=== PATIENT | female | born 1945 | race Caucasian/White ===

== ENCOUNTER 2016-04-01 19:36 | Observation (INO) | payer MEDICARE, MEDICAID ==
[~2016-04-01] VITALS: Ht 149.9 cm; Wt 74.7 kg
[~2016-04-01 19:36] MED LIST: /WARF25TA; ACET65TA; AZEL0.05; BACL10TA2; BACL10TA2 PO; BISA10SU2; BISA5TA; BONI150T PO; BONIVA; CALC12502; CALC500C PO; CLOBETASOL; COLA100C PO; DETR4CAP; DETR4CAP10 PO; DILA100C; DILA100C PO; DOVONEX; DRIS50002 PO; DULC10SU2 PR; FLUO0.0114 AS; KEFL500C7 PO; MILKSUS; MIRALEX; NORV5TAB PO; NYST100024 TOP; PERC5TAB6 PO; PERC5TAB8; PERCOCET PO; PHEN30CA PO; PRIL20CA9 PO; SENO8.6T2 PO; SENO8.6T5; SERT-141 PO; THERGRAN; TYLE325T5 PO; VITA100C7; VITA500C3 PO; VITACHTA PO; VITAMIN D50000 UNT; ZOCO10TA; ZOCO10TA PO; [UNRECOGNIZED DRUG - CODE] AS; [UNRECOGNIZED DRUG - CODE] PO; [UNRECOGNIZED DRUG - OTHER]; boniva
[2016-04-01 20:27] LABS: ANION GAP 7 MEQ/L (8-16); BLOOD UREA NITROGEN 11 MG/DL (7-18); CALCIUM LEVEL 9.2 MG/DL (8.8-10.2); CARBON DIOXIDE LEVEL 33 MEQ/L (21-32); CHLORIDE LEVEL 97 MEQ/L (98-107); CREATININE FOR GFR 0.69 MG/DL (0.55-1.02); GLOMERULAR FILTRATION RATE > 60.0 (>39); GLUCOSE, FASTING 106 MG/DL (83-110); POTASSIUM SERUM 3.8 MEQ/L (3.5-5.1); SODIUM LEVEL 137 MEQ/L (136-145)
[2016-04-01 20:29] LABS: BASO # 0.1 K/mm3 (0.0-0.2); BASO % 0.4 % (0.0-1.0); EOS # 0.2 K/mm3 (0.0-0.50); EOS % 1.3 % (0.0-3.0); LARGE UNSTAINED CELL # 0.4 K/mm3 (0.0-0.4); LARGE UNSTAINED CELL % 2.3 % (0.0-4.0); LYMPH # 9.6 K/mm3 (1.5-4.5); LYMPH % 60.8 % (24.0-44.0); MEAN CORPUSCULAR HEMOGLOBIN 30.8 pg (27.0-33.0); MEAN CORPUSCULAR HGB CONC 33.2 g/dl (32.0-36.5); MEAN CORPUSCULAR VOLUME 92.6 fl (80.0-96.0); MONO # 0.7 K/mm3 (0.0-0.8); MONO % 4.5 % (0.0-5.0); NEUTROPHILS # 4.7 K/mm3 (1.8-7.7); NEUTROPHILS % 30.7 % (36.0-66.0); PLATELET COUNT, AUTOMATED 242 k/mm3 (150-450); RED CELL DISTRIBUTION WIDTH 12.3 % (11.5-14.5)
[2016-04-01 20:36] LABS: INR 0.95
[2016-04-01 20:48] LABS: WHITE BLOOD COUNT 15.3 K/mm3 (4.0-10.0)
[2016-04-01] MEDS ORDERED: hydrALAZINE INJ 20 MG/ML VIAL As Ordered ONE (21:04)
--- NOTE | 2016-04-01 21:10 | REPUSA ---
CT of the head Clinical history: CVA. Technique: Multiple axial CT images were obtained through the head without administration of contrast . Findings: Post-surgical changes in the right frontal region causes extreme metallic artifact, limitin g evaluation of this region. The visualized ventricles and sulci are symmetric bilaterally. Encephalo malacia the right temporal lobe is noted. There is no evidence of acute hemorrhage or infarct. There is no midline shift, mass effect, or extra-axial fluid collection. The osseous structures are unremar kable. The visualized paranasal sinuses and mastoid air cells are clear. Impression: No acute abnormality on this highly limited study. The right frontal lobe is completely o bscured. Chronic surgical changes in the right frontal region with encephalomalacia the right tempora l lobe is appreciated.
[2016-04-01] MEDS ORDERED: DETR4CAP10 PO (22:39)
[2016-04-01] MEDS ORDERED: VITMTA PO (22:39)
[2016-04-01] MEDS ORDERED: ASCO500T PO (22:39)
[2016-04-01] MEDS ORDERED: PHEN30CA PO (22:39)
[2016-04-01] MEDS ORDERED: STEL45IN SC (22:41)
[2016-04-01] MEDS ORDERED: FLUT0.003 EXT (22:41)
[2016-04-01] MEDS ORDERED: ONDANSETRON 4MG/2ML VIAL (J2405) IV PRN (23:30)
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
[2016-04-02] VITALS (8 sets, daily range): BP systolic 134–167; BP diastolic 60–78; PULSE 79
[2016-04-02] MEDS: PHENYTOIN ER 100 MG CAP PO SCH ×3 (02:28→21:07)
[2016-04-02] MEDS: SERTRALINE HCL 50 MG TAB PO SCH ×2 (02:29→21:06)
[2016-04-02] MEDS: SIMVASTATIN 10 MG TAB PO SCH ×2 (02:29→21:06)
[2016-04-02] MEDS: PHENYTOIN ER 30 MG CAP PO SCH ×2 (02:29→21:07)
[2016-04-02] MEDS: BACLOFEN 10 MG TAB PO SCH ×4 (02:29→21:06)
[2016-04-02] MEDS: NYSTATIN 100,000 UNITS/GM TOPICAL PWD 15 GM TOP SCH ×3 (02:30→21:00)
[2016-04-02] MEDS ORDERED: HEPARIN SOD (PORCINE) 5000 UNITS/ML VIAL As Ordered ONE ×2 (05:42→13:23)
[2016-04-02] MEDS: HEPARIN SOD (PORCINE) 5000 UNITS/ML VIAL SC SCH ×3 (05:46→21:07)
[2016-04-02 07:19] LABS: MEAN CORPUSCULAR HGB CONC 33.8 g/dl (32.0-36.5); MEAN CORPUSCULAR VOLUME 91.5 fl (80.0-96.0); RED CELL DISTRIBUTION WIDTH 12.5 % (11.5-14.5); WHITE BLOOD COUNT 10.2 K/mm3 (4.0-10.0)
[2016-04-02 07:52] LABS: ANION GAP 9 MEQ/L (8-16); BLOOD UREA NITROGEN 9 MG/DL (7-18); CALCIUM LEVEL 8.5 MG/DL (8.8-10.2); CARBON DIOXIDE LEVEL 25 MEQ/L (21-32); CHLORIDE LEVEL 107 MEQ/L (98-107); GLOMERULAR FILTRATION RATE > 60.0 (>39); GLUCOSE, FASTING 106 MG/DL (83-110); POTASSIUM SERUM 3.9 MEQ/L (3.5-5.1); SODIUM LEVEL 141 MEQ/L (136-145)
--- NOTE | 2016-04-02 08:23 | REP ---
Portable chest, 08:26 p.m., single AP view, the patient semi upright: Comparison is 2014. The lung estrada are clear. The cardiac size is normal The jesus, mediastinum, and bony thorax are unremarkable. Impression: Negative portable chest. Signed by Agustín Moreland MD 04/02/2016 08:14 A
[2016-04-02] MEDS: ASCORBIC ACID 500 MG TAB PO SCH (09:16)
[2016-04-02] MEDS: MULTIVITAMINS/MINERALS THERAP 1 TAB PO SCH (09:16)
[2016-04-02] MEDS: OMEPRAZOLE 20 MG CAP PO SCH (09:16)
[2016-04-02] MEDS: CALCIUM CARBONATE 500 MG CHEW U/D PO SCH ×2 (09:16→21:07)
[2016-04-02] MEDS: amLODIPine 5 MG TAB PO SCH (09:16)
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
--- NOTE | 2016-04-02 14:21 | EDDOCDS ---
Physician Documentation [facility] Name: Smitha Davis Age: 71 yrs Sex: Female : 1945 Arrival Date: 04/01/2016 Time: 19:36 Bed Admit Hold Private MD: NO PRIMARY PHYSICIAN, . Disposition: 04/01/16 22:06 Hospitalization ordered by Brian Do for Inpatient Admission. Preliminary diagnosis is Transient cerebral ischemic attack, unspecified. - Bed requested for PCU. - Status is Inpatient Admission. bcj - Condition is Stable. - Problem is an acute exacerbation. - Symptoms have improved. Historical: - Allergies: No known drug Allergies; - Home Meds: 1. Dilantin Oral 100 mg twice a day 2. Zocor 10 mg Oral tab once daily 3. Vitamin C Oral 4. Boniva 150 mg oral tab once a month 5. Detrol LA 4 mg Oral cp24 6. calcium carbonate 500 mg calcium (1,250 mg) Oral cap 7. Nystatin Topical - PMHx: Unable to obtain; - PSHx: Unable to obtain; - Social history: Smoking status: Patient states was never smoker of tobacco. No barriers to communication noted, The patient speaks fluent Russian, Speaks appropriately for age. - Family history: Not pertinent. - : The pt / caregiver states he / she is not on anticoagulants. Home medication list is obtained from the facility APR. - Exposure Risk Screening:: None identified. Vital Signs: 04/01 19:38 BP 201 / 70; Pulse 59; Resp 18 S; Temp 96.1(O); Pulse Ox 100% on R/A; Weight 63.5 kg / gr2 139.99 lbs (R); Height 4 ft. 11 in. (149.86 cm) (R); Pain 5/10; 20:59 Pulse 86 MON; Pulse Ox 100% ; ld5 21:00 BP 195 / 69 (auto/); ld5 21:10 BP 188 / 79 (auto/); ld5 21:10 Pulse 60 MON; ld5 21:15 BP 172 / 79 (auto/); ld5 21:15 Pulse 60 MON; Pulse Ox 99% ; ld5 21:30 BP 154 / 70 (auto/); ld5 21:30 Pulse 71 MON; Pulse Ox 100% ; ld5 21:45 BP 164 / 74 (auto/); ld5 21:46 Pulse 78 MON; Pulse Ox 100% ; ld5 22:00 BP 138 / 65 (auto/); ld5 22:00 Pulse 75 MON; Pulse Ox 100% ; ld5 22:15 BP 126 / 58 (auto/); ld5 22:15 Pulse 70 MON; Pulse Ox 100% ; ld5 22:45 BP 133 / 62 (auto/); ld5 22:45 Pulse 71 MON; Resp 16; Temp 98; Pulse Ox 98% ; ld5 23:00 BP 137 / 63 (auto/); ld5 23:00 Pulse 70 MON; Pulse Ox 98% ; ld5 23:15 BP 152 / 71 (auto/); ld5 23:15 Pulse 72 MON; Pulse Ox 98% ; ld5 23:30 BP 148 / 69 (auto/); ld5 23:30 Pulse 74 MON; Pulse Ox 99% ; ld5 23:45 BP 149 / 69 (auto/); ld5 23:45 Pulse 71 MON; Pulse Ox 97% ; ld5 04/02 00:00 Pulse 68 MON; Pulse Ox 95% ; ld5 00:00 BP 117 / 58 (auto/); ld5 00:15 BP 112 / 54 (auto/); ld5 00:15 Pulse 67 MON; Pulse Ox 95% ; ld5 00:30 BP 135 / 63 (auto/); ld5 00:30 Pulse 69 MON; Pulse Ox 99% ; ld5 00:45 BP 143 / 65 (auto/); ld5 00:45 Pulse 68 MON; Pulse Ox 100% ; ld5 01:00 BP 131 / 57 (auto/); ld5 01:00 Pulse 65 MON; Pulse Ox 98% ; ld5 04/01 19:38 Body Mass Index 28.28 (63.50 kg, 149.86 cm) gr2 MDM: 04/01 20:13 RN interventions must not delay CT ordered. mm11 20:13 Cooker Syrup/Pulse Ox/q 15 min VS ordered. mm11 20:13 Accucheck ordered. mm11 20:13 IV Saline Lock ordered. mm11 20:13 Neuro VS q 15 Minutes ordered. mm11 20:13 Patient must be on CC stretcher and weighed via bed scale ordered. mm11 20:13 Rhythm Strip to chart ordered. mm11 20:14 Type & Screen Ordered. EDMS 20:14 CT Head Without Contrast Ordered. EDMS 20:15 Basic Metabolic Profile Ordered. EDMS 20:15 CBC with Diff Ordered. EDMS 20:15 Partial Thromboplastin Time Ordered. EDMS 20:15 Prothrombin Time Profile\E\INR Ordered. EDMS 20:17 Chest, 1 View Ordered. EDMS 20:17 ECG WITH READING ER PHYS+CARDIAG ordered. EDMS 20:25 Fingerstick Blood Sugar Ordered. EDMS 20:47 Financial registration complete. [email or web address] 20:47 [facility] Payment Agreement was scanned into [employer] and attached to record. [email or web address] 20:56 Basic Metabolic Profile Reviewed. mm11 20:56 CBC with Diff Reviewed. mm11 20:56 Partial Thromboplastin Time Reviewed. mm11 20:56 Prothrombin Time Profile\E\INR Reviewed. mm11 20:56 Type & Screen Reviewed. mm11 20:56 Fingerstick Blood Sugar Reviewed. mm11 20:57 hydrALAZINE 10 mg IV at bolus once ordered. mm11 20:58 UA Ordered. EDMS 20:58 Urine Culture Ordered. EDMS 21:36 UA Reviewed. mm11 21:36 CT Head Without Contrast Reviewed. mm11 21:52 BED REQUEST+ADM ordered. EDMS 22:33 NS 0.9% 1000 ml IV at 75 mL/hr continuous ordered. mm11 23:26 Admission / Observation Status ordered. EDMS 23:26 2 GRAM SODIUM DIET ordered. EDMS 23:27 PHENYTOIN Ordered. EDMS 23:27 COMPLETE BLOOD COUNT Ordered. EDMS 23:27 BASIC METABOLIC PROFILE Ordered. EDMS 23:27 MAGNESIUM LEVEL Ordered. EDMS 23:27 BLOOD CULTURES Ordered. EDMS 23:29 PHYSICAL THERAPY EVAL & TREAT ordered. EDMS 04/02 09:29 T-Sheet-- Draft Copy was scanned into [employer] and attached to record. Point of Care Testing: Blood Glucose: 04/01 20:15 Blood Glucose: 108 mg/dL; ld5 Ranges: Administered Medications: 20:57 CANCELLED (Other Intervention Used): Labetalol 10 mg IVP at bolus once over 2 mins mm11 21:17 Drug: hydrALAZINE 10 mg [hydralazine 20 mg/mL injection solution] Route: IV; Rate: ld5 bolus; Site: right antecubital; 22:45 Follow up: Response: Blood pressure is improved ld5 22:45 Drug: NS 0.9% 1000 ml [sodium chloride 0.9 % intravenous solution] Route: IV; Rate: 75 ld5 mL/hr; Site: right antecubital; Signatures: Dispatcher [employer] Phu Dale, RN RN Josef Moreau RN RN cz Yajaira Pulido, Reg Reg gb Sixto Hayward, DO mm11 Rama Law RN RN ld5 Kori Mcclelland RN RN [facility]2 Radha Richards, Reg Reg [email or web address] The chart was reviewed and I authenticate all verbal orders and agree with the evaluation and treatment provided.Corrections: (The following items were deleted from the chart) 20:57 20:56 Labetalol 10 mg IVP at bolus once over 2 mins ordered. mm11 mm11 Attachments: 20:47 [facility] Payment Agreement [email or web address] 04/02 09:29 T-Sheet-- Draft Copy MTDD
--- NOTE | 2016-04-02 14:22 | EDDOCDS ---
Nurse's Notes [facility] Name: Smitha Davis Age: 71 yrs Sex: Female : 1945 Arrival Date: 04/01/2016 Time: 19:36 Bed Admit Hold Private MD: NO PRIMARY PHYSICIAN, . Diagnosis: Transient cerebral ischemic attack, unspecified Presentation: 04/01 19:46 Presenting complaint: inpatient coder says that pt was eating dinner around 1730 and head cz slumped forward and speech became abnormal. pt complains of headache .speech is thick and not normal per inpatient coder. The last date and time the patient was known to be well was was at 17:00 on April 01, 2016. Adult Sepsis Screening: Patient has new or worsening altered mentation (1 point). Patient's respiratory rate is less than 22. Systolic blood pressure is greater than 100. Patient has a qSOFA score of 1- Negative Sepsis Screen. Suicide/Homicide risk assessment- the patient denies having any suicidal and/or homicidal ideations and does not present with any other emotional, behavioral or mental health complaints. Status: Patient is not a general service officer or dependent. Transition of care: patient was not received from another setting of care. 19:46 Acuity: ZACHARIAH Level 2 cz 19:46 Method Of Arrival: Wheelchair cz 04/02 14:20 No acute neurological deficit is noted. Pre-hospital glucose is not applicable to this [facility] patient. Triage Assessment: 04/01 19:53 The onset of the patients symptoms was less than three hours ago. General: Appears cz uncomfortable. Pain: Location: face. Neurological: Level of Consciousness is awake, alert, Speech is slurred, Facial symmetry appears normal. Historical: - Allergies: No known drug Allergies; - Home Meds: 1. Dilantin Oral 100 mg twice a day 2. Zocor 10 mg Oral tab once daily 3. Vitamin C Oral 4. Boniva 150 mg oral tab once a month 5. Detrol LA 4 mg Oral cp24 6. calcium carbonate 500 mg calcium (1,250 mg) Oral cap 7. Nystatin Topical - PMHx: Unable to obtain; - PSHx: Unable to obtain; - Social history: Smoking status: Patient states was never smoker of tobacco. No barriers to communication noted, The patient speaks fluent Colombian, Speaks appropriately for age. - Family history: Not pertinent. - : The pt / caregiver states he / she is not on anticoagulants. Home medication list is obtained from the facility MAR. - Exposure Risk Screening:: None identified. Screenin:07 Screening information is obtained from the patient, residence staff, prior medical ld5 records. Fall risk: At risk due to apparent cognitive impairment. Assistance ADL's: Requires assistance with meal preparation, this assistance is provided by residence staff, bathing, assistance is provided by residence staff, dressing, assistance is provided by residence staff, toileting, assistance is provided by residence staff, ambulation, assistance is provided by Per staff, pt usually ambulatory with no assistance. medication administration, assistance is provided by residence staff. Abuse/DV Screen: The patient / caregiver reports he/she is: not in a situation that causes fear, pain or injury. home support is adequate. 04/02 14:18 Nutritional screening: No deficits noted. Advance Directives: There is no active DNR bcj order. Assessment: 04/01 20:03 General: Appears in no apparent distress, Behavior is cooperative. Pain: Location: head ld5 Quality of pain is described as "splitting". Neurological: Level of Consciousness is awake, obeys commands, Oriented to place, time, pt unable to fully state . Pt states January but is unable to finish. [facility] staff member states pt usually knows . Neurological: left foot weaker than right foot, strong telehealth nurse educator to bilateral hands. Speech delayed. Facial droop on left. Respiratory: Airway is patent Respiratory effort is even, unlabored. GI: Reports nausea, Denies vomiting. Musculoskeletal: contracted left hand. [facility] staff reports pt had accident as a child so has had problems to left arm since. 20:50 General: Appears in no apparent distress, Behavior is cooperative. Pain: Location: head ld5 Pain currently is 4 out of 10 on a pain scale. Neurological: Level of Consciousness is awake, alert, Oriented to person, place, time. Respiratory: Airway is patent Respiratory effort is even, unlabored, Breath sounds are clear bilaterally. GI: Bowel sounds present X 4 quads. Abd is soft and non tender X 4 quads. 21:18 General: Pt assisted with bedpan. Tolerated well. Pt medicated per orders. Family ld5 member and [facility] staff at bedside. No new complaints at this time. Will continue to monitor. 21:35 General: Pt laying in bed with eyes closed. Arouses to voice. Will continue to monitor. ld5 21:50 General: Appears in no apparent distress. Respiratory: Airway is patent Respiratory ld5 effort is even, unlabored. Derm: Skin is intact. 22:24 General: Appears in no apparent distress. General: Pt resting comfortably in bed. Will ld5 continue to monitor. Respiratory: Airway is patent Respiratory effort is even, unlabored. 22:45 General: Pt states feeling "better". Headache minimal. Fluids started per orders. Spoke ld5 with pt, family member and [facility] staff about bed availability and the chance of staying in ER. All are understanding at this time. Will continue to monitor. 23:36 General: Appears in no apparent distress, Pt sleeping. Respirations easy and unlabored. ld5 Will continue to monitor. 04/02 00:19 General: Pt sleeping. No apparent distress. Fluids infusing. Will continue to monitor. ld5 00:48 General: Appears in no apparent distress, to be sleeping. Respiratory: Airway is patent ld5 Respiratory effort is even, unlabored. 01:03 General: Appears in no apparent distress. Respiratory: Airway is patent Respiratory ld5 effort is even, unlabored. Vital Signs: 04/01 19:38 BP 201 / 70; Pulse 59; Resp 18 S; Temp 96.1(O); Pulse Ox 100% on R/A; Weight 63.5 kg gr2 (R); Height 4 ft. 11 in. (149.86 cm) (R); Pain 5/10; 20:59 Pulse 86 MON; Pulse Ox 100% ; ld5 21:00 BP 195 / 69 (auto/); ld5 21:10 BP 188 / 79 (auto/); ld5 21:10 Pulse 60 MON; ld5 21:15 BP 172 / 79 (auto/); ld5 21:15 Pulse 60 MON; Pulse Ox 99% ; ld5 21:30 BP 154 / 70 (auto/); ld5 21:30 Pulse 71 MON; Pulse Ox 100% ; ld5 21:45 BP 164 / 74 (auto/); ld5 21:46 Pulse 78 MON; Pulse Ox 100% ; ld5 22:00 BP 138 / 65 (auto/); ld5 22:00 Pulse 75 MON; Pulse Ox 100% ; ld5 22:15 BP 126 / 58 (auto/); ld5 22:15 Pulse 70 MON; Pulse Ox 100% ; ld5 22:45 BP 133 / 62 (auto/); ld5 22:45 Pulse 71 MON; Resp 16; Temp 98; Pulse Ox 98% ; ld5 23:00 BP 137 / 63 (auto/); ld5 23:00 Pulse 70 MON; Pulse Ox 98% ; ld5 23:15 BP 152 / 71 (auto/); ld5 23:15 Pulse 72 MON; Pulse Ox 98% ; ld5 23:30 BP 148 / 69 (auto/); ld5 23:30 Pulse 74 MON; Pulse Ox 99% ; ld5 23:45 BP 149 / 69 (auto/); ld5 23:45 Pulse 71 MON; Pulse Ox 97% ; ld5 02 00:00 Pulse 68 MON; Pulse Ox 95% ; ld5 00:00 BP 117 / 58 (auto/); ld5 00:15 BP 112 / 54 (auto/); ld5 00:15 Pulse 67 MON; Pulse Ox 95% ; ld5 00:30 BP 135 / 63 (auto/); ld5 00:30 Pulse 69 MON; Pulse Ox 99% ; ld5 00:45 BP 143 / 65 (auto/); ld5 00:45 Pulse 68 MON; Pulse Ox 100% ; ld5 01:00 BP 131 / 57 (auto/); ld5 01:00 Pulse 65 MON; Pulse Ox 98% ; ld5 04/01 19:38 Body Mass Index 28.28 (63.50 kg, 149.86 cm) gr2 Vitals: 04/01 19:38 Log In Time: April 01, 2016 at 19:38. RN notified that patient meets Red Flag gr2 criteria. 04/02 14:21 Glucose Measurement D-stick deferred by provider. [facility] ED Course: 04/01 19:38 Patient visited by Ras Chirinos. gr2 19:38 NO PRIMARY PHYSICIAN, . is Private Physician. gr2 19:38 Patient moved to Waiting gr2 19:41 Patient moved to 1 cz 19:42 Sixto Hayward DO is Attending Physician. mm11 19:42 Patient visited by Sixto Hayward DO. mm11 19:42 Patient visited by Ras Chirinos. gr2 19:49 Triage Initiated cz 20:08 Patient visited by Rama Law,ASHLYN. ld5 20:08 Inserted saline lock: 18 gauge in right antecubital area and blood collected. The ld5 patient tolerated the procedure well. Labs drawn. (by ED staff). Sent per order to lab. 20:12 Patient visited by Sixto Hayward DO. mm11 20:14 Type & Screen Sent. ld5 20:18 Basic Metabolic Profile Sent. ld5 20:18 CBC with Diff Sent. ld5 20:19 Patient visited by Rama Law RN. ld5 20:19 Partial Thromboplastin Time Sent. ld5 20:19 Prothrombin Time Profile\\E\\INR Sent. ld5 20:20 Patient visited by Eliza Butt PCA. cln 20:20 EKG done. (by ED staff). Reviewed by Sixto Hayward DO. cln 20:47 [facility] Payment Agreement was scanned into [employer] and attached to record. ks16 21:12 CT Head Without Contrast Returned. EDMS 21:16 Urine Culture Sent. ld5 21:16 UA Sent. ld5 21:19 Patient visited by Rama Law RN. ld5 21:36 Patient visited by Rama Law,ASHLYN. ld5 22:06 Brian Do is Hospitalizing Provider. mm11 22:11 Patient visited by Rama Law RN. ld5 22:25 Patient visited by Rama Law,ASHLYN. ld5 22:47 Patient visited by Rama Law,ASHLYN. ld5 23:37 Patient visited by Rama Law RN. ld5 23:43 Patient moved to Admit Hold feb 22 00:20 Patient visited by Rama Law,ASHLYN. ld5 01:04 Patient visited by Rama Law,ASHLYN. ld5 01:16 Nighat Leonardo,RN is Primary Nurse. feb 01:16 Patient moved to 17 feb 03:19 Patient moved to Admit Hold feb 07:45 Primary Nurse role handed off by Nighat Leonardo,RN kr3 08:47 Chest, 1 View Returned. EDMS 09:29 T-Sheet-- Draft Copy was scanned into [employer] and attached to record. gb 14:18 No apparent distress. Resting quietly. bcj 14:18 The patient / caregiver is instructed regarding the plan of care and ED course. [facility] 14:18 No procedures done that require assistance. j 14:21 Patient visited by Phu Blair RN. j Administered Medications: 04/01 20:57 CANCELLED (Other Intervention Used): Labetalol 10 mg IVP at bolus once over 2 mins mm11 21:17 Drug: hydrALAZINE 10 mg [hydralazine 20 mg/mL injection solution] Route: IV; Rate: ld5 bolus; Site: right antecubital; 22:45 Follow up: Response: Blood pressure is improved ld5 22:45 Drug: NS 0.9% 1000 ml [sodium chloride 0.9 % intravenous solution] Route: IV; Rate: 75 ld5 mL/hr; Site: right antecubital; Point of Care Testing: Blood Glucose: 20:15 Blood Glucose: 108 mg/dL; ld5 Ranges: Output: 04/02 01:24 Urine: 525.00ml (Voided); Total: 525.00ml. ld5 Order Results: Lab Order: Basic Metabolic Profile; SPEC'M 04/01/16 19:57 Test: GLUCOSE, FASTING; Value: 106; Range: 83-110; Units: MG/DL; Status: F Test: BLOOD UREA NITROGEN; Value: 11; Range: 7-18; Units: MG/DL; Status: F Test: CREATININE FOR GFR; Value: 0.69; Range: 0.55-1.02; Units: MG/DL; Status: F Test: GLOMERULAR FILTRATION RATE; Value: > 60.0; Range: >39; Status: F Test: SODIUM LEVEL; Value: 137; Range: 136-145; Units: MEQ/L; Status: F Test: POTASSIUM SERUM; Value: 3.8; Range: 3.5-5.1; Units: MEQ/L; Status: F Test: CHLORIDE LEVEL; Value: 97; Range: 98-107; Abnormal: Below low normal; Units: MEQ/L; Status: F Test: CARBON DIOXIDE LEVEL; Value: 33; Range: 21-32; Abnormal: Above high normal; Units: MEQ/L; Status: F Test: ANION GAP; Value: 7; Range: 8-16; Abnormal: Below low normal; Units: MEQ/L; Status: F Test: CALCIUM LEVEL; Value: 9.2; Range: 8.8-10.2; Units: MG/DL; Status: F Test Note: ; Units are mL/min/1.73 m2 Chronic Kidney Disease Staging per NKF: Stage I & II GFR >=60 Normal to Mildly Decreased Stage III GFR 30-59 Moderately Decreased Stage IV GFR 15-29 Severely Decreased Stage V GFR <15 Very Little GFR Left ESRD GFR <15 on LISW Lab Order: CBC with Diff; SPEC'M 04/01/16 19:57 Test: WHITE BLOOD COUNT; Value: 15.3; Range: 4.0-10.0; Abnormal: Above high normal; Units: K/mm3; Status: F Test: RED BLOOD COUNT; Value: 4.33; Range: 4.00-5.40; Units: M/mm3; Status: F Test: HEMOGLOBIN; Value: 13.3; Range: 12.0-16.0; Units: g/dl; Status: F Test: HEMATOCRIT; Value: 40.1; Range: 36.0-47.0; Units: %; Status: F Test: MEAN CORPUSCULAR VOLUME; Value: 92.6; Range: 80.0-96.0; Units: fl; Status: F Test: MEAN CORPUSCULAR HEMOGLOBIN; Value: 30.8; Range: 27.0-33.0; Units: pg; Status: F Test: MEAN CORPUSCULAR HGB CONC; Value: 33.2; Range: 32.0-36.5; Units: g/dl; Status: F Test: RED CELL DISTRIBUTION WIDTH; Value: 12.3; Range: 11.5-14.5; Units: %; Status: F Test: PLATELET COUNT, AUTOMATED; Value: 242; Range: 150-450; Units: k/mm3; Status: F Test: NEUTROPHILS %; Value: 30.7; Range: 36.0-66.0; Abnormal: Below low normal; Units: %; Status: F Test: LYMPH %; Value: 60.8; Range: 24.0-44.0; Abnormal: Above high normal; Units: %; Status: F Test: MONO %; Value: 4.5; Range: 0.0-5.0; Units: %; Status: F Test: EOS %; Value: 1.3; Range: 0.0-3.0; Units: %; Status: F Test: BASO %; Value: 0.4; Range: 0.0-1.0; Units: %; Status: F Test: LARGE UNSTAINED CELL %; Value: 2.3; Range: 0.0-4.0; Units: %; Status: F Test: NEUTROPHILS #; Value: 4.7; Range: 1.8-7.7; Units: K/mm3; Status: F Test: LYMPH #; Value: 9.6; Range: 1.5-4.5; Abnormal: Above high normal; Units: K/mm3; Status: F Test: MONO #; Value: 0.7; Range: 0.0-0.8; Units: K/mm3; Status: F Test: EOS #; Value: 0.2; Range: 0.0-0.50; Units: K/mm3; Status: F Test: BASO #; Value: 0.1; Range: 0.0-0.2; Units: K/mm3; Status: F Test: LARGE UNSTAINED CELL #; Value: 0.4; Range: 0.0-0.4; Units: K/mm3; Status: F Test Note: ; A Pathologist review of this differential can help in the evaluation of a differential diagnosis. Please order a Pathologist Review (PATHREVCOMP) if deemed necessary. Results are subject to change if a Pathologist Review is performed. Lab Order: Partial Thromboplastin Time; SPEC'M 04/01/16 19:57 Test: PARTIAL THROMBOPLASTIN TIME; Value: 28.4; Range: 26.6-37.1; Units: SECONDS; Status: F Lab Order: Prothrombin Time Profile\\E\\INR; SPEC'M 04/01/16 19:57 Test: PROTHROMBIN TIME; Value: 12.8; Range: 12.3-14.5; Units: SECONDS; Status: F Test: INR; Value: 0.95; Status: F Test Note: ; THERAPUTIC HUMAN INR VALUES INDICATIONS NORMAL RANGES PROPHYLAXIS/TREATMENT OF: VENOUS THROMBOSIS 2.0-3.0 PULMONARY EMBOLISM 2.0-3.0 PREVENTION OF SYSTEMIC EMBOLISM FROM: TISSUE HEART VALVES 2.0-3.0 ACUTE MYOCARDIAL INFARCTION 2.0-3.0 VALVULAR HEART DISEASE 2.0-3.0 ATRIAL FIBRILLATION 2.0-3.0 MECHANICAL VALVES(HIGH RISK) 2.5-3.5 RECURRENT MYOCARDIAL INFARCTION 2.5-3.5 Lab Order: Type & Screen; [facility] 04/01/16 19:57 Test: BLOOD TYPE; Value: A NEG; Status: F Test: AB SCREEN (INDIRECT CARMENCITA)VIS; Value: NEGATIVE; Status: F Lab Order: Fingerstick Blood Sugar; [facility] 04/01/16 20:17 Test: BEDSIDE GLUCOSE; Value: 108; Range: 83-110; Units: MG/DL; Status: F Lab Order: UA; [facility] 04/01/16 21:14 Test: APPEARANCE, URINE; Value: CLEAR; Range: CLEAR; Status: F Test: COLOR, URINE; Value: COLORLESS; Range: YELLOW; Status: F Test: PH,URINE; Value: 8.0; Range: 5.0-9.0; Units: UNITS; Status: F Test: SPECIFIC GRAVITY URINE AUTO; Value: 1.002; Range: 1.002-1.035; Status: F Test: PROTEIN, URINE AUTO; Value: NEGATIVE; Range: NEGATIVE; Units: mg/dL; Status: F Test: GLUCOSE, URINE (UA) AUTO; Value: NEGATIVE; Range: NEGATIVE; Units: mg/dL; Status: F Test: KETONE, URINE AUTO; Value: NEGATIVE; Range: NEGATIVE; Units: mg/dL; Status: F Test: UROBILINOGEN, URINE AUTO; Value: 0.2; Range: 0.0-2.0; Units: mg/dL; Status: F Test: BILIRUBIN, URINE AUTO; Value: NEGATIVE; Range: NEGATIVE; Status: F Test: NITRITE, URINE AUTO; Value: NEGATIVE; Range: NEGATIVE; Status: F Test: LEUKOCYTE ESTERASE, URINE AUTO; Value: NEGATIVE; Range: NEGATIVE; Status: F Test: BLOOD, URINE BLOOD; Value: NEGATIVE; Range: NEGATIVE; Status: F Test: WBC, URINE AUTO; Value: 1; Range: 0-3; Units: /HPF; Status: F Test: RBC, URINE AUTO; Value: 1; Range: 0-3; Units: /HPF; Status: F Test: BACTERIA, URINE AUTO; Value: NEGATIVE; Range: NEGATIVE; Status: F Test: SQUAMOUS EPITHELIAL CELL UR AU; Value: 0; Range: 0-6; Units: /HPF; Status: F Test: HYALINE CAST, URINE AUTO; Value: 0; Range: 0-1; Units: /LPF; Status: F Lab Order: PHENYTOIN; 04/02/16 07:02 Test: PHENYTOIN (DILANTIN); Value: 19.3; Range: 10.0-20.0; Units: UG/ML; Status: F Lab Order: COMPLETE BLOOD COUNT; 04/02/16 07:02 Test: WHITE BLOOD COUNT; Value: 10.2; Range: 4.0-10.0; Abnormal: Above high normal; Units: K/mm3; Status: F Test: RED BLOOD COUNT; Value: 4.26; Range: 4.00-5.40; Units: M/mm3; Status: F Test: HEMOGLOBIN; Value: 13.2; Range: 12.0-16.0; Units: g/dl; Status: F Test: HEMATOCRIT; Value: 39.0; Range: 36.0-47.0; Units: %; Status: F Test: MEAN CORPUSCULAR VOLUME; Value: 91.5; Range: 80.0-96.0; Units: fl; Status: F Test: MEAN CORPUSCULAR HEMOGLOBIN; Value: 31.0; Range: 27.0-33.0; Units: pg; Status: F Test: MEAN CORPUSCULAR HGB CONC; Value: 33.8; Range: 32.0-36.5; Units: g/dl; Status: F Test: RED CELL DISTRIBUTION WIDTH; Value: 12.5; Range: 11.5-14.5; Units: %; Status: F Test: PLATELET COUNT, AUTOMATED; Value: 198; Range: 150-450; Units: k/mm3; Status: F Lab Order: BASIC METABOLIC PROFILE; [facility]04/02/16 07:02 Test: GLUCOSE, FASTING; Value: 106; Range: 83-110; Units: MG/DL; Status: F Test: BLOOD UREA NITROGEN; Value: 9; Range: 7-18; Units: MG/DL; Status: F Test: CREATININE FOR GFR; Value: 0.50; Range: 0.55-1.02; Abnormal: Below low normal; Units: MG/DL; Status: F Test: GLOMERULAR FILTRATION RATE; Value: > 60.0; Range: >39; Status: F Test: SODIUM LEVEL; Value: 141; Range: 136-145; Units: MEQ/L; Status: F Test: POTASSIUM SERUM; Value: 3.9; Range: 3.5-5.1; Units: MEQ/L; Status: F Test: CHLORIDE LEVEL; Value: 107; Range: 98-107; Units: MEQ/L; Status: F Test: CARBON DIOXIDE LEVEL; Value: 25; Range: 21-32; Units: MEQ/L; Status: F Test: ANION GAP; Value: 9; Range: 8-16; Units: MEQ/L; Status: F Test: CALCIUM LEVEL; Value: 8.5; Range: 8.8-10.2; Abnormal: Below low normal; Units: MG/DL; Status: F Test Note: ; Units are mL/min/1.73 m2 Chronic Kidney Disease Staging per NKF: Stage I & II GFR >=60 Normal to Mildly Decreased Stage III GFR 30-59 Moderately Decreased Stage IV GFR 15-29 Severely Decreased Stage V GFR <15 Very Little GFR Left ESRD GFR <15 on LISW Lab Order: MAGNESIUM LEVEL; SPEC'M 04/02/16 07:02 Test: MAGNESIUM LEVEL; Value: 2.0; Range: 1.8-2.4; Units: MG/DL; Status: F Radiology Order: CT Head Without Contrast Test: CT Head Without Contrast REASON FOR EXAMINATION: CVA <4.5hrs; ; CT of the head; Clinical history: CVA.; Technique: Multiple axial CT images were obtained through the head without administration of contrast; .; Findings: Post-surgical changes in the right frontal region causes extreme metallic artifact, limitin; g evaluation of this region. The visualized ventricles and sulci are symmetric bilaterally. Encephalo; malacia the right temporal lobe is noted. There is no evidence of acute hemorrhage or infarct. There; is no midline shift, mass effect, or extra-axial fluid collection. The osseous structures are unremar; kable. The visualized paranasal sinuses and mastoid air cells are clear.; Impression: No acute abnormality on this highly limited study. The right frontal lobe is completely o; bscured. Chronic surgical changes in the right frontal region with encephalomalacia the right tempora; l lobe is appreciated.; ; Radiology Order: Chest, 1 View Test: Chest, 1 View REASON FOR EXAMINATION: CVA <4.5hrs; Portable chest, 08:26 p.m., single AP view, the patient semi upright:; ; Comparison is 2014.; ; The lung estrada are clear. The cardiac size is normal; ; The jesus, mediastinum, and bony thorax are unremarkable.; ; Impression:; ; Negative portable chest.; ; ; Signed by; Agustín Moreland MD 04/02/2016 08:14 A; Outcome: 04/01 22:06 Decision to Hospitalize by Provider. mm11 04/02 14:18 Discharge Assessment: patient administered narcotics - no. The following High Risk [facility] Discharge criteria are identified: None. Admitted to PCU accompanied by nurse, accompanied by tech, via stretcher, on monitor. Condition: stable. No special radiology studies were completed. Property :Personal belongings accompany Pt. 14:21 Patient left the ED. [facility] Signatures: Dispatcher [employer] EDMS Phu Blair, RN ASHLYN Marie, Alondra Vargas, RN Josef Wick, Yajaira Hunter RN, Reg Reg gb Rachael Elizabeth,RN RN Sixto Escobedo, DO mm11 Rama Law,ASHLYN RN [email or web address] Ras Chiirnos gr2 Radha Richards, Reg Reg [email or web address] Daquan, Eliza, DIE STAMPER DIE STAMPER cln MTDD
[2016-04-02] MEDS: ACETAMINOPHEN TAB 650MG DOSE (2X325MG) PO PRN ×2 (17:39→23:17)
--- NOTE | 2016-04-02 21:15 | ECGEPIP ---
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
[2016-04-03] VITALS: BP 140/68; PULSE 61
[2016-04-03 04:00] VITALS: BP 133/70; PULSE 69
[2016-04-03] MEDS ORDERED: DOCUSATE SODIUM 100 MG CAP PO PRN (05:00)
[2016-04-03] MEDS ORDERED: SENNA 8.6 MG TAB (SENOKOT) PO PRN (05:00)
[2016-04-03] MEDS: HEPARIN SOD (PORCINE) 5000 UNITS/ML VIAL SC SCH (06:06)
[2016-04-03] MEDS: NYSTATIN 100,000 UNITS/GM TOPICAL PWD 15 GM TOP SCH (09:00)
[2016-04-03] MEDS: PHENYTOIN ER 100 MG CAP PO SCH (09:28)
[2016-04-03] MEDS: amLODIPine 5 MG TAB PO SCH (09:28)
[2016-04-03] MEDS: BACLOFEN 10 MG TAB PO SCH (09:28)
[2016-04-03] MEDS: OMEPRAZOLE 20 MG CAP PO SCH (09:29)
[2016-04-03] MEDS: ASCORBIC ACID 500 MG TAB PO SCH (09:29)
[2016-04-03] MEDS: CALCIUM CARBONATE 500 MG CHEW U/D PO SCH (09:29)
[2016-04-03] MEDS: MULTIVITAMINS/MINERALS THERAP 1 TAB PO SCH (09:29)
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
--- NOTE | 2016-04-04 15:22 | EDDOCDS ---
Physician Documentation [facility] Name: Smitha Davis Age: 71 yrs Sex: Female : 1945 Arrival Date: 04/01/2016 Time: 19:36 Bed Admit Hold Private MD: NO PRIMARY PHYSICIAN, . Disposition: 04/01/16 22:06 Hospitalization ordered by Brian Do for Inpatient Admission. Preliminary diagnosis is Transient cerebral ischemic attack, unspecified. - Bed requested for PCU. - Status is Inpatient Admission. bcj - Condition is Stable. - Problem is an acute exacerbation. - Symptoms have improved. Historical: - Allergies: No known drug Allergies; - Home Meds: 1. Dilantin Oral 100 mg twice a day 2. Zocor 10 mg Oral tab once daily 3. Vitamin C Oral 4. Boniva 150 mg oral tab once a month 5. Detrol LA 4 mg Oral cp24 6. calcium carbonate 500 mg calcium (1,250 mg) Oral cap 7. Nystatin Topical - PMHx: Unable to obtain; - PSHx: Unable to obtain; - Social history: Smoking status: Patient states was never smoker of tobacco. No barriers to communication noted, The patient speaks fluent Tajik, Speaks appropriately for age. - Family history: Not pertinent. - : The pt / caregiver states he / she is not on anticoagulants. Home medication list is obtained from the facility APR. - Exposure Risk Screening:: None identified. Vital Signs: 04/01 19:38 BP 201 / 70; Pulse 59; Resp 18 S; Temp 96.1(O); Pulse Ox 100% on R/A; Weight 63.5 kg / gr2 139.99 lbs (R); Height 4 ft. 11 in. (149.86 cm) (R); Pain 5/10; 20:59 Pulse 86 MON; Pulse Ox 100% ; ld5 21:00 BP 195 / 69 (auto/); ld5 21:10 BP 188 / 79 (auto/); ld5 21:10 Pulse 60 MON; ld5 21:15 BP 172 / 79 (auto/); ld5 21:15 Pulse 60 MON; Pulse Ox 99% ; ld5 21:30 BP 154 / 70 (auto/); ld5 21:30 Pulse 71 MON; Pulse Ox 100% ; ld5 21:45 BP 164 / 74 (auto/); ld5 21:46 Pulse 78 MON; Pulse Ox 100% ; ld5 22:00 BP 138 / 65 (auto/); ld5 22:00 Pulse 75 MON; Pulse Ox 100% ; ld5 22:15 BP 126 / 58 (auto/); ld5 22:15 Pulse 70 MON; Pulse Ox 100% ; ld5 22:45 BP 133 / 62 (auto/); ld5 22:45 Pulse 71 MON; Resp 16; Temp 98; Pulse Ox 98% ; ld5 23:00 BP 137 / 63 (auto/); ld5 23:00 Pulse 70 MON; Pulse Ox 98% ; ld5 23:15 BP 152 / 71 (auto/); ld5 23:15 Pulse 72 MON; Pulse Ox 98% ; ld5 23:30 BP 148 / 69 (auto/); ld5 23:30 Pulse 74 MON; Pulse Ox 99% ; ld5 23:45 BP 149 / 69 (auto/); ld5 23:45 Pulse 71 MON; Pulse Ox 97% ; ld5 04/02 00:00 Pulse 68 MON; Pulse Ox 95% ; ld5 00:00 BP 117 / 58 (auto/); ld5 00:15 BP 112 / 54 (auto/); ld5 00:15 Pulse 67 MON; Pulse Ox 95% ; ld5 00:30 BP 135 / 63 (auto/); ld5 00:30 Pulse 69 MON; Pulse Ox 99% ; ld5 00:45 BP 143 / 65 (auto/); ld5 00:45 Pulse 68 MON; Pulse Ox 100% ; ld5 01:00 BP 131 / 57 (auto/); ld5 01:00 Pulse 65 MON; Pulse Ox 98% ; ld5 04/01 19:38 Body Mass Index 28.28 (63.50 kg, 149.86 cm) gr2 MDM: 04/01 20:13 RN interventions must not delay CT ordered. mm11 20:13 [employer]/Pulse Ox/q 15 min VS ordered. mm11 20:13 Accucheck ordered. mm11 20:13 IV Saline Lock ordered. mm11 20:13 Neuro VS q 15 Minutes ordered. mm11 20:13 Patient must be on CC stretcher and weighed via bed scale ordered. mm11 20:13 Rhythm Strip to chart ordered. mm11 20:14 Type & Screen Ordered. EDMS 20:14 CT Head Without Contrast Ordered. EDMS 20:15 Basic Metabolic Profile Ordered. EDMS 20:15 CBC with Diff Ordered. EDMS 20:15 Partial Thromboplastin Time Ordered. EDMS 20:15 Prothrombin Time Profile\E\INR Ordered. EDMS 20:17 Chest, 1 View Ordered. EDMS 20:17 ECG WITH READING ER PHYS+CARDIAG ordered. EDMS 20:25 Fingerstick Blood Sugar Ordered. EDMS 20:47 Financial registration complete. [email or web address] 20:47 [facility] Payment Agreement was scanned into [employer] and attached to record. [email or web address] 20:56 Basic Metabolic Profile Reviewed. mm11 20:56 CBC with Diff Reviewed. mm11 20:56 Partial Thromboplastin Time Reviewed. mm11 20:56 Prothrombin Time Profile\E\INR Reviewed. mm11 20:56 Type & Screen Reviewed. mm11 20:56 Fingerstick Blood Sugar Reviewed. mm11 20:57 hydrALAZINE 10 mg IV at bolus once ordered. mm11 20:58 UA Ordered. EDMS 20:58 Urine Culture Ordered. EDMS 21:36 UA Reviewed. mm11 21:36 CT Head Without Contrast Reviewed. mm11 21:52 BED REQUEST+ADM ordered. EDMS 22:33 NS 0.9% 1000 ml IV at 75 mL/hr continuous ordered. mm11 23:26 Admission / Observation Status ordered. EDMS 23:26 2 GRAM SODIUM DIET ordered. EDMS 23:27 PHENYTOIN Ordered. EDMS 23:27 COMPLETE BLOOD COUNT Ordered. EDMS 23:27 BASIC METABOLIC PROFILE Ordered. EDMS 23:27 MAGNESIUM LEVEL Ordered. EDMS 23:27 BLOOD CULTURES Ordered. EDMS 23:29 PHYSICAL THERAPY EVAL & TREAT ordered. EDMS 04/02 09:29 T-Sheet-- Draft Copy was scanned into [employer] and attached to record. gb 14:39 Other: HEALTHCARE PROXY was scanned into [employer] and attached to record. gb 15:25 ECG/EKG was scanned into [employer] and attached to record. gb Point of Care Testing: Blood Glucose: 04/01 20:15 Blood Glucose: 108 mg/dL; ld5 Ranges: Administered Medications: 20:57 CANCELLED (Other Intervention Used): Labetalol 10 mg IVP at bolus once over 2 mins mm11 21:17 Drug: hydrALAZINE 10 mg [hydralazine 20 mg/mL injection solution] Route: IV; Rate: ld5 bolus; Site: right antecubital; 22:45 Follow up: Response: Blood pressure is improved ld5 22:45 Drug: NS 0.9% 1000 ml [sodium chloride 0.9 % intravenous solution] Route: IV; Rate: 75 ld5 mL/hr; Site: right antecubital; Signatures: Dispatcher [employer] EDPhu Olivas RN RN bcj Zecher, Calvin, RN RN cz Yajaira Pulido, Reg Reg gb Sixto Hayward, DO mm11 Rama Law RN RN ld5 Kori Mcclelland RN RN [facility] Radha Richards, Reg Reg [email or web address] The chart was reviewed and I authenticate all verbal orders and agree with the evaluation and treatment provided.Corrections: (The following items were deleted from the chart) 20:57 20:56 Labetalol 10 mg IVP at bolus once over 2 mins ordered. mm11 mm11 Attachments: 20:47 [facility] Payment Agreement [email or web address] 04/02 09:29 T-Sheet-- Draft Copy gb 15:25 ECG/EKG gb Chart Complete MTDD
--- NOTE | 2016-04-04 15:22 | EDDOCDS ---
Physician Documentation [facility] Name: Smitha Davis Age: 71 yrs Sex: Female : 1945 Arrival Date: 04/01/2016 Time: 19:36 Bed Admit Hold Private MD: NO PRIMARY PHYSICIAN, . Disposition: 04/01/16 22:06 Hospitalization ordered by Brian Do for Inpatient Admission. Preliminary diagnosis is Transient cerebral ischemic attack, unspecified. - Bed requested for PCU. - Status is Inpatient Admission. bcj - Condition is Stable. - Problem is an acute exacerbation. - Symptoms have improved. Historical: - Allergies: No known drug Allergies; - Home Meds: 1. Dilantin Oral 100 mg twice a day 2. Zocor 10 mg Oral tab once daily 3. Vitamin C Oral 4. Boniva 150 mg oral tab once a month 5. Detrol LA 4 mg Oral cp24 6. calcium carbonate 500 mg calcium (1,250 mg) Oral cap 7. Nystatin Topical - PMHx: Unable to obtain; - PSHx: Unable to obtain; - Social history: Smoking status: Patient states was never smoker of tobacco. No barriers to communication noted, The patient speaks fluent Cameroonian, Speaks appropriately for age. - Family history: Not pertinent. - : The pt / caregiver states he / she is not on anticoagulants. Home medication list is obtained from the facility APR. - Exposure Risk Screening:: None identified. Vital Signs: 04/01 19:38 BP 201 / 70; Pulse 59; Resp 18 S; Temp 96.1(O); Pulse Ox 100% on R/A; Weight 63.5 kg / gr2 139.99 lbs (R); Height 4 ft. 11 in. (149.86 cm) (R); Pain 5/10; 20:59 Pulse 86 MON; Pulse Ox 100% ; ld5 21:00 BP 195 / 69 (auto/); ld5 21:10 BP 188 / 79 (auto/); ld5 21:10 Pulse 60 MON; ld5 21:15 BP 172 / 79 (auto/); ld5 21:15 Pulse 60 MON; Pulse Ox 99% ; ld5 21:30 BP 154 / 70 (auto/); ld5 21:30 Pulse 71 MON; Pulse Ox 100% ; ld5 21:45 BP 164 / 74 (auto/); ld5 21:46 Pulse 78 MON; Pulse Ox 100% ; ld5 22:00 BP 138 / 65 (auto/); ld5 22:00 Pulse 75 MON; Pulse Ox 100% ; ld5 22:15 BP 126 / 58 (auto/); ld5 22:15 Pulse 70 MON; Pulse Ox 100% ; ld5 22:45 BP 133 / 62 (auto/); ld5 22:45 Pulse 71 MON; Resp 16; Temp 98; Pulse Ox 98% ; ld5 23:00 BP 137 / 63 (auto/); ld5 23:00 Pulse 70 MON; Pulse Ox 98% ; ld5 23:15 BP 152 / 71 (auto/); ld5 23:15 Pulse 72 MON; Pulse Ox 98% ; ld5 23:30 BP 148 / 69 (auto/); ld5 23:30 Pulse 74 MON; Pulse Ox 99% ; ld5 23:45 BP 149 / 69 (auto/); ld5 23:45 Pulse 71 MON; Pulse Ox 97% ; ld5 04/02 00:00 Pulse 68 MON; Pulse Ox 95% ; ld5 00:00 BP 117 / 58 (auto/); ld5 00:15 BP 112 / 54 (auto/); ld5 00:15 Pulse 67 MON; Pulse Ox 95% ; ld5 00:30 BP 135 / 63 (auto/); ld5 00:30 Pulse 69 MON; Pulse Ox 99% ; ld5 00:45 BP 143 / 65 (auto/); ld5 00:45 Pulse 68 MON; Pulse Ox 100% ; ld5 01:00 BP 131 / 57 (auto/); ld5 01:00 Pulse 65 MON; Pulse Ox 98% ; ld5 04/01 19:38 Body Mass Index 28.28 (63.50 kg, 149.86 cm) gr2 MDM: 04/01 20:13 RN interventions must not delay CT ordered. mm11 20:13 Airplane Rigger/Pulse Ox/q 15 min VS ordered. mm11 20:13 Accucheck ordered. mm11 20:13 IV Saline Lock ordered. mm11 20:13 Neuro VS q 15 Minutes ordered. mm11 20:13 Patient must be on CC stretcher and weighed via bed scale ordered. mm11 20:13 Rhythm Strip to chart ordered. mm11 20:14 Type & Screen Ordered. EDMS 20:14 CT Head Without Contrast Ordered. EDMS 20:15 Basic Metabolic Profile Ordered. EDMS 20:15 CBC with Diff Ordered. EDMS 20:15 Partial Thromboplastin Time Ordered. EDMS 20:15 Prothrombin Time Profile\E\INR Ordered. EDMS 20:17 Chest, 1 View Ordered. EDMS 20:17 ECG WITH READING ER PHYS+CARDIAG ordered. EDMS 20:25 Fingerstick Blood Sugar Ordered. EDMS 20:47 Financial registration complete. [email or web address] 20:47 [facility] Payment Agreement was scanned into [employer] and attached to record. [email or web address] 20:56 Basic Metabolic Profile Reviewed. mm11 20:56 CBC with Diff Reviewed. mm11 20:56 Partial Thromboplastin Time Reviewed. mm11 20:56 Prothrombin Time Profile\E\INR Reviewed. mm11 20:56 Type & Screen Reviewed. mm11 20:56 Fingerstick Blood Sugar Reviewed. mm11 20:57 hydrALAZINE 10 mg IV at bolus once ordered. mm11 20:58 UA Ordered. EDMS 20:58 Urine Culture Ordered. EDMS 21:36 UA Reviewed. mm11 21:36 CT Head Without Contrast Reviewed. mm11 21:52 BED REQUEST+ADM ordered. EDMS 22:33 NS 0.9% 1000 ml IV at 75 mL/hr continuous ordered. mm11 23:26 Admission / Observation Status ordered. EDMS 23:26 2 GRAM SODIUM DIET ordered. EDMS 23:27 PHENYTOIN Ordered. EDMS 23:27 COMPLETE BLOOD COUNT Ordered. EDMS 23:27 BASIC METABOLIC PROFILE Ordered. EDMS 23:27 MAGNESIUM LEVEL Ordered. EDMS 23:27 BLOOD CULTURES Ordered. EDMS 23:29 PHYSICAL THERAPY EVAL & TREAT ordered. EDMS 04/02 09:29 T-Sheet-- Draft Copy was scanned into [employer] and attached to record. gb 14:39 Other: HEALTHCARE PROXY was scanned into [employer] and attached to record. gb 15:25 ECG/EKG was scanned into [employer] and attached to record. gb Point of Care Testing: Blood Glucose: 04/01 20:15 Blood Glucose: 108 mg/dL; ld5 Ranges: Administered Medications: 20:57 CANCELLED (Other Intervention Used): Labetalol 10 mg IVP at bolus once over 2 mins mm11 21:17 Drug: hydrALAZINE 10 mg [hydralazine 20 mg/mL injection solution] Route: IV; Rate: ld5 bolus; Site: right antecubital; 22:45 Follow up: Response: Blood pressure is improved ld5 22:45 Drug: NS 0.9% 1000 ml [sodium chloride 0.9 % intravenous solution] Route: IV; Rate: 75 ld5 mL/hr; Site: right antecubital; Signatures: Dispatcher [employer] EDPhu Olivas RN RN bcj Zecher, Calvin, RN RN cz Yajaira Pulido, Reg Reg gb Sixto Hayward, DO mm11 Rama Law RN RN ld5 Kori Mcclelland RN RN [facility] Radha Richards, Reg Reg [email or web address] The chart was reviewed and I authenticate all verbal orders and agree with the evaluation and treatment provided.Corrections: (The following items were deleted from the chart) 20:57 20:56 Labetalol 10 mg IVP at bolus once over 2 mins ordered. mm11 mm11 Attachments: 20:47 [facility] [place] Payment Agreement [email or web address] 04/02 09:29 T-Sheet-- Draft Copy gb 15:25 ECG/EKG gb Chart Complete MTDD
--- NOTE | 2016-04-04 15:22 | EDDOCDS ---
Nurse's Notes [facility] Name: Smitha Davis Age: 71 yrs Sex: Female : 1945 Arrival Date: 04/01/2016 Time: 19:36 Bed Admit Hold Private MD: NO PRIMARY PHYSICIAN, . Diagnosis: Transient cerebral ischemic attack, unspecified Presentation: 04/01 19:46 Presenting complaint: double end sewer says that pt was eating dinner around 1730 and head cz slumped forward and speech became abnormal. pt complains of headache .speech is thick and not normal per double end sewer. The last date and time the patient was known to be well was was at 17:00 on April 01, 2016. Adult Sepsis Screening: Patient has new or worsening altered mentation (1 point). Patient's respiratory rate is less than 22. Systolic blood pressure is greater than 100. Patient has a qSOFA score of 1- Negative Sepsis Screen. Suicide/Homicide risk assessment- the patient denies having any suicidal and/or homicidal ideations and does not present with any other emotional, behavioral or mental health complaints. Status: Patient is not a service department manager or dependent. Transition of care: patient was not received from another setting of care. 19:46 Acuity: ZACHARIAH Level 2 cz 19:46 Method Of Arrival: Wheelchair cz 04/02 14:20 No acute neurological deficit is noted. Pre-hospital glucose is not applicable to this [facility] patient. Triage Assessment: 04/01 19:53 The onset of the patients symptoms was less than three hours ago. General: Appears cz uncomfortable. Pain: Location: face. Neurological: Level of Consciousness is awake, alert, Speech is slurred, Facial symmetry appears normal. Historical: - Allergies: No known drug Allergies; - Home Meds: 1. Dilantin Oral 100 mg twice a day 2. Zocor 10 mg Oral tab once daily 3. Vitamin C Oral 4. Boniva 150 mg oral tab once a month 5. Detrol LA 4 mg Oral cp24 6. calcium carbonate 500 mg calcium (1,250 mg) Oral cap 7. Nystatin Topical - PMHx: Unable to obtain; - PSHx: Unable to obtain; - Social history: Smoking status: Patient states was never smoker of tobacco. No barriers to communication noted, The patient speaks fluent Ukrainian, Speaks appropriately for age. - Family history: Not pertinent. - : The pt / caregiver states he / she is not on anticoagulants. Home medication list is obtained from the facility MAR. - Exposure Risk Screening:: None identified. Screenin:07 Screening information is obtained from the patient, residence staff, prior medical ld5 records. Fall risk: At risk due to apparent cognitive impairment. Assistance ADL's: Requires assistance with meal preparation, this assistance is provided by residence staff, bathing, assistance is provided by residence staff, dressing, assistance is provided by residence staff, toileting, assistance is provided by residence staff, ambulation, assistance is provided by Per staff, pt usually ambulatory with no assistance. medication administration, assistance is provided by residence staff. Abuse/DV Screen: The patient / caregiver reports he/she is: not in a situation that causes fear, pain or injury. home support is adequate. 04/02 14:18 Nutritional screening: No deficits noted. Advance Directives: There is no active DNR bcj order. Assessment: 04/01 20:03 General: Appears in no apparent distress, Behavior is cooperative. Pain: Location: head ld5 Quality of pain is described as "splitting". Neurological: Level of Consciousness is awake, obeys commands, Oriented to place, time, pt unable to fully state . Pt states January but is unable to finish. [facility] staff member states pt usually knows . Neurological: left foot weaker than right foot, strong sweeping compound blender to bilateral hands. Speech delayed. Facial droop on left. Respiratory: Airway is patent Respiratory effort is even, unlabored. GI: Reports nausea, Denies vomiting. Musculoskeletal: contracted left hand. [facility] staff reports pt had accident as a child so has had problems to left arm since. 20:50 General: Appears in no apparent distress, Behavior is cooperative. Pain: Location: head ld5 Pain currently is 4 out of 10 on a pain scale. Neurological: Level of Consciousness is awake, alert, Oriented to person, place, time. Respiratory: Airway is patent Respiratory effort is even, unlabored, Breath sounds are clear bilaterally. GI: Bowel sounds present X 4 quads. Abd is soft and non tender X 4 quads. 21:18 General: Pt assisted with bedpan. Tolerated well. Pt medicated per orders. Family ld5 member and [facility] staff at bedside. No new complaints at this time. Will continue to monitor. 21:35 General: Pt laying in bed with eyes closed. Arouses to voice. Will continue to monitor. ld5 21:50 General: Appears in no apparent distress. Respiratory: Airway is patent Respiratory ld5 effort is even, unlabored. Derm: Skin is intact. 22:24 General: Appears in no apparent distress. General: Pt resting comfortably in bed. Will ld5 continue to monitor. Respiratory: Airway is patent Respiratory effort is even, unlabored. 22:45 General: Pt states feeling "better". Headache minimal. Fluids started per orders. Spoke ld5 with pt, family member and [facility] staff about bed availability and the chance of staying in ER. All are understanding at this time. Will continue to monitor. 23:36 General: Appears in no apparent distress, Pt sleeping. Respirations easy and unlabored. ld5 Will continue to monitor. 04/02 00:19 General: Pt sleeping. No apparent distress. Fluids infusing. Will continue to monitor. ld5 00:48 General: Appears in no apparent distress, to be sleeping. Respiratory: Airway is patent ld5 Respiratory effort is even, unlabored. 01:03 General: Appears in no apparent distress. Respiratory: Airway is patent Respiratory ld5 effort is even, unlabored. Vital Signs: 04/01 19:38 BP 201 / 70; Pulse 59; Resp 18 S; Temp 96.1(O); Pulse Ox 100% on R/A; Weight 63.5 kg gr2 (R); Height 4 ft. 11 in. (149.86 cm) (R); Pain 5/10; 20:59 Pulse 86 MON; Pulse Ox 100% ; ld5 21:00 BP 195 / 69 (auto/); ld5 21:10 BP 188 / 79 (auto/); ld5 21:10 Pulse 60 MON; ld5 21:15 BP 172 / 79 (auto/); ld5 21:15 Pulse 60 MON; Pulse Ox 99% ; ld5 21:30 BP 154 / 70 (auto/); ld5 21:30 Pulse 71 MON; Pulse Ox 100% ; ld5 21:45 BP 164 / 74 (auto/); ld5 21:46 Pulse 78 MON; Pulse Ox 100% ; ld5 22:00 BP 138 / 65 (auto/); ld5 22:00 Pulse 75 MON; Pulse Ox 100% ; ld5 22:15 BP 126 / 58 (auto/); ld5 22:15 Pulse 70 MON; Pulse Ox 100% ; ld5 22:45 BP 133 / 62 (auto/); ld5 22:45 Pulse 71 MON; Resp 16; Temp 98; Pulse Ox 98% ; ld5 23:00 BP 137 / 63 (auto/); ld5 23:00 Pulse 70 MON; Pulse Ox 98% ; ld5 23:15 BP 152 / 71 (auto/); ld5 23:15 Pulse 72 MON; Pulse Ox 98% ; ld5 23:30 BP 148 / 69 (auto/); ld5 23:30 Pulse 74 MON; Pulse Ox 99% ; ld5 23:45 BP 149 / 69 (auto/); ld5 23:45 Pulse 71 MON; Pulse Ox 97% ; ld5 02 00:00 Pulse 68 MON; Pulse Ox 95% ; ld5 00:00 BP 117 / 58 (auto/); ld5 00:15 BP 112 / 54 (auto/); ld5 00:15 Pulse 67 MON; Pulse Ox 95% ; ld5 00:30 BP 135 / 63 (auto/); ld5 00:30 Pulse 69 MON; Pulse Ox 99% ; ld5 00:45 BP 143 / 65 (auto/); ld5 00:45 Pulse 68 MON; Pulse Ox 100% ; ld5 01:00 BP 131 / 57 (auto/); ld5 01:00 Pulse 65 MON; Pulse Ox 98% ; ld5 04/01 19:38 Body Mass Index 28.28 (63.50 kg, 149.86 cm) gr2 Vitals: 04/01 19:38 Log In Time: April 01, 2016 at 19:38. RN notified that patient meets Red Flag gr2 criteria. 04/02 14:21 Glucose Measurement D-stick deferred by provider. [facility] ED Course: 04/01 19:38 Patient visited by Ras Chirinos. gr2 19:38 NO PRIMARY PHYSICIAN, . is Private Physician. gr2 19:38 Patient moved to Waiting gr2 19:41 Patient moved to 1 cz 19:42 Sixto Hayward DO is Attending Physician. mm11 19:42 Patient visited by Sixto Hayward DO. mm11 19:42 Patient visited by Ras Chirinos. gr2 19:49 Triage Initiated cz 20:08 Patient visited by Rama Law,ASHLYN. ld5 20:08 Inserted saline lock: 18 gauge in right antecubital area and blood collected. The ld5 patient tolerated the procedure well. Labs drawn. (by ED staff). Sent per order to lab. 20:12 Patient visited by Sixto Hayward DO. mm11 20:14 Type & Screen Sent. ld5 20:18 Basic Metabolic Profile Sent. ld5 20:18 CBC with Diff Sent. ld5 20:19 Patient visited by Rama Law RN. ld5 20:19 Partial Thromboplastin Time Sent. ld5 20:19 Prothrombin Time Profile\\E\\INR Sent. ld5 20:20 Patient visited by Eliza Butt PCA. cln 20:20 EKG done. (by ED staff). Reviewed by Sixto Hayward DO. cln 20:47 [facility] Payment Agreement was scanned into [email or web address] and attached to record. ks16 21:12 CT Head Without Contrast Returned. EDMS 21:16 Urine Culture Sent. ld5 21:16 UA Sent. ld5 21:19 Patient visited by Rama Law RN. ld5 21:36 Patient visited by Rama Law,ASHLYN. ld5 22:06 Brian Do is Hospitalizing Provider. mm11 22:11 Patient visited by Rama Law RN. ld5 22:25 Patient visited by Rama Law,ASHLYN. ld5 22:47 Patient visited by Rama Law,ASHLYN. ld5 23:37 Patient visited by Rama Law RN. ld5 23:43 Patient moved to Admit Hold feb 22 00:20 Patient visited by Rama Law,ASHLYN. ld5 01:04 Patient visited by Rama Law,ASHLYN. ld5 01:16 Nighat Leonardo,RN is Primary Nurse. feb 01:16 Patient moved to 17 feb 03:19 Patient moved to Admit Hold feb 07:45 Primary Nurse role handed off by Nighat Leonardo,RN kr3 08:47 Chest, 1 View Returned. EDMS 09:29 T-Sheet-- Draft Copy was scanned into [email or web address] and attached to record. gb 14:18 No apparent distress. Resting quietly. bcj 14:18 The patient / caregiver is instructed regarding the plan of care and ED course. bcj 14:18 No procedures done that require assistance. bcj 14:21 Patient visited by Phu Blair RN. bcj 14:39 Other: HEALTHCARE PROXY was scanned into [employer] and attached to record. gb 15:25 ECG/EKG was scanned into [employer] and attached to record. gb Administered Medications: 04/01 20:57 CANCELLED (Other Intervention Used): Labetalol 10 mg IVP at bolus once over 2 mins mm11 21:17 Drug: hydrALAZINE 10 mg [hydralazine 20 mg/mL injection solution] Route: IV; Rate: ld5 bolus; Site: right antecubital; 22:45 Follow up: Response: Blood pressure is improved ld5 22:45 Drug: NS 0.9% 1000 ml [sodium chloride 0.9 % intravenous solution] Route: IV; Rate: 75 ld5 mL/hr; Site: right antecubital; Point of Care Testing: Blood Glucose: 20:15 Blood Glucose: 108 mg/dL; ld5 Ranges: Output: 04/02 01:24 Urine: 525.00ml (Voided); Total: 525.00ml. ld5 Order Results: Lab Order: Basic Metabolic Profile; SPEC'M 04/01/16 19:57 Test: GLUCOSE, FASTING; Value: 106; Range: 83-110; Units: MG/DL; Status: F Test: BLOOD UREA NITROGEN; Value: 11; Range: 7-18; Units: MG/DL; Status: F Test: CREATININE FOR GFR; Value: 0.69; Range: 0.55-1.02; Units: MG/DL; Status: F Test: GLOMERULAR FILTRATION RATE; Value: > 60.0; Range: >39; Status: F Test: SODIUM LEVEL; Value: 137; Range: 136-145; Units: MEQ/L; Status: F Test: POTASSIUM SERUM; Value: 3.8; Range: 3.5-5.1; Units: MEQ/L; Status: F Test: CHLORIDE LEVEL; Value: 97; Range: 98-107; Abnormal: Below low normal; Units: MEQ/L; Status: F Test: CARBON DIOXIDE LEVEL; Value: 33; Range: 21-32; Abnormal: Above high normal; Units: MEQ/L; Status: F Test: ANION GAP; Value: 7; Range: 8-16; Abnormal: Below low normal; Units: MEQ/L; Status: F Test: CALCIUM LEVEL; Value: 9.2; Range: 8.8-10.2; Units: MG/DL; Status: F Test Note: ; Units are mL/min/1.73 m2 Chronic Kidney Disease Staging per NKF: Stage I & II GFR >=60 Normal to Mildly Decreased Stage III GFR 30-59 Moderately Decreased Stage IV GFR 15-29 Severely Decreased Stage V GFR <15 Very Little GFR Left ESRD GFR <15 on ASSISTANT KITCHEN MANAGER Lab Order: CBC with Diff; SPEC'M 04/01/16 19:57 Test: WHITE BLOOD COUNT; Value: 15.3; Range: 4.0-10.0; Abnormal: Above high normal; Units: K/mm3; Status: F Test: RED BLOOD COUNT; Value: 4.33; Range: 4.00-5.40; Units: M/mm3; Status: F Test: HEMOGLOBIN; Value: 13.3; Range: 12.0-16.0; Units: g/dl; Status: F Test: HEMATOCRIT; Value: 40.1; Range: 36.0-47.0; Units: %; Status: F Test: MEAN CORPUSCULAR VOLUME; Value: 92.6; Range: 80.0-96.0; Units: fl; Status: F Test: MEAN CORPUSCULAR HEMOGLOBIN; Value: 30.8; Range: 27.0-33.0; Units: pg; Status: F Test: MEAN CORPUSCULAR HGB CONC; Value: 33.2; Range: 32.0-36.5; Units: g/dl; Status: F Test: RED CELL DISTRIBUTION WIDTH; Value: 12.3; Range: 11.5-14.5; Units: %; Status: F Test: PLATELET COUNT, AUTOMATED; Value: 242; Range: 150-450; Units: k/mm3; Status: F Test: NEUTROPHILS %; Value: 30.7; Range: 36.0-66.0; Abnormal: Below low normal; Units: %; Status: F Test: LYMPH %; Value: 60.8; Range: 24.0-44.0; Abnormal: Above high normal; Units: %; Status: F Test: MONO %; Value: 4.5; Range: 0.0-5.0; Units: %; Status: F Test: EOS %; Value: 1.3; Range: 0.0-3.0; Units: %; Status: F Test: BASO %; Value: 0.4; Range: 0.0-1.0; Units: %; Status: F Test: LARGE UNSTAINED CELL %; Value: 2.3; Range: 0.0-4.0; Units: %; Status: F Test: NEUTROPHILS #; Value: 4.7; Range: 1.8-7.7; Units: K/mm3; Status: F Test: LYMPH #; Value: 9.6; Range: 1.5-4.5; Abnormal: Above high normal; Units: K/mm3; Status: F Test: MONO #; Value: 0.7; Range: 0.0-0.8; Units: K/mm3; Status: F Test: EOS #; Value: 0.2; Range: 0.0-0.50; Units: K/mm3; Status: F Test: BASO #; Value: 0.1; Range: 0.0-0.2; Units: K/mm3; Status: F Test: LARGE UNSTAINED CELL #; Value: 0.4; Range: 0.0-0.4; Units: K/mm3; Status: F Test Note: ; A Pathologist review of this differential can help in the evaluation of a differential diagnosis. Please order a Pathologist Review (PATHREVCOMP) if deemed necessary. Results are subject to change if a Pathologist Review is performed. Lab Order: Partial Thromboplastin Time; SPEC'M 04/01/16 19:57 Test: PARTIAL THROMBOPLASTIN TIME; Value: 28.4; Range: 26.6-37.1; Units: SECONDS; Status: F Lab Order: Prothrombin Time Profile\\E\\INR; SPEC'M 04/01/16 19:57 Test: PROTHROMBIN TIME; Value: 12.8; Range: 12.3-14.5; Units: SECONDS; Status: F Test: INR; Value: 0.95; Status: F Test Note: ; THERAPUTIC HUMAN INR VALUES INDICATIONS NORMAL RANGES PROPHYLAXIS/TREATMENT OF: VENOUS THROMBOSIS 2.0-3.0 PULMONARY EMBOLISM 2.0-3.0 PREVENTION OF SYSTEMIC EMBOLISM FROM: TISSUE HEART VALVES 2.0-3.0 ACUTE MYOCARDIAL INFARCTION 2.0-3.0 VALVULAR HEART DISEASE 2.0-3.0 ATRIAL FIBRILLATION 2.0-3.0 MECHANICAL VALVES(HIGH RISK) 2.5-3.5 RECURRENT MYOCARDIAL INFARCTION 2.5-3.5 Lab Order: Type & Screen; [facility] 04/01/16 19:57 Test: BLOOD TYPE; Value: A NEG; Status: F Test: AB SCREEN (INDIRECT CARMENCITA)VIS; Value: NEGATIVE; Status: F Lab Order: Fingerstick Blood Sugar; [facility] 04/01/16 20:17 Test: BEDSIDE GLUCOSE; Value: 108; Range: 83-110; Units: MG/DL; Status: F Lab Order: UA; [facility] 04/01/16 21:14 Test: APPEARANCE, URINE; Value: CLEAR; Range: CLEAR; Status: F Test: COLOR, URINE; Value: COLORLESS; Range: YELLOW; Status: F Test: PH,URINE; Value: 8.0; Range: 5.0-9.0; Units: UNITS; Status: F Test: SPECIFIC GRAVITY URINE AUTO; Value: 1.002; Range: 1.002-1.035; Status: F Test: PROTEIN, URINE AUTO; Value: NEGATIVE; Range: NEGATIVE; Units: mg/dL; Status: F Test: GLUCOSE, URINE (UA) AUTO; Value: NEGATIVE; Range: NEGATIVE; Units: mg/dL; Status: F Test: KETONE, URINE AUTO; Value: NEGATIVE; Range: NEGATIVE; Units: mg/dL; Status: F Test: UROBILINOGEN, URINE AUTO; Value: 0.2; Range: 0.0-2.0; Units: mg/dL; Status: F Test: BILIRUBIN, URINE AUTO; Value: NEGATIVE; Range: NEGATIVE; Status: F Test: NITRITE, URINE AUTO; Value: NEGATIVE; Range: NEGATIVE; Status: F Test: LEUKOCYTE ESTERASE, URINE AUTO; Value: NEGATIVE; Range: NEGATIVE; Status: F Test: BLOOD, URINE BLOOD; Value: NEGATIVE; Range: NEGATIVE; Status: F Test: WBC, URINE AUTO; Value: 1; Range: 0-3; Units: /HPF; Status: F Test: RBC, URINE AUTO; Value: 1; Range: 0-3; Units: /HPF; Status: F Test: BACTERIA, URINE AUTO; Value: NEGATIVE; Range: NEGATIVE; Status: F Test: SQUAMOUS EPITHELIAL CELL UR AU; Value: 0; Range: 0-6; Units: /HPF; Status: F Test: HYALINE CAST, URINE AUTO; Value: 0; Range: 0-1; Units: /LPF; Status: F Lab Order: PHENYTOIN; [facility] 04/02/16 07:02 Test: PHENYTOIN (DILANTIN); Value: 19.3; Range: 10.0-20.0; Units: UG/ML; Status: F Lab Order: COMPLETE BLOOD COUNT; [facility] 04/02/16 07:02 Test: WHITE BLOOD COUNT; Value: 10.2; Range: 4.0-10.0; Abnormal: Above high normal; Units: K/mm3; Status: F Test: RED BLOOD COUNT; Value: 4.26; Range: 4.00-5.40; Units: M/mm3; Status: F Test: HEMOGLOBIN; Value: 13.2; Range: 12.0-16.0; Units: g/dl; Status: F Test: HEMATOCRIT; Value: 39.0; Range: 36.0-47.0; Units: %; Status: F Test: MEAN CORPUSCULAR VOLUME; Value: 91.5; Range: 80.0-96.0; Units: fl; Status: F Test: MEAN CORPUSCULAR HEMOGLOBIN; Value: 31.0; Range: 27.0-33.0; Units: pg; Status: F Test: MEAN CORPUSCULAR HGB CONC; Value: 33.8; Range: 32.0-36.5; Units: g/dl; Status: F Test: RED CELL DISTRIBUTION WIDTH; Value: 12.5; Range: 11.5-14.5; Units: %; Status: F Test: PLATELET COUNT, AUTOMATED; Value: 198; Range: 150-450; Units: k/mm3; Status: F Lab Order: BASIC METABOLIC PROFILE; [facility] 04/02/16 07:02 Test: GLUCOSE, FASTING; Value: 106; Range: 83-110; Units: MG/DL; Status: F Test: BLOOD UREA NITROGEN; Value: 9; Range: 7-18; Units: MG/DL; Status: F Test: CREATININE FOR GFR; Value: 0.50; Range: 0.55-1.02; Abnormal: Below low normal; Units: MG/DL; Status: F Test: GLOMERULAR FILTRATION RATE; Value: > 60.0; Range: >39; Status: F Test: SODIUM LEVEL; Value: 141; Range: 136-145; Units: MEQ/L; Status: F Test: POTASSIUM SERUM; Value: 3.9; Range: 3.5-5.1; Units: MEQ/L; Status: F Test: CHLORIDE LEVEL; Value: 107; Range: 98-107; Units: MEQ/L; Status: F Test: CARBON DIOXIDE LEVEL; Value: 25; Range: 21-32; Units: MEQ/L; Status: F Test: ANION GAP; Value: 9; Range: 8-16; Units: MEQ/L; Status: F Test: CALCIUM LEVEL; Value: 8.5; Range: 8.8-10.2; Abnormal: Below low normal; Units: MG/DL; Status: F Test Note: ; Units are mL/min/1.73 m2 Chronic Kidney Disease Staging per NKF: Stage I & II GFR >=60 Normal to Mildly Decreased Stage III GFR 30-59 Moderately Decreased Stage IV GFR 15-29 Severely Decreased Stage V GFR <15 Very Little GFR Left ESRD GFR <15 on ASSISTANT KITCHEN MANAGER Lab Order: MAGNESIUM LEVEL; EDUARD'M 04/02/16 07:02 Test: MAGNESIUM LEVEL; Value: 2.0; Range: 1.8-2.4; Units: MG/DL; Status: F Radiology Order: CT Head Without Contrast Test: CT Head Without Contrast REASON FOR EXAMINATION: CVA <4.5hrs; ; CT of the head; Clinical history: CVA.; Technique: Multiple axial CT images were obtained through the head without administration of contrast; .; Findings: Post-surgical changes in the right frontal region causes extreme metallic artifact, limitin; g evaluation of this region. The visualized ventricles and sulci are symmetric bilaterally. Encephalo; malacia the right temporal lobe is noted. There is no evidence of acute hemorrhage or infarct. There; is no midline shift, mass effect, or extra-axial fluid collection. The osseous structures are unremar; kable. The visualized paranasal sinuses and mastoid air cells are clear.; Impression: No acute abnormality on this highly limited study. The right frontal lobe is completely o; bscured. Chronic surgical changes in the right frontal region with encephalomalacia the right tempora; l lobe is appreciated.; ; Radiology Order: Chest, 1 View Test: Chest, 1 View REASON FOR EXAMINATION: CVA <4.5hrs; Portable chest, 08:26 p.m., single AP view, the patient semi upright:; ; Comparison is 2014.; ; The lung estrada are clear. The cardiac size is normal; ; The jesus, mediastinum, and bony thorax are unremarkable.; ; Impression:; ; Negative portable chest.; ; ; Signed by; Agustín Moreland MD 04/02/2016 08:14 A; Outcome: 04/01 22:06 Decision to Hospitalize by Provider. mm11 04/02 14:18 Discharge Assessment: patient administered narcotics - no. The following High Risk [facility] Discharge criteria are identified: None. Admitted to PCU accompanied by nurse, accompanied by tech, via stretcher, on monitor. Condition: stable. No special radiology studies were completed. Property :Personal belongings accompany Pt. 14:21 Patient left the ED. [facility] Signatures: Dispatcher [employer] EDPhu Olivas RN RN bcj Newman, Alondra Vargas RN Josef Wick, Yajaira Hunter RN, Reg Reg gb Rachael Elizabeth RN RN kr3 Maynard, Matthew, DO DO mm11 Rama Law RN RN ld5 Raymond, Gainslee gr2 Radha Richards, Reg Reg ks16 Daquan, Eliza, VALET PARKER VALET PARKER cln Chart Complete MTDD
== END 2016-04-03 14:10 | disposition home or self-care (01) ==
LOC: M ED 19:36 → M ED INP 23:19 → M PCU 04-02 13:44
PROVIDERS: ADMIT Internal Medicine; ATTEND Internal Medicine
DX: I67.4 Hypertensive encephalopathy (principal); Z87.820 Personal history of traumatic brain injury; R56.9 Unspecified convulsions; I10 Essential (primary) hypertension; M81.0 Age-related osteoporosis without current pathological fracture; E78.4 Other hyperlipidemia; Z79.899 Other long term (current) drug therapy; K21.9 Gastro-esophageal reflux disease without esophagitis
CPT/HCPCS: 36415; 70450; 71010; 80048; 80185; 81001; 83735; 85025; 85027; 85610; 85730; 86850; 86900; 86901; 87040; 87086; 93005; 93041; 96372; 96374; 97161; 99285; G0378

== ENCOUNTER → 2016-06-07 | Outpatient (CLI) | payer MEDICARE, MEDICAID ==
[~2016-06-07] MED LIST changes: +ASCO500T PO; -COLA100C PO; +COLA100C3 PO; +FLUT0.003 EXT; -SERT-141 PO; +SERT50TA PO; +STEL45IN SC; +VITMTA PO
[2016-06-07 12:20] LABS: ALBUMIN 3.5 GM/DL (3.2-5.2); ALBUMIN/GLOBULIN RATIO 1.21 (1.00-1.93); ALKALINE PHOSPHATASE 125 U/L (45-117); ALT/SGPT 48 U/L (12-78); ANION GAP 5 MEQ/L (8-16); AST/SGOT 28 U/L (15-37); BILIRUBIN,TOTAL 0.3 MG/DL (0.2-1.0); BLOOD UREA NITROGEN 12 MG/DL (7-18); CALCIUM LEVEL 8.9 MG/DL (8.8-10.2); CARBON DIOXIDE LEVEL 34 MEQ/L (21-32); CHLORIDE LEVEL 101 MEQ/L (98-107); CHOLESTEROL LEVEL 191 MG/DL (<200); CREATININE FOR GFR 0.63 MG/DL (0.55-1.02); GLOMERULAR FILTRATION RATE > 60.0 (>39); GLUCOSE, FASTING 103 MG/DL (83-110); POTASSIUM SERUM 4.3 MEQ/L (3.5-5.1); SODIUM LEVEL 140 MEQ/L (136-145); TOTAL PROTEIN 6.4 GM/DL (6.4-8.2); TRIGLYCERIDES LEVEL 63 MG/DL (<150)
== END ==
LOC: M LRY 07:59
PROVIDERS: ATTEND Family Medicine
DX: E78.4 Other hyperlipidemia (principal)

== ENCOUNTER → 2016-06-24 | Outpatient (CLI) | payer MEDICARE, MEDICAID | LOC: M LRY 08:06 | PROVIDERS: ATTEND Physician Assistant Medical | DX: R56.9 Unspecified convulsions (principal) ==

== ENCOUNTER → 2016-10-14 | Outpatient (CLI) | payer MEDICARE, MEDICAID ==
[~2016-10-14] MED LIST changes: +ANTA1CHW4 PO; -COLA100C3 PO; +COLA100C5 PO; +DETR4CAP PO; -DETR4CAP10 PO; +KEFL500C17 PO; -KEFL500C7 PO; -NYST100024 TOP; +NYST1POW9 TOP; +PERC5TAB12 PO; -PERC5TAB6 PO; -SENO8.6T2 PO; +SENO8.6T5 PO; -[UNRECOGNIZED DRUG - CODE] PO
--- NOTE | 2016-10-14 13:44 | REPMRS ---
Patient History The patient states she had a clinical breast exam in 10/07 No known family history of cancer. Digital Woman Screen Mammo: October 14, 2016 - Exam #: [id number] Bilateral CC and MLO view(s) were taken. Technologist: Shaylee Hernandez, Technologist Prior study comparison: October 14, 2015, digital woman screen mammo performed at [facility]. October 10, 2014, digital woman screen mammo performed at [facility]. FINDINGS: There are scattered fibroglandular densities. There has been no change in the appearance of the mammogram from the prior studies. There is a mild amount of residual fibroglandular tissue which is fairly symmetric. There is no interval development of dominant mass, architectural distortion, or clustered microcalcification suggestive of malignancy. ASSESSMENT: BI-RADS/ACR category 1 mammogram. Negative. Recommendation Routine screening mammogram in 1 year (for women over age 40). This mammogram was interpreted with the aid of an FDA-approved computer-aided dectection system. Electronically Signed By: Agustín Enrique MD 10/14/16 [id number]
== END ==
LOC: M WHC 11:05
PROVIDERS: ATTEND Nurse Practitioner Family
DX: Z12.31 Encounter for screening mammogram for malignant neoplasm of breast (principal); Z12.4 Encounter for screening for malignant neoplasm of cervix; Z12.11 Encounter for screening for malignant neoplasm of colon
CPT/HCPCS: 82270; G0101; G0202

== ENCOUNTER → 2016-11-09 | Outpatient (CLI) | payer MEDICARE, MEDICAID ==
[~2016-11-09] MED LIST changes: +E-Z-PAQUE 96% w/w SUSP 176GM BTL As Ordered ONE; +VARIBAR NECTAR 40% w/v 240ML SUSP BTL As Ordered ONE; +VARIBAR PUDDING 40% w/v 230ML TUBE As Ordered ONE
--- NOTE | 2016-11-09 13:44 | REP ---
Modified barium swallow: Procedures performed by the speech pathologist, Neha sim. Comparison is 10/13/2011. The patient reportedly sprays is episodes of coughing while eating. The patient is fed substances of various consistencies from thin liquid to pudding to solid food. Deglutition ensues uneventfully with ingestion of all of these various consistencies. There is no laryngeal penetration or aspiration with any of the substances. A detailed report of this exam only provided by speech pathology. Fluoroscopic exposure time is 1 minute 13 seconds. Fluoroscopic imaging is performed with videotaping and requires no additional radiation. Signed by Agustín Moreland MD 11/09/2016 01:35 P
== END ==
LOC: M RAD 12:13
PROVIDERS: ATTEND Family Medicine
DX: K21.0 Gastro-esophageal reflux disease with esophagitis (principal)
CPT/HCPCS: 74230; 92611; G8996; G8997; G8998

== ENCOUNTER → 2016-11-19 | Outpatient (CLI) | payer MEDICARE, MEDICAID ==
[~2016-11-19] MED LIST changes: -E-Z-PAQUE 96% w/w SUSP 176GM BTL As Ordered ONE; -VARIBAR NECTAR 40% w/v 240ML SUSP BTL As Ordered ONE; -VARIBAR PUDDING 40% w/v 230ML TUBE As Ordered ONE
--- NOTE | 2016-11-22 09:28 | DEXA ---
AP SPINE L1 - L4 1.120 -0.6 1.1 LT FEMUR TOTAL Not done, hip pins. RT FEMUR TOTAL 0.761 -2.0 -0.5 TOTAL BODY TOTAL OTHER DUAL FEMUR FRAX* ASSESSMENT Risk factors: Not done. 10 year probability of fracture Major osteoporotic fracture % Hip fracture % COMMENTS: Normal bone densitometry of the spine. There is osteoporosis of the right hip. The increased density of the spine does represent a significant change. The decreased density of the right hip does represent a significant change. The density of the spine has increased 21.2% since the initial exam on 2008. The spine density has increased 10.1% since the most recent exam on 11/18/2014. The density of the right hip has increased 2.0% since the initial exam on 2008. The density of the right hip has decreased 2.7% since the most recent exam on . FOLLOW-UP: Recommendation for the next bone density exam: 2 years. ERMA
== END ==
LOC: M WHC 09:55
PROVIDERS: ATTEND Nurse Practitioner Family
DX: M81.0 Age-related osteoporosis without current pathological fracture (principal)

== ENCOUNTER 2016-11-28 13:52 | Emergency (ER) | payer MEDICARE, MEDICAID ==
[~2016-11-28] VITALS: Ht 149.9 cm; Wt 61.8 kg
[2016-11-28 18:00] VITALS: BP 153/87
--- NOTE | 2016-11-29 08:08 | REP ---
REASON: Trauma. COMPARISON: 10/28/2016 There is marked spray artifact from a calvarial implant from previous brain surgery to such a significant degree the exam is nondiagnostic. There does not appear to be a gross change from the prior exam, however, an acute intracranial hemorrhage cannot be rule out. IMPRESSION: Nondiagnostic exam as described above. Signed by Spencer Sweeney DO 11/29/2016 12:11 P
--- NOTE | 2016-11-29 08:10 | REP ---
REASON: Pain in the neck. COMPARISON: 01/24/2014 Vertebral body height and alignment is unchanged. The disc spaces are unchanged. The facet joints are well aligned bilaterally and unchanged. Degenerative facet and uncovertebral joint changes are present at every level bilaterally status quo to slightly increased. There is anterior lipping status quo to slightly increased. There is no evidence of an acute fracture. IMPRESSION: Chronic changes as described above. Signed by Spencer Sweeney DO 11/29/2016 12:11 P
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
== END 2016-11-28 18:01 | disposition home or self-care (01) ==
LOC: M ED 13:52
DX: S09.90XA Unspecified injury of head, initial encounter (principal); S86.812A Strain of other muscle(s) and tendon(s) at lower leg level, left leg, initial encounter; V48.4XXA Person boarding or alighting a car injured in noncollision transport accident, initial encounter; Y92.410 Unspecified street and highway as the place of occurrence of the external cause; Y93.89 Activity, other specified; Y99.9 Unspecified external cause status

== ENCOUNTER → 2017-01-04 | Outpatient (CLI) | payer MEDICARE, MEDICAID ==
--- NOTE | 2017-01-04 11:12 | REP ---
LUMBAR SPINE, FIVE VIEWS: HISTORY: Back pain. There is no acute fracture or subluxation. The L3-4 through L5-S1 intervertebral discs are decreased in height consistent with disc degeneration. Osteophytes are present on L2-5. There is narrowing of the right L3-4 through L5-S1 and left L5-S1 facet joints. IMPRESSION: Degenerative change as described above. Signed by Ilan Aguirre MD 01/04/2017 11:22 A
--- NOTE | 2017-01-04 12:04 | REP ---
LEFT KNEE, FIVE VIEWS: HISTORY: Pain. There is no acute fracture or dislocation. There is narrowing of the medial knee joint space. IMPRESSION: Degenerative change as described above. Signed by Ilan Aguirre MD 01/04/2017 12:07 P
== END ==
LOC: M RAD 09:03
PROVIDERS: ATTEND Physician Assistant Medical
DX: M17.12 Unilateral primary osteoarthritis, left knee (principal); M51.36 Other intervertebral disc degeneration, lumbar region; M51.37 Other intervertebral disc degeneration, lumbosacral region; M54.5 Low back pain; L40.0 Psoriasis vulgaris; Z51.81 Encounter for therapeutic drug level monitoring; Z79.899 Other long term (current) drug therapy

== ENCOUNTER → 2017-01-04 | Outpatient (CLI) | payer MEDICARE, MEDICAID ==
[2017-01-04 09:38] LABS: MEAN CORPUSCULAR HGB CONC 33.2 g/dl (32.0-36.5); MEAN CORPUSCULAR VOLUME 93.4 fl (80.0-96.0); PLATELET COUNT, AUTOMATED 256 10^3/uL (150-450); RED CELL DISTRIBUTION WIDTH 12.8 % (11.5-14.5)
[2017-01-04 09:43] LABS: ADD MANUAL DIFFER YES; BLASTS POS FLAG; DIFF SLIDE NUMBER 168; POSITIVE DIFF POS FLAG; POSITIVE MORPH POS FLAG; WHITE BLOOD COUNT 14.1 10^3/uL (4.0-10.0)
[2017-01-04 10:07] LABS: BANDS 1 % (< 11); EOSINOPHILS 1 % (0-5)
[2017-01-04 10:08] LABS: ANISOCYTOSIS 1+
[2017-01-04 10:11] LABS: ALBUMIN 3.3 GM/DL (3.2-5.2); ALKALINE PHOSPHATASE 135 U/L (45-117); ALT/SGPT 48 U/L (12-78); ANION GAP 4 MEQ/L (8-16); AST/SGOT 27 U/L (7-37); BILIRUBIN,DIRECT 0.1 MG/DL (0.0-0.2); BILIRUBIN,TOTAL 0.3 MG/DL (0.2-1.0); BLOOD UREA NITROGEN 8 MG/DL (7-18); CALCIUM LEVEL 9.1 MG/DL (8.8-10.2); CARBON DIOXIDE LEVEL 33 MEQ/L (21-32); CHLORIDE LEVEL 99 MEQ/L (98-107); GLOMERULAR FILTRATION RATE > 60.0 (>39); GLUCOSE, FASTING 88 MG/DL (83-110); PHOSPHORUS LEVEL 3.2 MG/DL (2.5-4.9); POTASSIUM SERUM 4.1 MEQ/L (3.5-5.1); SODIUM LEVEL 136 MEQ/L (136-145); TOTAL PROTEIN 6.3 GM/DL (6.4-8.2)
== END ==
LOC: M LAB 08:56
PROVIDERS: ATTEND Nurse Practitioner Family
DX: L40.0 Psoriasis vulgaris (principal); Z51.81 Encounter for therapeutic drug level monitoring; Z79.899 Other long term (current) drug therapy

== ENCOUNTER 2017-01-11 11:16 | Emergency (ER) | payer OTHER, MEDICARE, MEDICAID ==
[2017-01-11 14:00] LABS: MEAN CORPUSCULAR HEMOGLOBIN 30.7 pg (27.0-33.0); MEAN CORPUSCULAR HGB CONC 33.5 g/dl (32.0-36.5); MEAN CORPUSCULAR VOLUME 91.7 fl (80.0-96.0); PLATELET COUNT, AUTOMATED 259 10^3/uL (150-450); RED CELL DISTRIBUTION WIDTH 12.9 % (11.5-14.5)
[2017-01-11 14:01] LABS: ADD MANUAL DIFFER YES; BLASTS POS FLAG; POSITIVE DIFF POS FLAG; POSITIVE MORPH POS FLAG; WHITE BLOOD COUNT 15.3 10^3/uL (4.0-10.0)
[2017-01-11 14:02] LABS: DIFF SLIDE NUMBER 258
[2017-01-11 14:19] LABS: EOSINOPHILS 1 % (0-5)
[2017-01-11 14:23] LABS: ANION GAP 5 MEQ/L (8-16); BLOOD UREA NITROGEN 8 MG/DL (7-18); CALCIUM LEVEL 9.1 MG/DL (8.8-10.2); CARBON DIOXIDE LEVEL 31 MEQ/L (21-32); CHLORIDE LEVEL 99 MEQ/L (98-107); CREATININE FOR GFR 0.51 MG/DL (0.55-1.02); GLOMERULAR FILTRATION RATE > 60.0 (>39); GLUCOSE, FASTING 89 MG/DL (83-110); POTASSIUM SERUM 4.1 MEQ/L (3.5-5.1); SODIUM LEVEL 135 MEQ/L (136-145)
[2017-01-11] MEDS ORDERED: ISOVUE-370 76% 100ML VIAL (Q9967) As Ordered ONE (14:29)
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
--- NOTE | 2017-01-11 15:13 | REP ---
CT CERVICAL SPINE: CT cervical spine performed in the axial plane with sagittal and coronal reconstruction images. There is no compression fracture or malalignment. There is no prevertebral soft tissue swelling. There is normal cervical lordosis. There is mild spurring of C6 and C7. Disc spaces are relatively well preserved. No hematoma is seen in the spinal canal. IMPRESSION: Mild degenerative changes. No fracture/dislocation. Signed by Agustín Enrique MD 01/11/2017 05:07 P
[2017-01-11 15:40] VITALS: BP 134/70
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
== END 2017-01-11 13:48 | disposition home or self-care (01) ==
LOC: EDBD 11:16 → M ED 11:16
DX: M25.511 Pain in right shoulder (principal); V49.59XA Passenger injured in collision with other motor vehicles in traffic accident, initial encounter; Y92.410 Unspecified street and highway as the place of occurrence of the external cause; Y93.89 Activity, other specified; Y99.8 Other external cause status; Z79.82 Long term (current) use of aspirin
CPT/HCPCS: 36415; 70450; 71260; 72125; 80048; 85025; 99284; Q9967

== ENCOUNTER 2017-05-03 07:57 | Inpatient (IN) | payer MEDICARE, MEDICAID, OTHER ==
[2017-05-03] MEDS: SODIUM CHLORIDE 0.9% 1000 ML IV (10:33)
[2017-05-03 11:19] LABS: HEMATOCRIT 38.9 % (36.0-47.0); MEAN CORPUSCULAR HEMOGLOBIN 30.2 pg (27.0-33.0); MEAN CORPUSCULAR HGB CONC 33.4 g/dl (32.0-36.5); MEAN CORPUSCULAR VOLUME 90.3 fl (80.0-96.0); PLATELET COUNT, AUTOMATED 243 10^3/uL (150-450); RED BLOOD COUNT 4.31 10^6/uL (4.00-5.40); RED CELL DISTRIBUTION WIDTH 12.3 % (11.5-14.5)
[2017-05-03 11:20] LABS: POSITIVE DIFF POS FLAG; POSITIVE MORPH POS FLAG; WHITE BLOOD COUNT 14.5 10^3/uL (4.0-10.0)
[2017-05-03 11:25] LABS: ADD MANUAL DIFFER YES; DIFF SLIDE NUMBER 130
[2017-05-03 11:30] LABS: INR 0.98; PROTHROMBIN TIME 13.1 SECONDS (12.4-14.5)
[2017-05-03 11:31] LABS: PARTIAL THROMBOPLASTIN TIME 26.3 SECONDS (26.8-37.9)
[2017-05-03 11:47] LABS: AMMONIA 46 uMOL/L (<32)
[2017-05-03 11:55] LABS: LACTIC ACID SEPSIS PROTOCOL 1.2 MMOL/L (0.4-2.0)
[2017-05-03 11:55] LABS: ANISOCYTOSIS 1+; ATYPICAL LYMPH 5 % (0-5); LYMPHOCYTES 63 % (16-52); MONOCYTES 8 % (0-8); NEUTROPHILS 24 % (35-75); PLATELET ESTIMATE NORMAL (NORMAL); POIKILOCYTOSIS 1+
[2017-05-03 12:31] LABS: ALBUMIN 3.4 GM/DL (3.2-5.2); ALBUMIN/GLOBULIN RATIO 1.17 (1.00-1.93); ALKALINE PHOSPHATASE 140 U/L (45-117); ALT/SGPT 46 U/L (12-78); ANION GAP 8 MEQ/L (8-16); AST/SGOT 29 U/L (7-37); BILIRUBIN,DIRECT < 0.1 MG/DL (0.0-0.2); BILIRUBIN,TOTAL 0.2 MG/DL (0.2-1.0); BLOOD UREA NITROGEN 10 MG/DL (7-18); CALCIUM LEVEL 8.7 MG/DL (8.8-10.2); CARBON DIOXIDE LEVEL 29 MEQ/L (21-32); CHLORIDE LEVEL 102 MEQ/L (98-107); CPK CREATINE PHOSPHOKINASE 54 U/L (26-192); CREATININE FOR GFR 0.41 MG/DL (0.55-1.30); GLOMERULAR FILTRATION RATE > 60.0 (>39); GLUCOSE, FASTING 87 MG/DL (70-100); MB/CK RELATIVE INDEX 1.85 (< OR =4); PHENYTOIN (DILANTIN) 21.9 UG/ML (10.0-20.0); POTASSIUM SERUM 4.4 MEQ/L (3.5-5.1); SODIUM LEVEL 139 MEQ/L (136-145); TOTAL PROTEIN 6.3 GM/DL (6.4-8.2); TROPONIN I < 0.02 NG/ML (< 0.10)
[2017-05-03 12:50] LABS: ABG BASE EXCESS 2.6 (-2.0-2.0); ABG HCO3 28.1 MEQ/L (22.0-26.0); ABG O2 SATURATION 96.3 % (95.0-99.0); ABG PARTIAL PRESSURE CO2 46.6 mmHg (35.0-45.0); ABG PARTIAL PRESSURE O2 86.4 mmHg (75.0-100.0); ABG STANDARD HCO3 26.8 MEQ/L (22.0-26.0); ABG TOTAL CO2 29.5 MEQ/L (23.0-31.0); ABG pH (ARTERIAL) 7.398 UNITS (7.350-7.450)
[2017-05-03] MEDS: NS 1,000 ML IV (14:03)
[2017-05-03 14:08] LABS: APPEARANCE, URINE CLEAR (CLEAR); BACTERIA, URINE AUTO NEGATIVE (NEGATIVE); BILIRUBIN, URINE AUTO NEGATIVE (NEGATIVE); BLOOD, URINE BLOOD NEGATIVE (NEGATIVE); COLOR, URINE STRAW (YELLOW); GLUCOSE, URINE (UA) AUTO NEGATIVE (NEGATIVE); KETONE, URINE AUTO NEGATIVE (NEGATIVE); LEUKOCYTE ESTERASE, URINE AUTO NEGATIVE (NEGATIVE); NITRITE, URINE AUTO NEGATIVE (NEGATIVE); PROTEIN, URINE AUTO NEGATIVE (NEGATIVE); RBC, URINE AUTO 0 /HPF (0-3); SPECIFIC GRAVITY URINE AUTO 1.003 (1.002-1.035); SQUAMOUS EPITHELIAL CELL UR AU 0 /HPF (0-6); UROBILINOGEN, URINE AUTO 0.2 mg/dL (0.0-2.0); WBC, URINE AUTO 0 /HPF (0-3)
[2017-05-03 14:34] LABS: AMPHETAMINES LEVEL URINE NEGATIVE (NEGATIVE); BARBITURATES URINE NEGATIVE (NEGATIVE); BENZODIAZEPINES URINE NEGATIVE (NEGATIVE); CANNABINOIDS URINE NEGATIVE (NEGATIVE); COCAINE METABOLITE URINE NEGATIVE (NEGATIVE); METHADONE URINE NEGATIVE (NEGATIVE); OPIATES URINE NEGATIVE (NEGATIVE); PHENCYCLIDINE URINE NEGATIVE (NEGATIVE)
[2017-05-03] MEDS: PHENYTOIN ER 100 MG CAP PO ×2 (14:52→19:24)
[2017-05-03] MEDS: CALCIUM CARBONATE 500 MG CHEW U/D PO (21:26)
[2017-05-03] MEDS: SIMVASTATIN 10 MG TAB PO (21:27)
[2017-05-03] MEDS: ASPIRIN ENTERIC 325 MG TAB PO (21:27)
[2017-05-04] MEDS: ACETAMINOPHEN TAB 650MG DOSE (2X325MG) PO ×2 (01:44→20:19)
[2017-05-04 04:10] LABS: HEMATOCRIT 37.1 % (36.0-47.0); HEMOGLOBIN 12.1 g/dl (12.0-16.0); MEAN CORPUSCULAR HGB CONC 32.6 g/dl (32.0-36.5); MEAN CORPUSCULAR VOLUME 92.1 fl (80.0-96.0); PLATELET COUNT, AUTOMATED 261 10^3/uL (150-450); RED BLOOD COUNT 4.03 10^6/uL (4.00-5.40); RED CELL DISTRIBUTION WIDTH 12.6 % (11.5-14.5)
[2017-05-04 04:15] LABS: WHITE BLOOD COUNT 12.7 10^3/uL (4.0-10.0)
[2017-05-04 04:16] LABS: ADD MANUAL DIFFER YES; DIFF SLIDE NUMBER 72; POSITIVE DIFF POS FLAG
[2017-05-04 04:35] LABS: ALBUMIN 2.9 GM/DL (3.2-5.2); ALBUMIN/GLOBULIN RATIO 0.97 (1.00-1.93); ALKALINE PHOSPHATASE 118 U/L (45-117); ALT/SGPT 37 U/L (12-78); ANION GAP 5 MEQ/L (8-16); AST/SGOT 20 U/L (7-37); BILIRUBIN,TOTAL 0.2 MG/DL (0.2-1.0); BLOOD UREA NITROGEN 10 MG/DL (7-18); CALCIUM LEVEL 8.1 MG/DL (8.8-10.2); CARBON DIOXIDE LEVEL 28 MEQ/L (21-32); CHLORIDE LEVEL 108 MEQ/L (98-107); CREATININE FOR GFR 0.48 MG/DL (0.55-1.30); GLOMERULAR FILTRATION RATE > 60.0 (>39); GLUCOSE, FASTING 99 MG/DL (70-100); PHENYTOIN (DILANTIN) 19.4 UG/ML (10.0-20.0); POTASSIUM SERUM 4.1 MEQ/L (3.5-5.1); SODIUM LEVEL 141 MEQ/L (136-145); TOTAL PROTEIN 5.9 GM/DL (6.4-8.2)
[2017-05-04 05:04] LABS: ATYPICAL LYMPH 2 % (0-5); EOSINOPHILS 1 % (0-5); LYMPHOCYTES 64 % (16-52); MONOCYTES 6 % (0-8); NEUTROPHILS 27 % (35-75); PLATELET ESTIMATE NORMAL (NORMAL)
[2017-05-04] MEDS: NS 1,000 ML IV (05:26)
[2017-05-04] MEDS: CALCIUM CARBONATE 500 MG CHEW U/D PO ×2 (09:08→20:16)
[2017-05-04] MEDS: MULTIVITAMINS/MINERALS THERAP 1 TAB PO (09:08)
[2017-05-04] MEDS: OMEPRAZOLE 20 MG CAP PO (09:08)
[2017-05-04] MEDS: PHENYTOIN ER 100 MG CAP PO ×2 (09:08→20:16)
[2017-05-04] MEDS: ASCORBIC ACID 500 MG TAB PO (09:09)
[2017-05-04] MEDS: amLODIPine 5 MG TAB PO (09:09)
[2017-05-04] MEDS: ASPIRIN ENTERIC 325 MG TAB PO (20:18)
[2017-05-04] MEDS: SIMVASTATIN 10 MG TAB PO (20:18)
[2017-05-05] MEDS: MULTIVITAMINS/MINERALS THERAP 1 TAB PO (07:55)
[2017-05-05] MEDS: ASCORBIC ACID 500 MG TAB PO (07:55)
[2017-05-05] MEDS: CALCIUM CARBONATE 500 MG CHEW U/D PO (07:55)
[2017-05-05] MEDS: PHENYTOIN ER 100 MG CAP PO (07:55)
[2017-05-05] MEDS: OMEPRAZOLE 20 MG CAP PO (07:56)
[2017-05-05] MEDS: amLODIPine 5 MG TAB PO (07:56)
[2017-05-05 08:33] LABS: HEMATOCRIT 41.4 % (36.0-47.0); HEMOGLOBIN 13.7 g/dl (12.0-16.0); MEAN CORPUSCULAR HEMOGLOBIN 30.2 pg (27.0-33.0); MEAN CORPUSCULAR HGB CONC 33.1 g/dl (32.0-36.5); MEAN CORPUSCULAR VOLUME 91.2 fl (80.0-96.0); PLATELET COUNT, AUTOMATED 276 10^3/uL (150-450); RED BLOOD COUNT 4.54 10^6/uL (4.00-5.40); RED CELL DISTRIBUTION WIDTH 12.4 % (11.5-14.5)
[2017-05-05 08:38] LABS: POSITIVE DIFF POS FLAG; WHITE BLOOD COUNT 12.6 10^3/uL (4.0-10.0)
[2017-05-05 08:39] LABS: ADD MANUAL DIFFER YES; DIFF SLIDE NUMBER 130
[2017-05-05 08:47] LABS: ALBUMIN 3.4 GM/DL (3.2-5.2); ALBUMIN/GLOBULIN RATIO 1.13 (1.00-1.93); ALKALINE PHOSPHATASE 142 U/L (45-117); ALT/SGPT 41 U/L (12-78); ANION GAP 8 MEQ/L (8-16); AST/SGOT 23 U/L (7-37); BILIRUBIN,TOTAL 0.3 MG/DL (0.2-1.0); BLOOD UREA NITROGEN 12 MG/DL (7-18); CALCIUM LEVEL 8.9 MG/DL (8.8-10.2); CARBON DIOXIDE LEVEL 28 MEQ/L (21-32); CHLORIDE LEVEL 104 MEQ/L (98-107); CREATININE FOR GFR 0.58 MG/DL (0.55-1.30); GLOMERULAR FILTRATION RATE > 60.0 (>39); GLUCOSE, FASTING 105 MG/DL (70-100); MAGNESIUM LEVEL 1.8 MG/DL (1.8-2.4); POTASSIUM SERUM 4.1 MEQ/L (3.5-5.1); SODIUM LEVEL 140 MEQ/L (136-145); TOTAL PROTEIN 6.4 GM/DL (6.4-8.2)
[2017-05-05 09:06] LABS: ATYPICAL LYMPH 3 % (0-5); BANDS 1 % (< 11); LYMPHOCYTES 57 % (16-52); MONOCYTES 3 % (0-8); NEUTROPHILS 36 % (35-75); PLATELET ESTIMATE NORMAL (NORMAL)
[2017-05-05 09:07] LABS: ANISOCYTOSIS 1+
== END 2017-05-05 13:29 | disposition home or self-care (01) | DRG 93 ==
LOC: M MSPAV 05-04 15:42 → M ED 07:57 → M ED INP 13:03 → M ICU 14:58
DX: G92 Toxic encephalopathy (principal); T42.0X5A Adverse effect of hydantoin derivatives, initial encounter; G40.909 Epilepsy, unspecified, not intractable, without status epilepticus; I10 Essential (primary) hypertension; M19.90 Unspecified osteoarthritis, unspecified site; E78.5 Hyperlipidemia, unspecified; R53.83 Other fatigue; F32.9 Major depressive disorder, single episode, unspecified; R26.81 Unsteadiness on feet; R32 Unspecified urinary incontinence; Z87.820 Personal history of traumatic brain injury; Z79.82 Long term (current) use of aspirin; Z79.899 Other long term (current) drug therapy; Z96.642 Presence of left artificial hip joint

== ENCOUNTER → 2017-06-04 | Outpatient (REF) | payer MEDICARE, MEDICAID | LOC: M SFHCLERA 18:23 | DX: R30.0 Dysuria (principal) | CPT/HCPCS: 87086 ==

== ENCOUNTER → 2017-12-15 | Outpatient (REF) | payer MEDICARE, MEDICAID | LOC: M LAB REF 16:43 | DX: L08.9 Local infection of the skin and subcutaneous tissue, unspecified (principal) | CPT/HCPCS: 87186 ==

== ENCOUNTER → 2017-12-16 | Outpatient (CLI) | payer MEDICARE, MEDICAID ==
[2017-12-16 16:03] LABS: PHENYTOIN (DILANTIN) 13.7 UG/ML (10.0-20.0)
== END ==
LOC: M LRY 08:08
DX: R56.9 Unspecified convulsions (principal); Z51.81 Encounter for therapeutic drug level monitoring; Z79.899 Other long term (current) drug therapy

== ENCOUNTER → 2017-12-16 | Outpatient (CLI) | payer MEDICARE, MEDICAID ==
[2017-12-16 11:49] LABS: HEMATOCRIT 36.2 % (36.0-47.0); HEMOGLOBIN 11.9 g/dl (12.0-15.5); MEAN CORPUSCULAR HEMOGLOBIN 30.1 pg (27.0-33.0); MEAN CORPUSCULAR HGB CONC 32.9 g/dl (32.0-36.5); MEAN CORPUSCULAR VOLUME 91.6 fl (80.0-96.0); PLATELET COUNT, AUTOMATED 272 10^3/uL (150-450); RED BLOOD COUNT 3.95 10^6/uL (4.00-5.40); RED CELL DISTRIBUTION WIDTH 12.9 % (11.5-14.5)
[2017-12-16 12:00] LABS: WHITE BLOOD COUNT 12.5 10^3/uL (4.0-10.0)
[2017-12-16 12:01] LABS: ADD MANUAL DIFFER YES; DIFF SLIDE NUMBER 116; POSITIVE DIFF POS FLAG; POSITIVE MORPH POS FLAG
[2017-12-16 12:22] LABS: ATYPICAL LYMPH 7 % (0-5); EOSINOPHILS 2 % (0-5); LYMPHOCYTES 50 % (16-52); MONOCYTES 4 % (0-8); NEUTROPHILS 37 % (35-75)
[2017-12-16 12:23] LABS: PLATELET ESTIMATE NORMAL (NORMAL)
[2017-12-16 15:43] LABS: ALBUMIN 3.6 GM/DL (3.2-5.2); ALBUMIN/GLOBULIN RATIO 1.29 (1.00-1.93); ALKALINE PHOSPHATASE 129 U/L (45-117); ALT/SGPT 36 U/L (12-78); ANION GAP 7 MEQ/L (8-16); AST/SGOT 24 U/L (7-37); BILIRUBIN,DIRECT 0.1 MG/DL (0.0-0.2); BILIRUBIN,TOTAL 0.3 MG/DL (0.2-1.0); BLOOD UREA NITROGEN 11 MG/DL (7-18); CALCIUM LEVEL 9.3 MG/DL (8.8-10.2); CARBON DIOXIDE LEVEL 31 MEQ/L (21-32); CHLORIDE LEVEL 97 MEQ/L (98-107); CREATININE FOR GFR 0.59 MG/DL (0.55-1.30); GLOMERULAR FILTRATION RATE > 60.0 (>39); GLUCOSE, FASTING 82 MG/DL (70-100); PHOSPHORUS LEVEL 3.3 MG/DL (2.5-4.9); POTASSIUM SERUM 4.7 MEQ/L (3.5-5.1); SODIUM LEVEL 135 MEQ/L (136-145); TOTAL PROTEIN 6.4 GM/DL (6.4-8.2)
[2017-12-18 15:07] LABS: QuantiFERON-TB Gold Plus Negative (Negative)
== END ==
LOC: M LRY 08:14
DX: L40.0 Psoriasis vulgaris (principal); R56.9 Unspecified convulsions; G43.909 Migraine, unspecified, not intractable, without status migrainosus; Z51.81 Encounter for therapeutic drug level monitoring; Z79.899 Other long term (current) drug therapy
CPT/HCPCS: 80185

== ENCOUNTER → 2018-01-02 | Outpatient (CLI) | payer MEDICARE, MEDICAID | LOC: M WHC 09:44 | DX: Z12.31 Encounter for screening mammogram for malignant neoplasm of breast (principal) | CPT/HCPCS: 77067 ==

== ENCOUNTER 2018-03-27 11:14 | Observation (INO) | payer MEDICARE, MEDICAID ==
[~2018-03-27] VITALS: Ht 139.7 cm; Wt 64.1 kg
[~2018-03-27 11:14] MED LIST changes: +ASPI-222 PO; +CICL8SOL3 TOP; -DRIS50002 PO; +DRIS50003 PO; +SERT-138 PO
[2018-03-27] MEDS ORDERED: OMEP20CA3 PO (11:44)
[2018-03-27] MEDS ORDERED: FLUT05CR TOP (11:44)
[2018-03-27] MEDS ORDERED: PHEN30CA PO (11:44)
[2018-03-27] MEDS ORDERED: NS 500 ML IV ONE (11:45)
--- NOTE | 2018-03-27 12:14 | REP ---
CT Head without contrast HISTORY: Infarction COMPARISON: 05/03/2017 A metal plate is present in the right frontal and parietal bones. Beam-hardening artifact obscures the frontal lobes , right parietal and temporal lobes. There is no intraparenchymal hemorrhage, acute infarct, mass or midline shift. There is dilatation of the third and left lateral ventricles and cortical sulci consistent with moderate volume loss. There is no extra cerebral collection. There is no fracture. The visualized sinuses are clear. IMPRESSION: 1. Limited examination demonstrating no definite intracranial lesion. 2. Moderate volume loss. Electronically Signed by Ilan Aguirre MD 03/27/2018 12:06 P
--- NOTE | 2018-03-27 12:28 | REP ---
Chest one-view HISTORY: Infarction Comparison: 05/03/2017 The lungs are clear. The heart is normal in size. The pulmonary vasculature is normal in appearance. Impression: No acute disease. Electronically Signed by Ilan Aguirre MD 03/27/2018 12:20 P
[2018-03-27 12:29] LABS: HEMATOCRIT 38.2 % (36.0-47.0); HEMOGLOBIN 12.4 g/dl (12.0-15.5); MEAN CORPUSCULAR HGB CONC 32.5 g/dl (32.0-36.5); MEAN CORPUSCULAR VOLUME 92.5 fl (80.0-96.0); PLATELET COUNT, AUTOMATED 245 10^3/uL (150-450); RED BLOOD COUNT 4.13 10^6/uL (4.00-5.40)
[2018-03-27 12:39] LABS: INR 0.95; PARTIAL THROMBOPLASTIN TIME 25.9 SECONDS (25.4-37.6); PROTHROMBIN TIME 12.8 SECONDS (12.1-14.4)
[2018-03-27 13:05] LABS: BLOOD UREA NITROGEN 10 MG/DL (7-18); CALCIUM LEVEL 8.9 MG/DL (8.8-10.2); CARBON DIOXIDE LEVEL 32 MEQ/L (21-32); CHLORIDE LEVEL 99 MEQ/L (98-107); CPK CREATINE PHOSPHOKINASE 46 U/L (26-192); CREATININE FOR GFR 0.61 MG/DL (0.55-1.30); GLOMERULAR FILTRATION RATE > 60.0 (>39); GLUCOSE, FASTING 87 MG/DL (70-100); MB/CK RELATIVE INDEX 3.04 (< OR =4); POTASSIUM SERUM 4.5 MEQ/L (3.5-5.1); SODIUM LEVEL 137 MEQ/L (136-145); TROPONIN I < 0.02 NG/ML (< 0.10)
[2018-03-27 13:17] LABS: ANISOCYTOSIS 1+; ATYPICAL LYMPH 1 % (0-5); LYMPHOCYTES 80 % (16-52); MONOCYTES 2 % (0-8); NEUTROPHILS 17 % (35-75); PLATELET ESTIMATE NORMAL (NORMAL)
[2018-03-27 13:18] LABS: ACETAMINOPHEN LEVEL < 2.0 UG/ML (10.0-30.0); ALBUMIN 3.4 GM/DL (3.2-5.2); ALT/SGPT 31 U/L (12-78); BILIRUBIN,DIRECT 0.1 MG/DL (0.0-0.2); BILIRUBIN,TOTAL 0.2 MG/DL (0.2-1.0); ETHYL ALCOHOL (ETHANOL) < 0.003 % (0.000-0.010); PHENYTOIN (DILANTIN) 13.5 UG/ML (10.0-20.0); SALICYLATE LEVEL < 1.7 MG/DL (5.0-30.0); TOTAL PROTEIN 6.4 GM/DL (6.4-8.2)
[2018-03-27 13:59] LABS: AMPHETAMINES LEVEL URINE NEGATIVE (NEGATIVE); BARBITURATES URINE NEGATIVE (NEGATIVE); BENZODIAZEPINES URINE NEGATIVE (NEGATIVE); CANNABINOIDS URINE NEGATIVE (NEGATIVE); COCAINE METABOLITE URINE NEGATIVE (NEGATIVE); METHADONE URINE NEGATIVE (NEGATIVE); OPIATES URINE NEGATIVE (NEGATIVE); PHENCYCLIDINE URINE NEGATIVE (NEGATIVE)
[2018-03-27 14:46] LABS: ABG BASE EXCESS 0.4 (-2.0-2.0); ABG HCO3 24.4 MEQ/L (22.0-26.0); ABG PARTIAL PRESSURE CO2 37.1 mmHg (35.0-45.0); ABG PARTIAL PRESSURE O2 131.9 mmHg (75.0-100.0); ABG STANDARD HCO3 24.8 MEQ/L (22.0-26.0); ABG TOTAL CO2 25.5 MEQ/L (23.0-31.0); ABG pH (ARTERIAL) 7.435 UNITS (7.350-7.450)
[2018-03-27] MEDS ORDERED: BISACODYL 5 MG TAB PO PRN (17:45)
--- NOTE | 2018-03-27 19:51 | ECGEPIP ---
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
[2018-03-27] MEDS: ASPIRIN ENTERIC 325 MG TAB PO SCH (21:25)
[2018-03-27] MEDS: CALCIUM CARBONATE 500 MG CHEW U/D PO SCH (21:25)
[2018-03-27] MEDS: PHENYTOIN ER 100 MG CAP PO SCH (21:25)
[2018-03-27] MEDS: SIMVASTATIN 10 MG TAB PO SCH (21:25)
[2018-03-27] MEDS: SERTRALINE 100 MG TAB PO SCH (21:25)
[2018-03-27 23:20] VITALS: BP 148/63
[2018-03-28 06:00] VITALS: BP 113/65
[2018-03-28 06:54] LABS: HEMATOCRIT 37.6 % (36.0-47.0); HEMOGLOBIN 12.2 g/dl (12.0-15.5); MEAN CORPUSCULAR HEMOGLOBIN 29.3 pg (27.0-33.0); MEAN CORPUSCULAR HGB CONC 32.4 g/dl (32.0-36.5); MEAN CORPUSCULAR VOLUME 90.4 fl (80.0-96.0); PLATELET COUNT, AUTOMATED 257 10^3/uL (150-450); RED BLOOD COUNT 4.16 10^6/uL (4.00-5.40); WHITE BLOOD COUNT 14.5 10^3/uL (4.0-10.0)
[2018-03-28 07:02] LABS: BLOOD UREA NITROGEN 12 MG/DL (7-18); CARBON DIOXIDE LEVEL 28 MEQ/L (21-32); CHLORIDE LEVEL 103 MEQ/L (98-107); CREATININE FOR GFR 0.62 MG/DL (0.55-1.30); GLOMERULAR FILTRATION RATE > 60.0 (>39); GLUCOSE, FASTING 124 MG/DL (70-100); POTASSIUM SERUM 3.9 MEQ/L (3.5-5.1); SODIUM LEVEL 138 MEQ/L (136-145)
[2018-03-28] MEDS: ASCORBIC ACID 500 MG TAB PO SCH (08:12)
[2018-03-28] MEDS: PHENYTOIN ER 100 MG CAP PO SCH ×2 (08:12→20:20)
[2018-03-28] MEDS: MULTIVITAMINS/MINERALS THERAP 1 TAB PO SCH (08:12)
[2018-03-28] MEDS: OMEPRAZOLE 20 MG CAP PO SCH (08:12)
[2018-03-28] MEDS: CALCIUM CARBONATE 500 MG CHEW U/D PO SCH ×2 (08:12→20:20)
[2018-03-28] MEDS: ENOXAPARIN 40 MG/0.4 ML SYRINGE (J1650) SC SCH (08:13)
[2018-03-28] MEDS: amLODIPine 5 MG TAB PO SCH (08:13)
[2018-03-28 08:40] LABS: C REACTIVE PROTEIN QUANTITATIV 1.22 MG/DL (0.00-0.30)
[2018-03-28 14:00] VITALS: BP 166/97
--- NOTE | 2018-03-28 16:35 | REP ---
MR BRAIN WITHOUT CONTRAST: HISTORY: Altered mental status. COMPARISON: 05/03/2017. Areas of increased signal intensity on T2 weighted images are present in the frontal lobes, right parietal and temporal lobes. There is dilatation of the overlying cortical sulci and body of the right lateral ventricle. This represents gliosis and encephalomalacia. Areas of increased signal intensity on T2 weighted images are present in the periventricular and subcortical white matter. This represents small vessel ischemic disease. There is no intraparenchymal hemorrhage, acute infarct, mass or midline shift. The right cerebral peduncle is decreased in size consistent with Wallerian degeneration. The ventricular system and cortical sulci are dilated consistent with moderate volume loss. There is no extracerebral collection. The sinuses are clear. A metal plate is present in the right frontal and parietal bones. IMPRESSION: 1. Bilateral frontal lobe , right temporal and parietal lobe gliosis and encephalomalacia. 2. Small vessel ischemic disease. 3. Moderate volume loss. Electronically Signed by Ilan Aguirre MD 03/28/2018 04:51 P
--- NOTE | 2018-03-28 17:05 | IPNPDOC ---
Text Note Date of Service The patient was seen on 03/28/18. NOTE Subjective: Pt feels well. Denies any new neurologic deficits. No CP/SOB/palpi tations. No N/V/Abd pain. Objective: Vitals: (see below) General: No acute distress, laying comfortably in bed. HEENT: Moist mucous membranes. Neck: No JVD or lymphadenopathy Cardiac: RRR, No murmurs Pulm: Clear to auscultation b/l. No wheezing, rhonchi Abd: NT/ND + BS Ext: No edema or cyanosis Neuro: Strength 5/5 Right UE/LE. 4/5 left UE/LE at baseline. CN 2-12 intact. F to N intact Negative pronator drift. Negative Babinki. Labs (see below) Images: Peripheral smear 03/28/18 Chronic leukocytosis with relative and absolute lymphocytosis, and presence of smudge cells, highly suspicious for a low grade lymphoproliferative disorder. Flow cytometry of peripheral blood can be ordered to rule out chronic lymphocytic leukemia. The RBCs and platelets are unremarkable. MRI Brain 03/28/18 IMPRESSION: 1. Bilateral frontal lobe right, temporal and parietal lobe gliosis and encephalomalacia. 2. Small vessel ischemic disease. 3. Moderate volume loss. Assessment/Plan 1. Altered mental status- resolved. No signs of infection. MRI brain with no acute CVA (see above). Ammonia level/TSH within normal limits. Baclofen helped. 2. Chronic leukocytosis with peripheral smears highly suspicious of a low-grade lymphoproliferative disorder. Flow cytometry ordered for the am. Dr. Jiménez consulted. 3. 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 4. Hypertension controlled continue current meds 5. History of depression on Zoloft 6. History of epilepsy on Dilantin 7. History of GERD on PPI 8. History of psoriasis on steroid cream DVT prophy: Lovenox subcutaneous Overall prognosis guarded. [facility] patient. Plan for discharge in the next 24 hours if continues to improve. Physical therapy consulted. VS,Fishbone, I+O VS, Fishbone, I+O Laboratory Tests 03/28/18 05:28 Red Blood Count 4.16, Mean Corpuscular Volume 90.4, Mean Corpuscular Hemoglobin 29.3, Mean Corpuscular Hemoglobin Concent 32.4, Red Cell Distribution Width 14.0, Calcium Level 9.0 Vital Signs Date Time Temp Pulse Resp B/P (MAP) Pulse Ox O2 Delivery O2 Flow Rate FiO2 03/28/18 14:00 98.8 68 16 166/97 (120) 98 03/27/18 22:59 Room Air l I&O- Last 24 Hours up to 6 AM 03/28/18 06:00 Intake Total 50 ml Output Total 50 ml Balance 0 ml GE HANSEN MD Mar 28, 2018 17:05
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
[2018-03-28] MEDS: SERTRALINE 100 MG TAB PO SCH (20:19)
[2018-03-28] MEDS: SIMVASTATIN 10 MG TAB PO SCH (20:19)
[2018-03-28] MEDS: ASPIRIN ENTERIC 325 MG TAB PO SCH (20:20)
[2018-03-28 22:00] VITALS: BP 134/80
[2018-03-29] MEDS ORDERED: DOCUSATE SODIUM 100 MG CAP PO PRN (01:00)
[2018-03-29 05:39] LABS: HEMATOCRIT 33.7 % (36.0-47.0); HEMOGLOBIN 11.2 g/dl (12.0-15.5); MEAN CORPUSCULAR HEMOGLOBIN 29.9 pg (27.0-33.0); MEAN CORPUSCULAR HGB CONC 33.2 g/dl (32.0-36.5); MEAN CORPUSCULAR VOLUME 89.9 fl (80.0-96.0); PLATELET COUNT, AUTOMATED 212 10^3/uL (150-450); RED BLOOD COUNT 3.75 10^6/uL (4.00-5.40); WHITE BLOOD COUNT 13.2 10^3/uL (4.0-10.0)
[2018-03-29 06:00] VITALS: BP 132/83
[2018-03-29 06:15] LABS: BLOOD UREA NITROGEN 15 MG/DL (7-18); CALCIUM LEVEL 8.3 MG/DL (8.8-10.2); CARBON DIOXIDE LEVEL 29 MEQ/L (21-32); CHLORIDE LEVEL 105 MEQ/L (98-107); CREATININE FOR GFR 0.57 MG/DL (0.55-1.30); GLOMERULAR FILTRATION RATE > 60.0 (>39); GLUCOSE, FASTING 108 MG/DL (70-100); SODIUM LEVEL 138 MEQ/L (136-145)
[2018-03-29] MEDS: ENOXAPARIN 40 MG/0.4 ML SYRINGE (J1650) SC SCH (08:13)
[2018-03-29 08:14] VITALS: BP 132/83
[2018-03-29] MEDS: ASCORBIC ACID 500 MG TAB PO SCH (08:14)
[2018-03-29] MEDS: MULTIVITAMINS/MINERALS THERAP 1 TAB PO SCH (08:14)
[2018-03-29] MEDS: PHENYTOIN ER 100 MG CAP PO SCH (08:14)
[2018-03-29] MEDS: CALCIUM CARBONATE 500 MG CHEW U/D PO SCH (08:14)
[2018-03-29] MEDS: amLODIPine 5 MG TAB PO SCH (08:14)
[2018-03-29] MEDS: OMEPRAZOLE 20 MG CAP PO SCH (08:14)
--- NOTE | 2018-03-30 16:28 | DS.PDOC ---
Discharge Summary General Date of Admission Mar 27, 2018 at 19:27 Date of Discharge 03/29/18 Attending Physician: GE HANSEN MD Specialist/Consultants Involve: Tiana Jiménez MD Discharge Summary PROCEDURES PERFORMED DURING STAY: None. ADMITTING/DISCHARGE DIAGNOSES: 1. Altered mental status- resolved. No signs of infection. MRI brain with no acute CVA (see above). Ammonia level/TSH within normal limits. Baclofen held. 2. Chronic leukocytosis with peripheral smears highly suspicious of a low-grade lymphoproliferative disorder. Flow cytometry ordered for the am. Dr. Jiménez consulted. 3. 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 4. Hypertension controlled continue current meds 5. History of depression on Zoloft 6. History of epilepsy on Dilantin 7. History of GERD on PPI 8. History of psoriasis on steroid cream COMPLICATIONS/CHIEF COMPLAINT: AMS HISTORY OF PRESENT ILLNESS/HOSPITAL COURSE: This is a 73-year-old female past medical history of CVA with left-sided weakness, hypertension, depression, epilepsy who presents with altered mental status. Patient did not have any notable infection. MRI of the brain showed no acute CVA. Baclofen was discontinued and the patient subsequently improved. Patient was also noted to have persistent leukocytosis for which a peripheral smear noted highly suspicious of a low-grade lymphoproliferative disorder. Dr. Jiménez was consulted and will be following up with patient in the office. She has no hemodynamically stable, cleared by physical therapy for discharge. Will be discharged today. DISCHARGE MEDICATIONS: Please see below. ALLERGIES: Please see below. PHYSICAL EXAMINATION ON DISCHARGE: Vitals: (see below) General: No acute distress, laying comfortably in bed. HEENT: Moist mucous membranes. Neck: No JVD or lymphadenopathy Cardiac: RRR, No murmurs Pulm: Clear to auscultation b/l. No wheezing, rhonchi Abd: NT/ND + BS Ext: No edema or cyanosis Neuro: Strength 5/5 Right UE/LE. 4/5 left UE/LE at baseline. CN 2-12 intact. F to N intact Negative pronator drift. Negative Babinki. LABORATORY DATA: Please see below. IMAGING: Peripheral smear 03/28/18 Chronic leukocytosis with relative and absolute lymphocytosis, and presence of smudge cells, highly suspicious for a low grade lymphoproliferative disorder. Flow cytometry of peripheral blood can be ordered to rule out chronic lymphocytic leukemia. The RBCs and platelets are unremarkable. MRI Brain 03/28/18 IMPRESSION: 1. Bilateral frontal lobe right, temporal and parietal lobe gliosis and encephalomalacia. 2. Small vessel ischemic disease. 3. Moderate volume loss. PROGNOSIS: Fair to poor given comorbidities ACTIVITY: As tolerated. DIET: Low Na, Low chol DISCHARGE PLAN/DISPOSITION: [facility] DISCHARGE INSTRUCTIONS: 1. F/u with PCP and Dr. Jiménez in 1-2 weeks. Return to ED if symptoms worsen. DISCHARGE CONDITION: Stable. TIME SPENT ON DISCHARGE: Greater than 30 minutes. Vital Signs/I&Os Vital Signs Date Time Temp Pulse Resp B/P (MAP) Pulse Ox O2 Delivery O2 Flow Rate FiO2 03/29/18 08:14 67 132/83 03/29/18 06:00 97.7 14 96 03/27/18 22:59 Room Air I&O- Last 24 Hours up to 6 AM 03/30/18 06:00 Intake Total 450 ml Output Total 175 ml Balance 275 ml Microbiology Microbiology 03/27/18 Blood Culture - Preliminary, Resulted No Growth after 72 hours. All specime... 03/27/18 Blood Culture - Preliminary, Resulted No Growth after 72 hours. All specime... Discharge Medications Scheduled (Fluocinolone Acetonide) 0.01 % Oil, 3 DROP QWEEK, (Reported) ON FRIDAYS AT QHS (Ciclopirox Nail Lacquer) 8 % Sonja, 1 DOSE TOP QHS, (Reported) APPLY TO TOE NAILS Amlodipine Besylate (Norvasc) 5 Mg Tab, 5 MG PO DAILY, (Reported) Ascorbic Acid (Ascorbic Acid) 500 Mg Tab, 500 MG PO DAILY, (Reported) Aspirin (Aspirin) 325 Mg Tab, 325 MG PO QHS, (Reported) Boric Acid (Boric Acid) 4 % Sonja, 4 DROP 1XWK, (Reported) BORIC ACID 2 % IN 70 % ISOPROPYL ALCOHOL; EVERY TUESDAY AT QHS Calcium Carbonate (Calcium Antacid) 500 Mg Chw, 500 MG PO BID, (Reported) Ibandronate Sodium (Boniva) 150 Mg Tab, 150 MG PO QMONTH, (Reported) ON THE OF EVERY MONTH; NO FOOD OR OTHER MEDS Multivitamins *[facility] STOCKED* (Thera M Plus *[facility] STOCKED*) 1 Tab Tab, 1 TAB PO DAILY, (Reported) Nystatin (Nystatin Powder) 100,000 Unit/Gm Pow, 1 POW TOP BID, (Reported) UNDER BREASTS & IN GROIN Omeprazole (Omeprazole) 20 Mg Cap, 20 MG PO DAILY, (Reported) Phenytoin (Dilantin) 30 Mg Capcr, 30 MG PO QHS, (Reported) TAKES WITH 100MG QHS Phenytoin Sodium (Dilantin) 100 Mg Cap, 100 MG PO BID, (Reported) Sertraline HCl (Sertraline HCl) 100 Mg Tab, 100 MG PO QHS, (Reported) Simvastatin (Zocor) 10 Mg Tab, 10 MG PO QHS, (Reported) Tolterodine Tartrate (Detrol LA) 4 Mg Cap, 4 MG PO DAILY, (Reported) Vitamin D (Drisdol) 50,000 Unit Cap, 50,000 UNIT PO Q2WK, (Reported) TAKES EVERY OTHER TUESDAY; TAKES AT 1600 Scheduled PRN Fluticasone Propionate (Fluticasone Propionate 0.05%) 1 Dose/30 Gm Cream, 1 APLCT TOP BID PRN for FLARE, (Reported) APPLY TO TRUNK Allergies Coded Allergies: No Known Drug Allergy (Verified Allergy, Unknown, 01/11/17) GE HANSEN MD Mar 30, 2018 16:28
== END 2018-03-29 12:57 | disposition home or self-care (01) ==
LOC: EDBD 11:14 → M ED 11:14 → M ED INP 19:27 → M MSPAV 23:21
PROVIDERS: ADMIT Internal Medicine; ATTEND Internal Medicine
DX: R41.82 Altered mental status, unspecified (principal); D72.829 Elevated white blood cell count, unspecified; I69.254 Hemiplegia and hemiparesis following other nontraumatic intracranial hemorrhage affecting left non-dominant side; I10 Essential (primary) hypertension; F32.9 Major depressive disorder, single episode, unspecified; G40.909 Epilepsy, unspecified, not intractable, without status epilepticus; K21.9 Gastro-esophageal reflux disease without esophagitis; L40.8 Other psoriasis; Z79.82 Long term (current) use of aspirin; Z79.899 Other long term (current) drug therapy; E78.5 Hyperlipidemia, unspecified; Z87.820 Personal history of traumatic brain injury
CPT/HCPCS: 36415; 51701; 70450; 70551; 71045; 80048; 80076; 80185; 80307; 81001; 82140; 82550; 82553; 82803; 83605; 84443; 84484; 85025; 85027; 85610; 85730; 86140; 86850; 86900; 86901; 87040; 88300; 93005; 93041; 96372; 97116; 97161; 97165; 97530; 99285; G0378; G0480; J1650

== ENCOUNTER → 2018-05-29 | Outpatient (CLI) | payer MEDICARE, MEDICAID ==
[~2018-05-29] MED LIST changes: -/WARF25TA; -BONI150T PO; +BONI1TAB PO; +COUM1TAB18; +FLUT05CR TOP; +OMEP20CA3 PO; +SERT-141 PO; -SERT50TA PO
--- NOTE | 2018-05-29 08:51 | REP ---
PA and lateral chest: Comparison is the portable chest of 03/27/2018. The lung estrada are clear. The cardiac size is upper normal. The jesus and mediastinum are unremarkable. Thoracic vertebra are unremarkable except for multiple anterior osteophytes compatible with multilevel degenerative disc disease. Impression: Essentially negative PA and lateral chest except for multilevel thoracic spine degenerative disc disease. Electronically Signed by Agustín Moreland MD 05/29/2018 08:43 A
== END ==
LOC: M LRY 08:02
PROVIDERS: ATTEND Family Medicine
DX: Z87.09 Personal history of other diseases of the respiratory system (principal); M51.34 Other intervertebral disc degeneration, thoracic region

== ENCOUNTER 2018-09-06 13:08 | Observation (INO) | payer MEDICARE, MEDICAID ==
[~2018-09-06] VITALS: Ht 149.9 cm; Wt 60.6 kg
[~2018-09-06 13:08] MED LIST changes: -OMEP20CA3 PO; +OMEP20CA4 PO
[2018-09-06] MEDS ORDERED: PHARMACY COMMENT (14:39)
--- NOTE | 2018-09-06 14:59 | REP ---
CT brain without contrast: History: Trauma. Comparison brain CT study is from March 27, 2018. CT findings: The patient is status post right frontal and parietal craniotomy with a large high-density metallic craniectomy repair plate. This casts spray artifact which obscures much of the frontal lobes as before. No other bony calvarial defect is appreciated. No skull fracture is seen. There is extensive encephalomalacia again noted in the right temporal lobe. This is unchanged from a comparison MRI study May 03, 2017. There is no evidence of intracranial hemorrhage. No new infarction is appreciated. Impression: Somewhat limited exam due to metallic craniectomy prosthesis. Extensive encephalomalacia in the right temporal lobe. No traumatic abnormality is appreciated. Electronically Signed by Duane Jensen MD 09/06/2018 04:25 P
--- NOTE | 2018-09-06 15:01 | REP ---
CT study of the cervical spine without contrast: History: Trauma. Technique: Helical scanning is acquired and overlapping 2 mm high resolution axial images were generated and reviewed at bone and soft tissue window settings. Coronal and sagittal multiplanar re-formations images are generated. CT findings: The patient is placed in the scanner obliquely and asymmetrically. Cervical vertebral body heights are preserved. No fracture or collapse is seen. There are degenerative disc changes in the lower cervical and upper thoracic spine. Osteoarthritic facet changes are also noted bilaterally in the cervical spine. No prevertebral or paraspinal soft tissue swelling is seen. There is nodular enlargement of the left side of the thyroid gland. Minimal vascular calcification is present. Impression: Degenerative spondylosis changes. No traumatic abnormality noted. Electronically Signed by Duane Jensen MD 09/06/2018 04:26 P
[2018-09-06] MEDS ORDERED: DERMABOND TOPICAL SKIN ADHESIVE TOP ONE (15:30)
[2018-09-06] MEDS ORDERED: PHEN100C PO (16:11)
[2018-09-06] MEDS ORDERED: BORIC ACID AS (16:11)
[2018-09-06] MEDS ORDERED: TOLT4CAP3 PO (16:11)
[2018-09-06 17:12] LABS: HEMATOCRIT 42.4 % (36.0-47.0); HEMOGLOBIN 13.8 g/dl (12.0-15.5); MEAN CORPUSCULAR HEMOGLOBIN 29.7 pg (27.0-33.0); MEAN CORPUSCULAR HGB CONC 32.5 g/dl (32.0-36.5); MEAN CORPUSCULAR VOLUME 91.2 fl (80.0-96.0); PLATELET COUNT, AUTOMATED 253 10^3/uL (150-450); RED BLOOD COUNT 4.65 10^6/uL (4.00-5.40)
[2018-09-06 17:18] LABS: WHITE BLOOD COUNT 15.5 10^3/uL (4.0-10.0)
[2018-09-06 17:37] LABS: INR 1.01
[2018-09-06 17:40] LABS: LYMPHOCYTES 43 % (16-52); MONOCYTES 6 % (0-8); NEUTROPHILS 51 % (35-75); PLATELET ESTIMATE NORMAL (NORMAL)
[2018-09-06] MEDS ORDERED: ONDANSETRON 4MG/2ML VIAL (J2405) IV ONE (17:45)
[2018-09-06 17:50] LABS: BLOOD UREA NITROGEN 9 MG/DL (7-18); CALCIUM LEVEL 9.3 MG/DL (8.8-10.2); CARBON DIOXIDE LEVEL 29 MEQ/L (21-32); CHLORIDE LEVEL 96 MEQ/L (98-107); CK-MB VALUE MASS 1.3 NG/ML (<3.6); CPK CREATINE PHOSPHOKINASE 80 U/L (26-192); CREATININE FOR GFR 0.61 MG/DL (0.55-1.30); GLOMERULAR FILTRATION RATE > 60.0 (>39); GLUCOSE, FASTING 127 MG/DL (70-100); MAGNESIUM LEVEL 2.1 MG/DL (1.8-2.4); MB/CK RELATIVE INDEX 1.62 (< OR =4); PHENYTOIN (DILANTIN) 16.8 UG/ML (10.0-20.0); POTASSIUM SERUM 4.3 MEQ/L (3.5-5.1); SODIUM LEVEL 134 MEQ/L (136-145); THYROID STIMULATING HORMONE 0.534 uIU/ML (0.358-3.740); TROPONIN I < 0.02 NG/ML (< 0.10)
--- NOTE | 2018-09-06 19:18 | ECGEPIP ---
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
[2018-09-06] MEDS ORDERED: MAALOX 30 ML SUSP *UDC PO PRN (20:15)
[2018-09-06] MEDS ORDERED: FLUTICASONE 0.05% CREAM 30GM (CUTIVATE) TOP PRN (20:15)
[2018-09-06] MEDS ORDERED: MOM 30ML SUSPENSION UDC PO PRN (20:15)
--- NOTE | 2018-09-06 20:17 | HPEPDOC ---
General Date of Admission 09/06/18 Date of Service: Sep 06, 2018 Attending Physician: DARA TRUJILLO MD Chief Complaint The patient is a 73-year-old female admitted with a reason for visit of Syncope. Source: [facility] Caregiver/Aid Exam Limitations: Mild cognitive slowing Timing/Duration: Unsure Severity: Other Associated Symptoms: Unobtainable History of Present Illness 3 years old white female care home resident, was brought by insect control aide with chief complaints of mechanical fall and questionable syncope before fall. Patient was found to have a urinary incontinence after the fall, but no seizures were witnessed Patient has a intellectual disability, unable to obtain history. History was obtained from aide and the medical records from ED Patient is being admitted for syncope workup. Home Medications Scheduled Amlodipine Besylate (Norvasc) 5 Mg Tab, 5 MG PO DAILY, (Reported) Ascorbic Acid (Ascorbic Acid) 500 Mg Tab, 500 MG PO DAILY, (Reported) Aspirin (Aspirin EC) 325 Mg Tab, 325 MG PO QHS, (Reported) Calcium Carbonate (Antacid) 500 Mg Chw, 500 MG PO BID, (Reported) Ciclopirox (Ciclopirox) 8 % Sonja, 1 APLCT TOP QHS, (Reported) APPLY TO TOE NAILS Ergocalciferol (Vitamin D2) (Drisdol) 50,000 Unit Cap, 50,000 UNIT PO Q2WK, (Reported) TAKES EVERY OTHER TUESDAY; TAKES AT 1600 Fluocinolone Acetonide Oil (Fluocinolone Acetonide Oil) 0.01 % Oil, 3 DROP QWEEK, (Reported) ON FRIDAYS AT QHS Ibandronate Sodium (Boniva) 150 Mg Tab, 150 MG PO QMONTH, (Reported) ON THE OF EVERY MONTH; NO FOOD OR OTHER MEDS Multivitamins (Thera M Plus Tablet) 1 Tab Tab, 1 TAB PO DAILY, (Reported) Nystatin (Nystatin Powder) 100,000 Unit/Gm Pow, 1 APLCT TOP BID, (Reported) UNDER BREASTS & IN GROIN Omeprazole (Omeprazole) 20 Mg Cap, 20 MG PO DAILY, (Reported) Phenytoin (Dilantin) 30 Mg Capcr, 30 MG PO QHS, (Reported) TAKES WITH 100MG QHS Phenytoin Sodium Extended (Phenytoin Sodium Extended) 100 Mg Capsule, 100 MG PO BID, (Reported) Sertraline HCl (Sertraline HCl) 100 Mg Tab, 100 MG PO QHS, (Reported) Simvastatin (Zocor) 10 Mg Tab, 10 MG PO QHS, (Reported) Tolterodine Tartrate (Tolterodine Tartrate ER) 4 Mg Cap.er.24h, 4 MG PO DAILY, (Reported) [Boric Acid 2%] 2% DROPS, 4 DROP QWEEK, (Reported) 2% BORIC ACID IN ISOPROPYL ALCOHOL Scheduled PRN Fluticasone Propionate (Fluticasone Propionate 0.05%) 1 Dose/30 Gm Cream, 1 APLCT TOP BID PRN for FLARE, (Reported) APPLY TO TRUNK Miscellaneous Medications [Pharmacy Comment] , (Reported) WILL COMPLETE MED REC WHEN MAR IS SENT FROM [facility]. THEY ARE FAXING TO PHARMACY. Allergies Coded Allergies: No Known Allergies (Unverified , 06/19/18) Past Medical History Medical History History of hypertension, epilepsy, vitamin D deficiency and his skin conditions Surgical History None available Family History Significant Family History: Unable to assess Social History * Smoker: other (unable to assess) A-FIB/CHADSVASC A-FIB History Current/History of A-Fib/PAF?: No Review of Systems Constitutional: Reports: Other (unable to obtained review of systems secondary to patient's mental disability) Physical Examination General Exam: Positive: Alert, Cooperative Eye Exam: Positive: PERRLA, Conjunctiva & lids normal ENT Exam: Positive: Atraumatic, Mucous membr. moist/pink Neck Exam: Positive: Supple Chest Exam: Positive: Clear to auscultation, Normal air movement Heart Exam: Positive: Rate Normal, Normal S1, Normal S2 Abdomen Exam: Positive: Normal bowel sounds, Soft Neuro Exam: Positive: Other (. Moves all extremity. Unable to do extensive exam secondary to patient's physical and mental disc disability) Vital Signs Vital Signs Date Time Temp Pulse Resp B/P (MAP) Pulse Ox O2 Delivery O2 Flow Rate FiO2 09/06/18 19:15 71 18 95 09/06/18 19:01 182/83 (116) 09/06/18 16:01 Room Air 09/06/18 13:15 96.2 Laboratory Data Labs 24H Laboratory Tests 2 09/06/18 17:02: White Blood Count 15.5H, Red Blood Count 4.65, Hemoglobin 13.8, Hematocrit 42.4, Mean Corpuscular Volume 91.2, Mean Corpuscular Hemoglobin 29.7, Mean Corpuscular Hemoglobin Concent 32.5, Red Cell Distribution Width 13.1, Platelet Count 253, Lymphocytes # (Auto) , Nucleated Red Blood Cells % (auto) 0.0, Neutrophils 51, Lymphocytes (Manual) 43, Monocytes (Manual) 6, Platelet Estimate NORMAL, Red Blood Cell Morphology NORMAL, Prothrombin Time 13.0, Prothromb Time International Ratio 1.01, Anion Gap 9, Glomerular Filtration Rate > 60.0, Blood Urea Nitrogen 9, Creatinine 0.61, Sodium Level 134L, Potassium Level 4.3, Chloride Level 96L, Carbon Dioxide Level 29, Calcium Level 9.3, Total Creatine Kinase 80, Magnesium Level 2.1, Creatine Kinase MB 1.3, Creatine Kinase MB Relative Index 1.62, Troponin I < 0.02, Thyroid Stimulating Hormone (TSH) 0.534, Phenytoin (Dilantin) Level 16.8 CBC/BMP Laboratory Tests 09/06/18 17:02 Red Blood Count 4.65, Mean Corpuscular Volume 91.2, Mean Corpuscular Hemoglobin 29.7, Mean Corpuscular Hemoglobin Concent 32.5, Red Cell Distribution Width 13.1, Lymphocytes # (Auto) , Calcium Level 9.3, Total Creatine Kinase 80 Problems (1) Syncope Onset Date: 01/24/2014 Status: Acute Problem Text: Syncope. The etiology is unknown at the present time, but there is a questionable history of syncope, most likely is a mechanical fall, but cannot rule out breakthrough seizures are any other cause of syncope at the present time Admit to [facility] with telemetry IVs saline lock Echocardiogram Bilateral carotid Dopplers EEG PT eval in a.m. Regular diet Continue all home meds A.m. level work including drug levels Possible DC back to care home once the workup is complete and negative DVT prophylaxis with heparin Plan / VTE VTE Prophylaxis Ordered?: Yes DARA TRUJILLO MD Sep 06, 2018 20:17
[2018-09-06] MEDS: ASPIRIN ENTERIC 325 MG TAB PO SCH (20:57)
[2018-09-06] MEDS: SIMVASTATIN 10 MG TAB PO SCH (20:57)
[2018-09-06] MEDS: NYSTATIN 100,000 UNITS/GM TOPICAL PWD 15 GM TOP SCH (20:57)
[2018-09-06] MEDS: SERTRALINE 100 MG TAB PO SCH (20:57)
[2018-09-06] MEDS: CALCIUM CARBONATE 500 MG CHEW U/D PO SCH (20:57)
[2018-09-06] MEDS: PHENYTOIN ER 100 MG CAP PO SCH (20:57)
[2018-09-06] MEDS: DOCUSATE SODIUM 100 MG CAP PO SCH (20:57)
[2018-09-06] MEDS: PHENYTOIN ER 30 MG CAP PO SCH (20:57)
[2018-09-06] MEDS: HEPARIN SOD (PORCINE) 5000 UNITS/ML VIAL SC SCH (21:02)
[2018-09-06 23:08] VITALS: BP 160/70
[2018-09-06] MEDS ORDERED: ONDANSETRON 4MG/2ML VIAL (J2405) IV PRN (23:45)
[2018-09-06] MEDS ORDERED: MECLIZINE 12.5 MG TAB PO PRN (23:45)
[2018-09-07 06:00] VITALS: BP 154/80
--- NOTE | 2018-09-07 08:11 | REP ---
Bilateral carotid artery duplex ultrasound: Comparison is 01/25/2014. Peak flow velocity analysis: RIGHT LEFT ICA Peak flow velocity cm/sec 42.5 40.4 ICA Diastolic flow velocity cm/sec 7.0 5.4 ICA/CCA Ratio 0.70 0.56 ECA Peak flow velocity cm/sec 60.2 69.1 CCA Peak flow velocity cm/sec 62.4 72.3 There is intimal thickening bilaterally. There is no stenosis. The peak flow velocities are normal bilaterally. There is antegrade flow in the vertebral arteries bilaterally. Impression: Normal bilateral carotid duplex ultrasound. There is no stenosis. There is no interval change. Electronically Signed by Agustín Moreland MD 09/07/2018 08:03 A
[2018-09-07 09:29] LABS: HEMATOCRIT 40.6 % (36.0-47.0); HEMOGLOBIN 13.4 g/dl (12.0-15.5); MEAN CORPUSCULAR HEMOGLOBIN 29.3 pg (27.0-33.0); MEAN CORPUSCULAR VOLUME 88.8 fl (80.0-96.0); PLATELET COUNT, AUTOMATED 237 10^3/uL (150-450); RED BLOOD COUNT 4.57 10^6/uL (4.00-5.40); WHITE BLOOD COUNT 17.2 10^3/uL (4.0-10.0)
[2018-09-07] MEDS: PHENYTOIN ER 100 MG CAP PO SCH ×2 (09:49→20:59)
[2018-09-07] MEDS: ACETAMINOPHEN TAB 650MG DOSE (2X325MG) PO PRN ×3 (09:49→18:04)
[2018-09-07] MEDS: OMEPRAZOLE 20 MG CAP PO SCH (09:49)
[2018-09-07] MEDS: amLODIPine 5 MG TAB PO SCH (09:49)
[2018-09-07] MEDS: ASCORBIC ACID 500 MG TAB PO SCH (09:49)
[2018-09-07] MEDS: MULTIVITAMINS/MINERALS THERAP 1 TAB PO SCH (09:49)
[2018-09-07] MEDS: TOLTERODINE TARTRATE 2 MG LA CAP (DETROL LA) PO SCH (09:50)
[2018-09-07] MEDS: CALCIUM CARBONATE 500 MG CHEW U/D PO SCH ×2 (09:50→20:59)
[2018-09-07] MEDS: DOCUSATE SODIUM 100 MG CAP PO SCH ×2 (09:50→20:59)
[2018-09-07] MEDS: HEPARIN SOD (PORCINE) 5000 UNITS/ML VIAL SC SCH ×2 (09:50→21:00)
[2018-09-07] MEDS: NYSTATIN 100,000 UNITS/GM TOPICAL PWD 15 GM TOP SCH ×2 (09:51→21:00)
[2018-09-07 10:00] LABS: ALBUMIN 3.4 GM/DL (3.2-5.2); ALT/SGPT 30 U/L (12-78); BILIRUBIN,TOTAL 0.3 MG/DL (0.2-1.0); BLOOD UREA NITROGEN 10 MG/DL (7-18); CALCIUM LEVEL 9.4 MG/DL (8.8-10.2); CARBON DIOXIDE LEVEL 28 MEQ/L (21-32); CHLORIDE LEVEL 97 MEQ/L (98-107); CREATININE FOR GFR 0.58 MG/DL (0.55-1.30); GLOMERULAR FILTRATION RATE > 60.0 (>39); GLUCOSE, FASTING 122 MG/DL (70-100); MAGNESIUM LEVEL 2.1 MG/DL (1.8-2.4); POTASSIUM SERUM 3.7 MEQ/L (3.5-5.1); SODIUM LEVEL 132 MEQ/L (136-145); TOTAL PROTEIN 7.3 GM/DL (6.4-8.2)
--- NOTE | 2018-09-07 12:43 | IPNPDOC ---
Text Note Date of Service The patient was seen on 09/07/18. NOTE S: nursing staff report LEMUS and vomiting this AM which has since resolved. Jim leo states no longer has LEMUS and only 1 episode of emesis. Good appetite and states hopes to return home soon. Patient does not recall events surrounding syncope. O:Vitals as below General pleasant NAD AAOx3 HEENT: JOSE A/EOMI; left periorbital bruising and laceration (stitched by ED) HRRR no murmur LCTA no W/R/R Ext: no edema Carotid US: negative Echo pending EEG pending 1) Syncope with mechanical fall - Unclear etiology - check EEG, ECHO; Tele; observation possible d/c tomorrow if no reoccurance 2) concussion syndrome with LEMUS, V and memory loss (moderate) - monitor for now 3) history of seizure disorder - check seizure med levels. continue home regimen; no post ictal state currently 4) HTN - continue home regimen VS,Fishbone, I+O VS, Fishbone, I+O Laboratory Tests 09/06/18 17:02 Red Blood Count 4.65, Mean Corpuscular Volume 91.2, Mean Corpuscular Hemoglobin 29.7, Mean Corpuscular Hemoglobin Concent 32.5, Red Cell Distribution Width 13.1, Lymphocytes # (Auto) , Calcium Level 9.3, Total Creatine Kinase 80 09/07/18 09:09 Red Blood Count 4.57, Mean Corpuscular Volume 88.8, Mean Corpuscular Hemoglobin 29.3, Mean Corpuscular Hemoglobin Concent 33.0, Red Cell Distribution Width 13.2, Calcium Level 9.4, Aspartate Amino Transf (AST/SGOT) 23, Alanine Aminotransferase (ALT/SGPT) 30, Alkaline Phosphatase 144 H, Total Bilirubin 0.3, Total Protein 7.3, Albumin 3.4 Vital Signs Date Time Temp Pulse Resp B/P (MAP) Pulse Ox O2 Delivery O2 Flow Rate FiO2 09/07/18 09:49 70 154/80 09/07/18 06:00 98.0 18 96 09/06/18 16:01 Room Air I&O- Last 24 Hours up to 6 AM 09/07/18 06:00 Intake Total 150 ml Output Total 400 ml Balance -250 ml ZELDA HERNÁNDEZ DO Sep 07, 2018 11:13
[2018-09-07] MEDS: ASPIRIN ENTERIC 325 MG TAB PO SCH (20:59)
[2018-09-07] MEDS: SERTRALINE 100 MG TAB PO SCH (20:59)
[2018-09-07] MEDS: SIMVASTATIN 10 MG TAB PO SCH (20:59)
[2018-09-07] MEDS: PHENYTOIN ER 30 MG CAP PO SCH (21:02)
[2018-09-07 22:00] VITALS: BP 160/80
[2018-09-08 06:00] VITALS: BP 163/88
[2018-09-08 08:37] LABS: URIC ACID 1.8 MG/DL (2.6-6.0)
[2018-09-08] MEDS: ASCORBIC ACID 500 MG TAB PO SCH (08:46)
[2018-09-08] MEDS: PHENYTOIN ER 100 MG CAP PO SCH ×2 (08:46→21:59)
[2018-09-08] MEDS: MULTIVITAMINS/MINERALS THERAP 1 TAB PO SCH (08:46)
[2018-09-08] MEDS: TOLTERODINE TARTRATE 2 MG LA CAP (DETROL LA) PO SCH (08:46)
[2018-09-08] MEDS: CALCIUM CARBONATE 500 MG CHEW U/D PO SCH ×2 (08:46→21:59)
[2018-09-08] MEDS: amLODIPine 5 MG TAB PO SCH (08:46)
[2018-09-08] MEDS: HEPARIN SOD (PORCINE) 5000 UNITS/ML VIAL SC SCH ×2 (08:46→22:00)
[2018-09-08] MEDS: OMEPRAZOLE 20 MG CAP PO SCH (08:47)
[2018-09-08] MEDS: DOCUSATE SODIUM 100 MG CAP PO SCH ×2 (08:47→21:59)
[2018-09-08] MEDS: ACETAMINOPHEN TAB 650MG DOSE (2X325MG) PO PRN ×3 (08:48→19:46)
[2018-09-08] MEDS: NYSTATIN 100,000 UNITS/GM TOPICAL PWD 15 GM TOP SCH ×2 (08:50→22:00)
--- NOTE | 2018-09-08 09:46 | REP ---
Chest the patient sitting AP and lateral views: Comparison is 05/29/2018. The lung estrada are clear. The cardiac size is normal. The jesus, mediastinum, and skeletal structures are unremarkable. Impression: Negative AP and lateral chest. There is no interval change. Electronically Signed by Agustín Moreland MD 09/08/2018 09:37 A
[2018-09-08 10:14] LABS: HEMATOCRIT 38.1 % (36.0-47.0); HEMOGLOBIN 12.7 g/dl (12.0-15.5); MEAN CORPUSCULAR HEMOGLOBIN 29.4 pg (27.0-33.0); MEAN CORPUSCULAR HGB CONC 33.3 g/dl (32.0-36.5); MEAN CORPUSCULAR VOLUME 88.2 fl (80.0-96.0); PLATELET COUNT, AUTOMATED 306 10^3/uL (150-450); RED BLOOD COUNT 4.32 10^6/uL (4.00-5.40); WHITE BLOOD COUNT 19.5 10^3/uL (4.0-10.0)
[2018-09-08 10:30] LABS: BLOOD UREA NITROGEN 10 MG/DL (7-18); CALCIUM LEVEL 9.4 MG/DL (8.8-10.2); CARBON DIOXIDE LEVEL 31 MEQ/L (21-32); CHLORIDE LEVEL 97 MEQ/L (98-107); CREATININE FOR GFR 0.58 MG/DL (0.55-1.30); GLOMERULAR FILTRATION RATE > 60.0 (>39); GLUCOSE, FASTING 123 MG/DL (70-100); POTASSIUM SERUM 3.7 MEQ/L (3.5-5.1); SODIUM LEVEL 137 MEQ/L (136-145)
--- NOTE | 2018-09-08 13:24 | IPNPDOC ---
Text Note Date of Service The patient was seen on 09/08/18. NOTE S: patient with no reoccurance of syncope. LEMUS resolved. no N, no V. O: Vitals as below General: pleasant NAD AAOx3 HRRR LCTA A/P: 1) Syncope with mechanical fall - Unclear etiology - EEG, ECHO performed but pending; no changes on Tele; observation possible d/c tomorrow if cleared by PT 2) concussion syndrome with LEMUS, V and memory loss (moderate) - monitor for now 3) history of seizure disorder - check seizure med levels. continue home regimen; no post ictal state currently 4) HTN - continue home regimen 5) laceration to left face - remove sutures via ED in 5-7 days 6) leukocytosis - chronic elevation when chart reviewed over past years. Will need further outpatient workup. VS,Fishbone, I+O VS, Fishbone, I+O Laboratory Tests 09/08/18 07:43 Calcium Level 9.4 09/08/18 08:02 Red Blood Count 4.32, Mean Corpuscular Volume 88.2, Mean Corpuscular Hemoglobin 29.4, Mean Corpuscular Hemoglobin Concent 33.3, Red Cell Distribution Width 13.2 Vital Signs Date Time Temp Pulse Resp B/P (MAP) Pulse Ox O2 Delivery O2 Flow Rate FiO2 09/08/18 08:46 73 144/83 09/08/18 06:00 98.0 18 99 09/06/18 16:01 Room Air I&O- Last 24 Hours up to 6 AM 09/08/18 06:00 Intake Total 1500 ml Output Total 950 ml Balance 550 ml ZELDA HERNÁNDEZ DO Sep 08, 2018 13:24
[2018-09-08 14:00] VITALS: BP 150/66
--- NOTE | 2018-09-08 20:03 | ECHO ---
DATE OF PROCEDURE: 09/07/2018 DATE OF : 1945 AGE: 73 REFERRING PROVIDER: Dr. Pk Quintana PATIENT LOCATION: Room 4203 REASON FOR THE ECHOCARDIOGRAM: Syncope. 2D MEASUREMENTS: IVS: 0.9 cm LV: 3.9 cm LVPW: 0.9 cm LA: 3.5 cm Aorta: 3.0 cm RV: 2.4 cm IVC: 1.8 cm DOPPLER MEASUREMENTS: Peak velocity across the aortic valve: 1.4 m/s Peak velocity across the LVOT: 1.3 m/s Mitral E: 0.62, Mitral A: 0.78 with a ratio of 0.8 Maximum tricuspid valve velocity: 2.2 m/s 2D COMMENTS: 1. Normal left ventricular size, wall thickness, and normal global left ventricular systolic function. The estimated left ventricular systolic ejection fraction is 65-70%. 2. Normal left atrium. Normal right atrium and right ventricle. 3. The atrial septum appeared to be normal without evidence of defect or shunt. 4. Normal aortic root. 5. A small pericardial effusion was noted around the heart, no evidence of cardiac tamponade. 6. Mildly calcified aortic valve with normal leaflet excursion. Normal mitral valve, tricuspid valve, and pulmonic valve. The proximal pulmonary artery branches were not well visualized. 7. The inferior vena cava was normal in size, central venous pressure is most likely normal. DOPPLER: It detects mild aortic regurgitation, trace mitral regurgitation, trace tricuspid regurgitation. The calculated pulmonary artery systolic pressure was normal. Abnormal relaxation pattern was noted across the mitral valve leaflets as well as the mitral valve annulus consistent with features of grade 1 left ventricular diastolic dysfunction. IMPRESSION: 1. Normal global left ventricular systolic function. There were some features of left ventricular diastolic dysfunction, abnormal relaxation. 2. Aortic valve sclerosis with mild aortic regurgitation but no aortic stenosis. 3. Trace mitral regurgitation. 4. Trace tricuspid regurgitation with a normal calculated pulmonary artery systolic pressure. 5. A small pericardial effusion was noted, no evidence of cardiac tamponade.
[2018-09-08] MEDS: ASPIRIN ENTERIC 325 MG TAB PO SCH (21:59)
[2018-09-08] MEDS: PHENYTOIN ER 30 MG CAP PO SCH (21:59)
[2018-09-08] MEDS: SIMVASTATIN 10 MG TAB PO SCH (21:59)
[2018-09-08] MEDS: SERTRALINE 100 MG TAB PO SCH (21:59)
[2018-09-08 22:00] VITALS: BP 149/66
[2018-09-09 06:00] VITALS: BP 158/76
[2018-09-09] MEDS: CALCIUM CARBONATE 500 MG CHEW U/D PO SCH ×2 (08:36→22:15)
[2018-09-09] MEDS: TOLTERODINE TARTRATE 2 MG LA CAP (DETROL LA) PO SCH (08:36)
[2018-09-09] MEDS: ASCORBIC ACID 500 MG TAB PO SCH (08:36)
[2018-09-09] MEDS: HEPARIN SOD (PORCINE) 5000 UNITS/ML VIAL SC SCH ×2 (08:36→22:16)
[2018-09-09] MEDS: OMEPRAZOLE 20 MG CAP PO SCH (08:36)
[2018-09-09] MEDS: PHENYTOIN ER 100 MG CAP PO SCH ×2 (08:36→22:16)
[2018-09-09] MEDS: DOCUSATE SODIUM 100 MG CAP PO SCH ×2 (08:36→22:15)
[2018-09-09] MEDS: ACETAMINOPHEN TAB 650MG DOSE (2X325MG) PO PRN ×2 (08:37→20:50)
[2018-09-09] MEDS: amLODIPine 5 MG TAB PO SCH (08:37)
[2018-09-09] MEDS: MULTIVITAMINS/MINERALS THERAP 1 TAB PO SCH (08:37)
[2018-09-09] MEDS: NYSTATIN 100,000 UNITS/GM TOPICAL PWD 15 GM TOP SCH ×2 (08:37→22:19)
--- NOTE | 2018-09-09 08:56 | EEG ---
DATE OF PROCEDURE: 09/07/2018 REFERRING PHYSICIAN: Dr. Pk Quintana DIAGNOSIS: Syncope. EEG#: [id number] HISTORY: The patient is a 73-year-old woman from [facility] ([facility]) who tripped, fell on floor and hit left side of her head and has bruising of her scalp. This EEG was done to rule out epileptic potential. She already has history of seizures and takes Dilantin. She also takes aspirin, simvastatin, Zoloft tolterodine etc. TECHNICAL DESCRIPTION: This digital EEG was recorded by 21 scalp ear and two EKG electrodes and was reviewed in bipolar and referential montages following reformatting in 10-20 international electrode placement system. INTERPRETATION: The patient was noted to be in awake and drowsy states during this EEG. Resting and awake background rhythm consisted of 8 Hz alpha activity measuring 15 - 40 microvolts in amplitude which was symmetric and reactive to eye opening. Attenuation of posterior dominant rhythm was seen during transition into drowsiness. Stage I and II sleep were reviewed and symmetric bilaterally. Hyperventilation could not be performed. Photic stimulation remained unremarkable. EKG revealed normal sinus rhythm. Frequent right mid-posterior temporal and parietal spike, sharp waves and slow wave complexes were noted. No relevant clinical activity was noted. CONCLUSION: This EEG in awake, drowsy states, stage I and II sleep is abnormal due to presence of frequent right mid-posterior temporal and parietal epileptiform discharges consistent with focal cortical structural or functional abnormality with epileptic potential. Clinical correlation is recommended.
[2018-09-09 14:00] VITALS: BP 185/80
[2018-09-09] MEDS ORDERED: NORCO, ANEXSIA 5/325MG TABLET (HYDROcodone/ACETAMINOPHEN) PO ONE (15:00)
[2018-09-09 16:03] VITALS: BP 162/81
--- NOTE | 2018-09-09 18:02 | IPNPDOC ---
Text Note Date of Service The patient was seen on 09/09/18. NOTE S: patient with no reoccurance of syncope. Had LEMUS earlier today associated with HTN. LEMUS resolved with opioid. no N, no V. pateint is 1 person assist with walker to bathroom. States feels good and hope to go home soon. O: Vitals as below General: pleasant NAD AAOx3 HEENT: JOSE A/EOMI; left adventism area with sutures, intact and healing well HRRR LCTA EEG:This EEG in awake, drowsy states, stage I and II sleep is abnormal due to presence of frequent right mid-posterior temporal and parietal epileptiform discharges consistent with focal cortical structural or functional abnormality with epileptic potential. ECHO: IMPRESSION: 1. Normal global left ventricular systolic function. There were some features of left ventricular diastolic dysfunction, abnormal relaxation. 2. Aortic valve sclerosis with mild aortic regurgitation but no aortic stenosis. 3. Trace mitral regurgitation. 4. Trace tricuspid regurgitation with a normal calculated pulmonary artery systolic pressure. 5. A small pericardial effusion was noted, no evidence of cardiac tamponade. A/P: 1) Syncope with mechanical fall - observation. unknown etiology of syncope (unclear if pateint tripped fell and had syncope or if syncope caused her to fall) Medically stable for discharge , however, safety concerns per nursing staff and await clearance by PT 2) concussion syndrome with LEMUS, V and memory loss (moderate) - symptomatic treatment 3) history of seizure disorder - seizure med levels therapeutic. continue home regimen; no post ictal state currently 4) HTN - continue home regimen 5) laceration to left face - remove sutures via ED in 5-7 days 6) CML with chronic leukocytosis - stable Disposition: Medically stable for discharge , however, safety concerns per nursing staff and await clearance by PT VS,Endy, I+O VS, Endy, I+O Vital Signs Date Time Temp Pulse Resp B/P (MAP) Pulse Ox O2 Delivery O2 Flow Rate FiO2 09/09/18 16:03 74 162/81 (108) 09/09/18 15:22 16 09/09/18 14:00 97.0 96 09/06/18 16:01 Room Air I&O- Last 24 Hours up to 6 AM 09/09/18 06:00 Intake Total 638 ml Output Total 100 ml Balance 538 ml ZELDA HERNÁNDEZ DO Sep 09, 2018 18:02
[2018-09-09 22:00] VITALS: BP 164/82
[2018-09-09] MEDS: PHENYTOIN ER 30 MG CAP PO SCH (22:15)
[2018-09-09] MEDS: ASPIRIN ENTERIC 325 MG TAB PO SCH (22:15)
[2018-09-09] MEDS: SERTRALINE 100 MG TAB PO SCH (22:16)
[2018-09-09] MEDS: SIMVASTATIN 10 MG TAB PO SCH (22:16)
[2018-09-10 06:00] VITALS: BP 166/84
[2018-09-10] MEDS: HEPARIN SOD (PORCINE) 5000 UNITS/ML VIAL SC SCH ×2 (08:22→22:42)
[2018-09-10] MEDS: ASCORBIC ACID 500 MG TAB PO SCH (08:22)
[2018-09-10] MEDS: MULTIVITAMINS/MINERALS THERAP 1 TAB PO SCH (08:22)
[2018-09-10] MEDS: NYSTATIN 100,000 UNITS/GM TOPICAL PWD 15 GM TOP SCH ×2 (08:22→22:42)
[2018-09-10] MEDS: OMEPRAZOLE 20 MG CAP PO SCH (08:22)
[2018-09-10] MEDS: DOCUSATE SODIUM 100 MG CAP PO SCH ×2 (08:22→22:42)
[2018-09-10] MEDS: CALCIUM CARBONATE 500 MG CHEW U/D PO SCH ×2 (08:22→22:41)
[2018-09-10] MEDS: PHENYTOIN ER 100 MG CAP PO SCH ×2 (08:22→22:40)
[2018-09-10] MEDS: TOLTERODINE TARTRATE 2 MG LA CAP (DETROL LA) PO SCH (08:22)
[2018-09-10] MEDS: ACETAMINOPHEN TAB 650MG DOSE (2X325MG) PO PRN (08:23)
[2018-09-10] MEDS: amLODIPine 5 MG TAB PO SCH ×2 (08:23→22:41)
--- NOTE | 2018-09-10 10:20 | IPNPDOC ---
Text Note Date of Service The patient was seen on 09/10/18. NOTE S: patient states wants to go home soon. states mild pain to right wrist/arm. Xrays yesterday pending - pax/synapse system down - attempting to get reports O: Vitals as below General: pleasant NAD AAOx3 HRRR LCTA SKIN: left laceration to face healing well; HEENT: JOSE A/EOMI A/P: 1) Syncope with mechanical fall - observation. unknown etiology of syncope (unclear if pateint tripped fell and had syncope or if syncope caused her to fall) Medically stable for discharge , however, safety concerns per nursing staff and await clearance by PT 2) concussion syndrome with LEMUS, V and memory loss (moderate) - symptomatic treatment -improved 3) history of seizure disorder - seizure med levels therapeutic. continue home regimen; no post ictal state currently 4) HTN - continue home regimen 5) laceration to left face - healing 6) CML with chronic leukocytosis - stable Disposition: Medically stable for discharge , however, safety concerns per nursing staff and await clearance by PT VS,Endy, I+O VS, Endy, I+O Vital Signs Date Time Temp Pulse Resp B/P (MAP) Pulse Ox O2 Delivery O2 Flow Rate FiO2 09/10/18 08:23 67 158/76 09/10/18 06:00 97.2 18 97 09/06/18 16:01 Room Air I&O- Last 24 Hours up to 6 AM 09/10/18 05:59 Intake Total 640 ml Output Total 400 ml Balance 240 ml ZELDA HERNÁNDEZ DO Sep 10, 2018 10:20
--- NOTE | 2018-09-10 10:41 | REP ---
LEFT WRIST TWO VIEWS: There is no evidence of an acute fracture, dislocation or intrinsic bone disease. IMPRESSION: No fracture or dislocation. Electronically Signed by Agustín Enrique MD 09/10/2018 11:33 P
--- NOTE | 2018-09-10 10:42 | REP ---
LEFT ELBOW, TWO VIEWS: There is no evidence of an acute fracture, dislocation or intrinsic bone disease. IMPRESSION: No fracture or dislocation. Electronically Signed by Agustín Enrique MD 09/10/2018 11:36 P
--- NOTE | 2018-09-10 10:43 | REP ---
LEFT HUMERUS, TWO VIEWS: There is no evidence of an acute fracture, dislocation or intrinsic bone disease. IMPRESSION: No fracture or dislocation. Electronically Signed by Agustín Enrique MD 09/10/2018 11:36 P
--- NOTE | 2018-09-10 10:43 | REP ---
LEFT SHOULDER, THREE VIEWS: Three views of the left shoulder are performed. There is no acute fracture or dislocation. There is mild narrowing of the acromioclavicular and glenohumeral joints. IMPRESSION: No fracture or dislocation. Electronically Signed by Agustín Enrique MD 09/10/2018 11:35 P
[2018-09-10 14:00] VITALS: BP 161/76
[2018-09-10 22:00] VITALS: BP 162/79
[2018-09-10] MEDS: ASPIRIN ENTERIC 325 MG TAB PO SCH (22:39)
[2018-09-10] MEDS: PHENYTOIN ER 30 MG CAP PO SCH (22:39)
[2018-09-10] MEDS: SIMVASTATIN 10 MG TAB PO SCH (22:41)
[2018-09-10] MEDS: SERTRALINE 100 MG TAB PO SCH (22:41)
[2018-09-11 06:00] VITALS: BP 132/60
[2018-09-11] MEDS: CALCIUM CARBONATE 500 MG CHEW U/D PO SCH (08:51)
[2018-09-11] MEDS: PHENYTOIN ER 100 MG CAP PO SCH (08:51)
[2018-09-11] MEDS: OMEPRAZOLE 20 MG CAP PO SCH (08:51)
[2018-09-11 08:52] VITALS: BP 132/60
[2018-09-11] MEDS: ASCORBIC ACID 500 MG TAB PO SCH (08:52)
[2018-09-11] MEDS: MULTIVITAMINS/MINERALS THERAP 1 TAB PO SCH (08:52)
[2018-09-11] MEDS: HEPARIN SOD (PORCINE) 5000 UNITS/ML VIAL SC SCH (08:52)
[2018-09-11] MEDS: amLODIPine 5 MG TAB PO SCH (08:52)
[2018-09-11] MEDS: DOCUSATE SODIUM 100 MG CAP PO SCH (08:52)
[2018-09-11] MEDS: NYSTATIN 100,000 UNITS/GM TOPICAL PWD 15 GM TOP SCH (08:53)
[2018-09-11] MEDS: TOLTERODINE TARTRATE 2 MG LA CAP (DETROL LA) PO SCH (08:59)
[2018-09-11] MEDS ORDERED: NORV5TAB PO (11:57)
--- NOTE | 2018-09-11 12:15 | DS.PDOC ---
Discharge Summary General Date of Admission Sep 06, 2018 at 20:04 Date of Discharge 09/11/18 Attending Physician: ZELDA HERNÁNDEZ DO Discharge Summary PROCEDURES PERFORMED DURING STAY: none. ADMITTING DIAGNOSES: Syncope DISCHARGE DIAGNOSES: 1) Syncope with mechanical fall - 2) concussion syndrome with LEMUS, V and memory loss (moderate) - 3) history of seizure disorder 4) HTN benign essential- 5) laceration to left face - 6) CML with chronic leukocytosis - stable COMPLICATIONS/CHIEF COMPLAINT: Syncope. 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 Patient was found to have a urinary incontinence after the fall, but no seizures were witnessed. see H&P for details HOSPITAL COURSE: Patient admitted. Carotid US, Echo and EEG were not revealing as to etiology of syncope. She continued to progress well with PT and was cleared by PT to resume outpatient PT at [facility]. Her BP was controlled with norvasc BID dosing. she had intermittent symtpoms of concussion with LEMUS and memory loss but overall did well. The laceration to left face healing well, no sutures present. Discharge in stable/improved condition DISCHARGE MEDICATIONS: Please see below. ALLERGIES: Please see below. PHYSICAL EXAMINATION ON DISCHARGE: VITAL SIGNS: Please see below.General: pleasant NAD AAOx3 HEENT: JOSE A/EOMI SKIN: left laceration to face healing well; no sutures present HRRR LCTA LABORATORY DATA: Please see below. IMAGING: Carotid US: negative ECHO IMPRESSION: 1. Normal global left ventricular systolic function. There were some features of left ventricular diastolic dysfunction, abnormal relaxation. 2. Aortic valve sclerosis with mild aortic regurgitation but no aortic stenosis. 3. Trace mitral regurgitation. 4. Trace tricuspid regurgitation with a normal calculated pulmonary artery systolic pressure. 5. A small pericardial effusion was noted, no evidence of cardiac tamponade. EEG:This EEG in awake, drowsy states, stage I and II sleep is abnormal due to presence of frequent right mid-posterior temporal and parietal epileptiform discharges consistent with focal cortical structural or functional abnormality with epileptic potential PROGNOSIS: good ACTIVITY: as tolerated, walker, PT consult as outpatient DIET: as tolerated DISCHARGE PLAN: discharged to [facility] with outpatient PT Follow up with PCP in 5-7 days DISCHARGE CONDITION: [Stable]. TIME SPENT ON DISCHARGE: 30 minutes. Vital Signs/I&Os Vital Signs Date Time Temp Pulse Resp B/P (MAP) Pulse Ox O2 Delivery O2 Flow Rate FiO2 09/11/18 08:52 73 132/60 09/11/18 06:00 97.1 18 93 09/06/18 16:01 Room Air I&O- Last 24 Hours up to 6 AM 09/11/18 06:00 Intake Total 440 ml Output Total 600 ml Balance -160 ml Laboratory Data Labs 24H Item Value Date Time White Blood Count 19.5 10^3/uL H 09/08/18 0802 Hemoglobin 12.7 g/dl 09/08/18 0802 Hematocrit 38.1 % 09/08/18 0802 Platelet Count 306 10^3/uL 09/08/18 0802 Sodium Level 137 MEQ/L 09/08/18 0743 Potassium Level 3.7 MEQ/L 09/08/18 0743 Blood Urea Nitrogen 10 MG/DL 09/08/18 0743 Creatinine 0.58 MG/DL 09/08/18 0743 Fasting Glucose 123 MG/DL H 09/08/18 0743 Phenytoin (Dilantin) Level 16.8 UG/ML 09/06/18 1702 Methicillin-Resist S.aureus DNA PCR NOT DETECTED 09/08/18 1219 Discharge Medications Scheduled Amlodipine Besylate (Norvasc) 5 Mg Tab, 5 MG PO BID Ascorbic Acid (Ascorbic Acid) 500 Mg Tab, 500 MG PO DAILY, (Reported) Aspirin (Aspirin EC) 325 Mg Tab, 325 MG PO QHS, (Reported) Calcium Carbonate (Antacid) 500 Mg Chw, 500 MG PO BID, (Reported) Ciclopirox (Ciclopirox) 8 % Sonja, 1 APLCT TOP QHS, (Reported) APPLY TO TOE NAILS Ergocalciferol (Vitamin D2) (Drisdol) 50,000 Unit Cap, 50,000 UNIT PO Q2WK, (Reported) TAKES EVERY OTHER TUESDAY; TAKES AT 1600 Fluocinolone Acetonide Oil (Fluocinolone Acetonide Oil) 0.01 % Oil, 3 DROP QWEEK, (Reported) ON FRIDAYS AT QHS Ibandronate Sodium (Boniva) 150 Mg Tab, 150 MG PO QMONTH, (Reported) ON THE OF EVERY MONTH; NO FOOD OR OTHER MEDS Multivitamins (Thera M Plus Tablet) 1 Tab Tab, 1 TAB PO DAILY, (Reported) Nystatin (Nystatin Powder) 100,000 Unit/Gm Pow, 1 APLCT TOP BID, (Reported) UNDER BREASTS & IN GROIN Omeprazole (Omeprazole) 20 Mg Cap, 20 MG PO DAILY, (Reported) Phenytoin (Dilantin) 30 Mg Capcr, 30 MG PO QHS, (Reported) TAKES WITH 100MG QHS Phenytoin Sodium Extended (Phenytoin Sodium Extended) 100 Mg Capsule, 100 MG PO BID, (Reported) Sertraline HCl (Sertraline HCl) 100 Mg Tab, 100 MG PO QHS, (Reported) Simvastatin (Zocor) 10 Mg Tab, 10 MG PO QHS, (Reported) Tolterodine Tartrate (Tolterodine Tartrate ER) 4 Mg Cap.er.24h, 4 MG PO DAILY, (Reported) [Boric Acid 2%] 2% DROPS, 4 DROP QWEEK, (Reported) 2% BORIC ACID IN ISOPROPYL ALCOHOL Scheduled PRN Fluticasone Propionate (Fluticasone Propionate 0.05%) 1 Dose/30 Gm Cream, 1 APLCT TOP BID PRN for FLARE, (Reported) APPLY TO TRUNK Miscellaneous Medications [Pharmacy Comment] , (Reported) WILL COMPLETE MED REC WHEN MAR IS SENT FROM [facility]. THEY ARE FAXING TO PHARMACY. Allergies Coded Allergies: No Known Allergies (Unverified , 06/19/18) ZELDA HERNÁNDEZ DO Sep 11, 2018 12:15
== END 2018-09-11 14:11 | disposition home or self-care (01) ==
LOC: EDBD 13:08 → M ED 13:08 → M ED INP 20:04 → M MSPAV 23:07
PROVIDERS: ADMIT Internal Medicine; ATTEND Family Medicine
DX: R55 Syncope and collapse (principal); S01.81XA Laceration without foreign body of other part of head, initial encounter; W19.XXXA Unspecified fall, initial encounter; F07.81 Postconcussional syndrome; R51 Headache; R41.3 Other amnesia; I10 Essential (primary) hypertension; C92.11 Chronic myeloid leukemia, BCR/ABL-positive, in remission; D72.829 Elevated white blood cell count, unspecified; Z79.82 Long term (current) use of aspirin; Z79.899 Other long term (current) drug therapy; G40.919 Epilepsy, unspecified, intractable, without status epilepticus; G31.84 Mild cognitive impairment of uncertain or unknown etiology; M79.602 Pain in left arm; Y93.9 Activity, unspecified; Y92.9 Unspecified place or not applicable; Y99.9 Unspecified external cause status
CPT/HCPCS: 36415; 70450; 71046; 72125; 73030; 73060; 73070; 73100; 80048; 80053; 80185; 82550; 82553; 83735; 84443; 84484; 84550; 85025; 85027; 85610; 87641; 93005; 93041; 93306; 93880; 94760; 95819; 96372; 96374; 97161; 97530; 99285; G0378; J2405

== ENCOUNTER 2018-10-07 19:15 | Emergency (ER) | payer MEDICARE, MEDICAID ==
[~2018-10-07] VITALS: Ht 149.9 cm; Wt 63.6 kg
[~2018-10-07 19:15] MED LIST changes: -ASPI-222 PO; +ASPI-527 PO; +BORIC ACID AS; +OMEP1CAP73 PO; -OMEP20CA4 PO; +PHARMACY COMMENT; +PHEN100C PO; +TOLT4CAP3 PO
--- NOTE | 2018-10-07 19:47 | ECGEPIP ---
[facility] - ED Test Date: 2018-10-07 Pat Name: MARILYNN HUYNH Department: Room: - Gender: Female Pc Technician: : 1945 Requested By: IVAN Moran Order Number: [id number] Reading MD: Ana Gonzalez Measurements Intervals [place] Rate: 76 P: 47 MT: 176 QRS: 5 QRSD: 87 T: 23 QT: 381 QTc: 431 Interpretive Statements SINUS RHYTHM PROBABLE INFERIOR MYOCARDIAL INFARCTION, PROBABLY OLD DELAYED R WAVE PROGRESSION NONSPECIFIC ST T WAVE CHANGES CW 09/06/[address] T WAVE CHANGES Electronically Signed on 10-07-2018 19:46:42 EDT by Ana Gonzalez
--- NOTE | 2018-10-07 20:07 | REPVR ---
EXAM: CT Head Without Contrast EXAM DATE/TIME: 10/07/2018 7:51 PM CLINICAL HISTORY: 73 years old, female; Injury or trauma; Fall; Initial encounter; Blunt trauma (contusions or hematomas); Consciousness not specified TECHNIQUE: Imaging protocol: Computed tomography images of the head without contrast. Radiation optimization: All CT scans at this facility use at least one of these dose optimization techniques: automated exposure control; mA and/or kV adjustment per patient size (includes targeted exams where dose is matched to clinical indication); or iterative reconstruction. COMPARISON: CT Head without contrast 09/06/2018 2:13 PM FINDINGS: Brain: There is volume loss. There is extensive right temporal encephalomalacia. No acute infarct. No hemorrhage or extra-axial collection. No mass. Ventricles: Ex vacuole dilatation of the right lateral ventricle. Bones/joints: Extensive right frontal craniotomy and cranioplasty with extensive metal artifact obscuring the adjacent intracranial contents. Sinuses: Visualized sinuses are unremarkable. No fluid levels. Mastoid air cells: Visualized mastoid air cells are well aerated. No mastoid effusion. Soft tissues: Unremarkable. IMPRESSION: 1. Right frontal metal cranioplasty results in extensive metal artifact obscuring the adjacent intracranial contents. 2. Extensive right temporal chronic encephalomalacia. 3. No acute lesion or injury within the limits of metal artifact. No change from prior scan. Electronically signed by: Sha Hines On 10/07/2018 20:06:59 PM
--- NOTE | 2018-10-07 20:16 | REPVR ---
EXAM: CT Cervical Spine Without Contrast EXAM DATE/TIME: 10/07/2018 7:51 PM CLINICAL HISTORY: 73 years old, female; Injury or trauma; Fall; Initial encounter; Concussion /head injury TECHNIQUE: Imaging protocol: Computed tomography images of the cervical spine without contrast. Coronal and sagittal reformatted images were created and reviewed. Radiation optimization: All CT scans at this facility use at least one of these dose optimization techniques: automated exposure control; mA and/or kV adjustment per patient size (includes targeted exams where dose is matched to clinical indication); or iterative reconstruction. COMPARISON: CT Spine,cervical w/o contrast 09/06/2018 2:13 PM FINDINGS: Vertebrae: There is no fracture. Vertebral alignment is normal. Discs/Spinal canal/Neural foramina: There is no central spinal stenosis. There is foraminal stenosis most severe on the left at C4-C5. Soft tissues: Unremarkable. Thyroid: The left thyroid lobe is enlarged. Lungs: Lung apices are normal. IMPRESSION: No fracture. Electronically signed by: Sha Hines On 10/07/2018 20:15:57 PM
[2018-10-07 20:27] LABS: HEMATOCRIT 37.8 % (36.0-47.0); HEMOGLOBIN 12.6 g/dl (12.0-15.5); MEAN CORPUSCULAR HEMOGLOBIN 30.7 pg (27.0-33.0); MEAN CORPUSCULAR HGB CONC 33.3 g/dl (32.0-36.5); PLATELET COUNT, AUTOMATED 236 10^3/uL (150-450); RED BLOOD COUNT 4.11 10^6/uL (4.00-5.40); WHITE BLOOD COUNT 14.1 10^3/uL (4.0-10.0)
[2018-10-07 21:03] LABS: ALBUMIN 3.2 GM/DL (3.2-5.2); ALT/SGPT 43 U/L (12-78); BILIRUBIN,TOTAL 0.2 MG/DL (0.2-1.0); BLOOD UREA NITROGEN 11 MG/DL (7-18); C REACTIVE PROTEIN QUANTITATIV 1.31 MG/DL (0.00-0.30); CALCIUM LEVEL 9.1 MG/DL (8.8-10.2); CARBON DIOXIDE LEVEL 31 MEQ/L (21-32); CHLORIDE LEVEL 101 MEQ/L (98-107); CK-MB VALUE MASS < 1.0 NG/ML (<3.6); CPK CREATINE PHOSPHOKINASE 43 U/L (26-192); CREATININE FOR GFR 0.58 MG/DL (0.55-1.30); GLOMERULAR FILTRATION RATE > 60.0 (>39); GLUCOSE, FASTING 120 MG/DL (70-100); MB/CK RELATIVE INDEX 2.33 (< OR =4); PHENYTOIN (DILANTIN) 12.8 UG/ML (10.0-20.0); POTASSIUM SERUM 3.6 MEQ/L (3.5-5.1); SODIUM LEVEL 139 MEQ/L (136-145); THYROID STIMULATING HORMONE 0.375 uIU/ML (0.358-3.740); TOTAL PROTEIN 6.1 GM/DL (6.4-8.2); TROPONIN I < 0.02 NG/ML (< 0.10)
[2018-10-07] MEDS ORDERED: ACETAMINOPHEN TAB 650MG DOSE (2X325MG) PO ONE (22:30)
[2018-10-07] MEDS ORDERED: CEFD1CAP8 PO (23:40)
[2018-10-07] MEDS ORDERED: CEFDINIR 300 MG CAP (OMNICEF) PO ONE (23:45)
[2018-10-08 00:16] VITALS: BP 143/64
--- NOTE | 2018-10-08 10:12 | REP ---
AP PELVIS WITH LEFT HIP: 10/07/2018. Comparison: Left femur, 11/28/2016. Clinical History: Fall. Patient in pain with limited movement. Findings: AP pelvis: Pelvic ring intact. Some degenerative changes lower lumbar disc spaces and facets noted. Sacral ala and foramina intact. Some minor degenerative changes at the SI joints. The right hip joint shows acetabular roof spurring and slight narrowing superiorly. No fracture or focal lesion of the right hip, trochanters or proximal shaft of the femur. Pubic rami intact. Symphysis pubis sclerosis of its margins but unchanged from prior study The left hip shows three threaded pins across the femoral neck into the femoral head from old ORIF of the subcapital fracture. No change in the position or loosening of the tendons. No migration or hardware failure. There is no visible fracture of the hip. Minor degenerative change. Impression: 1. Status post ORIF with 3 threaded pins in the left hip into the femoral head. Their positions unchanged from the previous study in 2017. 2. Degenerative changes lower lumbar spine. SI joints with some hip osteoarthritic change in the right side. No acute fracture or destructive lesion. Electronically Signed by Kendell Vallecillo MD 10/08/2018 08:26 P
--- NOTE | 2018-10-08 10:13 | REP ---
AP PORTABLE CHEST: 10/07/2018. Comparison: 2-view chest 09/08/2018, 05/29/2018; AP chest 03/27/2018. Clinical history: Fall. Findings: Lungs quite hypoinflated. Crowding of markings in the bases. Superimposed costal cartilages in the upper lung zones present could obscure parenchymal findings. No definite infiltrate or effusion. No visible or displaced fracture of the ribs, clavicles and portions of scapula included the visualized clavicles also intact. Impression: 1. Hypoinflated chest with some chronic interstitial fibrotic changes which are mild and with the heart size magnified by low level of inflation. No travis edema, dense consolidation, effusion or pneumothorax. 2. No visible fracture. Electronically Signed by Kendell Vallecillo MD 10/08/2018 08:26 P
[2018-12-25] MEDS ORDERED: PRIL20TA2 PO (10:11)
== END 2018-10-08 00:05 | disposition home or self-care (01) ==
LOC: M ED 19:15
DX: N39.0 Urinary tract infection, site not specified (principal); R25.1 Tremor, unspecified; I10 Essential (primary) hypertension; G40.909 Epilepsy, unspecified, not intractable, without status epilepticus; Z85.6 Personal history of leukemia; Z87.81 Personal history of (healed) traumatic fracture; M47.819 Spondylosis without myelopathy or radiculopathy, site unspecified; Z79.82 Long term (current) use of aspirin; Z79.899 Other long term (current) drug therapy

== ENCOUNTER 2018-10-20 14:00 | Outpatient (RCR) | payer MEDICARE, MEDICAID ==
[~2018-10-20 14:00] MED LIST changes: +ASPI-222 PO; -ASPI-527 PO; +CEFD1CAP8 PO; -OMEP1CAP73 PO; +OMEP20CA4 PO
== END 2018-10-21 ==
LOC: M PT 14:00
PROVIDERS: ATTEND Family Medicine
DX: R55 Syncope and collapse (principal)

== ENCOUNTER → 2018-10-26 | Outpatient (REF) | payer MEDICARE, MEDICAID ==
[~2018-10-26] MED LIST changes: -ASPI-222 PO; +ASPI-527 PO; +OMEP1CAP73 PO; -OMEP20CA4 PO; +PRIL20TA2 PO
[2018-10-26 20:27] LABS: APPEARANCE, URINE CLOUDY (CLEAR); BACTERIA, URINE AUTO 1+ (NEGATIVE); BILIRUBIN, URINE AUTO NEGATIVE (NEGATIVE); BLOOD, URINE BLOOD NEGATIVE (NEGATIVE); CALCIUM OXALATE CRYSTALS SMALL; COLOR, URINE YELLOW (YELLOW); GLUCOSE, URINE (UA) AUTO NEGATIVE (NEGATIVE); KETONE, URINE AUTO NEGATIVE (NEGATIVE); LEUKOCYTE ESTERASE, URINE AUTO 3+ (NEGATIVE); MUCUS, URINE SMALL (NEGATIVE); NITRITE, URINE AUTO NEGATIVE (NEGATIVE); PROTEIN, URINE AUTO NEGATIVE (NEGATIVE); RBC, URINE AUTO 9 /HPF (0-3); SPECIFIC GRAVITY URINE AUTO 1.021 (1.002-1.035); SQUAMOUS EPITHELIAL CELL UR AU 3 /HPF (0-6); UROBILINOGEN, URINE AUTO 0.2 mg/dL (0.0-2.0); WBC, URINE AUTO TNTC /HPF (0-3)
== END ==
LOC: M LAB REF 09:58
PROVIDERS: ATTEND Nurse Practitioner Family
DX: N39.0 Urinary tract infection, site not specified (principal)

== ENCOUNTER 2018-11-08 14:00 | Outpatient (RCR) | payer MEDICARE, MEDICAID ==
[~2018-11-08 14:00] MED LIST changes: -OMEP1CAP73 PO; +OMEP20CA4 PO; -PRIL20TA2 PO
== END 2018-11-20 ==
LOC: M PT 14:00
PROVIDERS: ATTEND Family Medicine
DX: R55 Syncope and collapse (principal)

== ENCOUNTER → 2019-02-08 | Outpatient (REF) | payer MEDICARE, MEDICAID ==
[~2019-02-08] MED LIST changes: +OMEP-172 PO; -OMEP20CA4 PO; +PRIL20TA2 PO
== END ==
LOC: M LAB REF 16:04
PROVIDERS: ATTEND Nurse Practitioner Family
DX: R21 Rash and other nonspecific skin eruption (principal); L08.9 Local infection of the skin and subcutaneous tissue, unspecified

== ENCOUNTER → 2019-03-06 | Outpatient (CLI) | payer MEDICARE, MEDICAID ==
[~2019-03-06] MED LIST changes: -OMEP-172 PO; +OMEP1CAP73 PO
== END ==
LOC: M LRY 09:02
PROVIDERS: ATTEND Nurse Practitioner Family
DX: Z53.9 Procedure and treatment not carried out, unspecified reason (principal)

== ENCOUNTER → 2019-04-12 | Outpatient (CLI) | payer MEDICARE, MEDICAID ==
--- NOTE | 2019-04-12 10:02 | REPMRS ---
Patient History The patient states she has not had a clinical breast exam in over a year. No known family history of cancer. Digital Woman Screen Mammo: April 12, 2019 - Exam #: [id number] Bilateral CC and MLO view(s) were taken. Technologist: Annie Gong Technologist Prior study comparison: January 02, 2018, bilateral digital woman screen mammo performed at [facility]. October 14, 2016, digital woman screen mammo performed at [facility]. October 14, 2015, digital woman screen mammo performed at [facility]. FINDINGS: There are scattered fibroglandular densities. There has been no change in the appearance of the mammogram from the prior studies. There is a mild amount of scattered fibroglandular density which is fairly symmetric. There is no interval development of dominant mass, architectural distortion, or grouped microcalcification suggestive of malignancy. 3-D tomosynthesis shows no additional findings. Assessment: BI-RADS/ACR category 1 mammogram. Negative Mammogram. Recommendation Routine screening mammogram of both breasts in 1 year (for women over age 40). This patient's Lifetime Breast Cancer Risk is estimated at 3.9 %. This mammogram was interpreted with the aid of an FDA-approved computer-aided dectection system. Electronically Signed By: Santos Jensen MD 04/12/19 [id number]
--- NOTE | 2019-04-17 09:42 | DEXA ---
AP SPINE L1 - L4 1.073 -1.0 0.7 LT FEMUR TOTAL Left hip replacement. LT NECK Left hip replacement. RT FEMUR TOTAL 0.752 -2.0 -0.4 RT NECK 0.671 -2.6 -0.8 TOTAL BODY TOTAL OTHER COMMENTS: There is low bone density of the spine. There is osteoporosis of the right hip. The density of the spine has increased 16.1% since the initial exam on 09/24/2008. The spine density has decreased 4.2% since the most recent exam on 11/19/2016. Left hip replacement. The density of the right hip has increased 0.8% since the initial exam on 09/24/2008. The density of the right hip has decreased 1.2% since the most recent exam on 11/19/2016. FOLLOW-UP: Recommendation for the next bone density exam: 2 years. ERMA
== END ==
LOC: M WHC 08:55
PROVIDERS: ATTEND Family Medicine
DX: Z12.31 Encounter for screening mammogram for malignant neoplasm of breast (principal); M81.0 Age-related osteoporosis without current pathological fracture; M81.8 Other osteoporosis without current pathological fracture

== ENCOUNTER → 2019-04-25 | Outpatient (CLI) | payer MEDICARE, MEDICAID | LOC: M LRY 18:41 | PROVIDERS: ATTEND Physician Assistant Medical | DX: R56.9 Unspecified convulsions (principal) ==

== ENCOUNTER → 2019-07-02 | Outpatient (CLI) | payer MEDICARE, MEDICAID ==
[2019-07-03 11:44] LABS: BASO # 0.1 10^3/uL (0.0-0.2); BASO % 0.4 % (0.0-1.0); EOS # 0.1 10^3/uL (0.0-0.5); EOS % 0.7 % (0.0-3.0); HEMATOCRIT 35.9 % (36.0-47.0); HEMOGLOBIN 11.9 g/dl (12.0-15.5); LYMPH # 9.3 10^3/uL (1.5-5.0); LYMPH % 67.1 % (24.0-44.0); MEAN CORPUSCULAR HEMOGLOBIN 30.1 pg (27.0-33.0); MEAN CORPUSCULAR HGB CONC 33.1 g/dl (32.0-36.5); MEAN CORPUSCULAR VOLUME 90.7 fl (80.0-96.0); MONO # 0.8 10^3/uL (0.0-0.8); MONO % 5.5 % (0.0-5.0); NEUTROPHILS # 3.6 10^3/uL (1.5-8.5); NEUTROPHILS % 26.1 % (36.0-66.0); PLATELET COUNT, AUTOMATED 243 10^3/uL (150-450); RED BLOOD COUNT 3.96 10^6/uL (4.00-5.40)
[2019-07-03 11:45] LABS: WHITE BLOOD COUNT 13.9 10^3/uL (4.0-10.0)
[2019-07-03 12:18] LABS: ALBUMIN 3.3 GM/DL (3.2-5.2); ALT/SGPT 40 U/L (12-78); BILIRUBIN,TOTAL 0.2 MG/DL (0.2-1.0); BLOOD UREA NITROGEN 13 MG/DL (7-18); CALCIUM LEVEL 9.1 MG/DL (8.8-10.2); CARBON DIOXIDE LEVEL 32 MEQ/L (21-32); CHLORIDE LEVEL 97 MEQ/L (98-107); CREATININE FOR GFR 0.53 MG/DL (0.55-1.30); GLOMERULAR FILTRATION RATE > 60.0 (>39); GLUCOSE, FASTING 101 MG/DL (70-100); IMMUNOGLOBULIN A 33.8 MG/DL (70-400); IMMUNOGLOBULIN G 649 MG/DL (681-1648); IMMUNOGLOBULIN M 51.2 MG/DL (40-230); POTASSIUM SERUM 4.2 MEQ/L (3.5-5.1); SODIUM LEVEL 133 MEQ/L (136-145); TOTAL PROTEIN 6.2 GM/DL (6.4-8.2)
== END ==
LOC: M LRY 16:41
PROVIDERS: ATTEND Nurse Practitioner Family
DX: C91.10 Chronic lymphocytic leukemia of B-cell type not having achieved remission (principal)

== ENCOUNTER → 2019-07-26 | Outpatient (REF) | payer MEDICARE, MEDICAID | LOC: M LAB REF 17:19 | PROVIDERS: ATTEND Nurse Practitioner Family | DX: N76.0 Acute vaginitis (principal) ==

== ENCOUNTER → 2019-11-02 | Outpatient (CLI) | payer MEDICARE, MEDICAID ==
[~2019-11-02] MED LIST changes: +GASTROGRAFIN SOLUTION 30ML (Q9963) As Ordered ONE; +ISOVUE-370 76% 100ML VIAL As Ordered ONE; +VITA50005 PO
--- NOTE | 2019-11-20 15:25 | REP ---
CONTRAST ENHANCED CT OF THE ABDOMEN AND PELVIS CLINICAL: Follow up B cell lymphoma. TECHNIQUE: Axial contrast enhanced images from the lung bases to the pubic symphysis using oral (per protocol) and 100 cc Isovue-370 intravenous contrast material with coronal and sagittal reformations. COMPARISON: None. FINDINGS: Hepatomegaly suggested with the liver measuring approximately 19.5 cm in craniocaudal length. No focal hepatic lesions are identified. The spleen is upper limits of normal in size and includes a 17 mm hyper enhancing lesion towards the dome which may represent small hemangioma. Pancreas, bilateral adrenal glands, and kidneys are essentially normal. Bilateral renal hypodensities most compatible with cysts. Soft tissue in the region of the peng hepatis and right upper quadrant is suggestive of adenopathy with lymph nodes measuring up to 3 cm diameter (images 27-46). The enteric system is without obstruction or acute inflammatory process. Normal terminal ileum and appendix identified in the right lower quadrant. Few scattered sigmoid diverticula noted without acute diverticulitis. Pelvis demonstrates normal bladder and age appropriate uterus/adnexa. Fat containing bilateral inguinal hernias noted. No ascites. No free air. No significant retroperitoneal adenopathy. Abdominal aorta demonstrates atherosclerotic changes without aneurysm or dissection. Musculoskeletal structures demonstrate degenerative changes. IMPRESSION: * Conglomerate soft tissue in the region of the peng hepatis/right upper quadrant concerning for adenopathy with lymph nodes measuring up to 3 cm diameter. * A 1.7 cm hyper enhancing lesion in the spleen likely representing hemangioma. * Hepatomegaly without focal hepatic lesion. * Presumed bilateral renal cysts (left greater than right). MTDD
--- NOTE | 2019-11-20 15:26 | REP ---
CONTRAST ENHANCED CHEST CT CLINICAL: Follow-up B-cell lymphoma. TECHNIQUE: Axial contrast enhanced images from the thoracic inlet to the upper abdomen with coronal and sagittal reformations using 100 mL Isovue-370 intravenous contrast material followed by CT of the abdomen and pelvis. COMPARISON: 01/11/2017. FINDINGS: The bilateral lung estrada are well-aerated and clear. No consolidation, suspicious nodule, or mass lesion. No effusion or pneumothorax. Tracheobronchial tree is patent. There is no evidence for axillary, hilar, or mediastinal adenopathy. Further evaluation of the mediastinum demonstrates atherosclerotic changes to the thoracic aorta and coronary arteries without aortic aneurysm or cardiomegaly. No pericardial effusion. Enlarged heterogeneous left thyroid lobe is again noted and unchanged. Surrounding musculoskeletal structures are intact and without acute osseous abnormality. Degenerative changes are noted including osteopenia osteophytosis, endplate sclerosis, and disc space narrowing. Limited upper abdomen demonstrates stable hyperplastic changes to the bilateral adrenal glands. IMPRESSION: * No acute mediastinal or pleural parenchymal process. * No adenopathy. * Heterogeneous enlarged left thyroid gland unchanged from 2017. MTDD
== END ==
LOC: M RAD 08:15
PROVIDERS: ATTEND Internal Medicine Medical Oncology
DX: C85.10 Unspecified B-cell lymphoma, unspecified site (principal); D73.89 Other diseases of spleen; R16.0 Hepatomegaly, not elsewhere classified
CPT/HCPCS: 71260; 74177; Q9963; Q9967

== ENCOUNTER → 2020-01-02 | Outpatient (CLI) | payer MEDICARE, MEDICAID ==
[~2020-01-02] MED LIST changes: -GASTROGRAFIN SOLUTION 30ML (Q9963) As Ordered ONE; -ISOVUE-370 76% 100ML VIAL As Ordered ONE
== END ==
LOC: M WUC 16:50
PROVIDERS: ATTEND Physician Assistant Medical
DX: R56.9 Unspecified convulsions (principal)

== ENCOUNTER → 2020-01-28 | Outpatient (CLI) | payer MEDICARE, MEDICAID ==
[~2020-01-28] MED LIST changes: +GASTROGRAFIN SOLUTION 30ML (Q9963) As Ordered ONE; +ISOVUE-370 76% 100ML VIAL As Ordered ONE
--- NOTE | 2020-01-28 16:54 | REP ---
INDICATION: F/U LYMPHOMA. COMPARISON: 11/02/2019. TECHNIQUE: The study is performed without IV contrast and with bowel contrast. FINDINGS: The visualized lung estrada are unremarkable. The hepatic parenchyma is homogeneous. There is confluent adenopathy in the peng hepatis as previously measuring up to 3.0 cm in diameter. This is unchanged. I suspect the liver is normal size measuring 11.1 cm craniocaudad in the midclavicular line. No focal hepatic lesions are identified. The pancreas is unremarkable. The spleen is normal size measuring up to 13 cm AP diameter and 12 cm craniocaudad diameter. There is a focal enhancing lesion superiorly in the spleen measuring up to 2.0 cm, not significantly changed. Additionally, there is a focal enhancing lesion posteriorly in the spleen measuring up to 1 cm, also not significantly changed. These are likely splenic hemangiomas. No focal splenic lesions are identified. The adrenals are unremarkable. There is an exophytic 1.4 cm left renal cortical cyst, unchanged. There is a 2.5 cm left renal parapelvic cyst, unchanged. The kidneys are otherwise unremarkable. The abdominal aorta is unremarkable. There is no periaortic adenopathy or mass. There is no mesenteric adenopathy. There is no ascites. Pelvis: There is no adenopathy or ascites. The uterus, adnexa and bladder are unremarkable. The pelvic bowel loops are unremarkable. No lytic, blastic destructive skeletal lesions are identified. Side there is internal fixation of the left hip with 3 orthopedic screws. This is unchanged. IMPRESSION: There is no change in the peng hepatis lymphadenopathy. There is no other intraperitoneal or retroperitoneal adenopathy. There is no ascites Liver and spleen are normal size. No focal hepatic lesions. There are 2 enhancing splenic lesions, likely hemangiomas, unchanged. Stable left renal cysts. Internal fixation of the left hip. <Electronically signed by Agustín Moreland > 01/28/20 2917
== END ==
LOC: M RAD 10:43
PROVIDERS: ATTEND Internal Medicine Medical Oncology
DX: C91.00 Acute lymphoblastic leukemia not having achieved remission (principal)
CPT/HCPCS: 74177; Q9963; Q9967

== ENCOUNTER → 2020-04-22 | Outpatient (CLI) | payer MEDICARE, MEDICAID ==
[~2020-04-22] MED LIST changes: -CALC500C PO; -GASTROGRAFIN SOLUTION 30ML (Q9963) As Ordered ONE; -ISOVUE-370 76% 100ML VIAL As Ordered ONE; +POTA20TA6 PO; +RA A500C4 PO
--- NOTE | 2020-04-22 10:56 | REPMRS ---
Patient History The patient states she has not had a clinical breast exam in over a year. No known family history of cancer. 3D TOMOSYNTHESIS WAS PERFORMED. [facility] lifetime risk for breast cancer is 3.7%. Volpara breast density b. Digital Woman Screen Mammo: April 22, 2020 - Exam #: [id number] Bilateral CC and MLO view(s) were taken. Technologist: Sho Cline RT Prior study comparison: April 12, 2019, bilateral digital woman screen mammo performed at [facility]. January 02, 2018, bilateral digital woman screen mammo performed at [facility]. FINDINGS: There are scattered fibroglandular densities. There has been no change in the appearance of the mammogram from the prior studies. There is a mild amount of residual fibroglandular tissue which is fairly symmetric. There is no interval development of dominant mass, architectural distortion, or clustered microcalcification suggestive of malignancy. Assessment: BI-RADS/ACR category 1 mammogram. Negative Mammogram. Recommendation Routine screening mammogram in 1 year (for women over age 40). This mammogram was interpreted with the aid of an FDA-approved computer-aided dectection system. Electronically Signed By: Agustín Enrique MD 04/22/20 [id number]
== END ==
LOC: M WHC 09:59
PROVIDERS: ATTEND Student in an Organized Health Care Education/Training Program
DX: Z12.31 Encounter for screening mammogram for malignant neoplasm of breast (principal)

== ENCOUNTER → 2020-07-08 | Outpatient (CLI) | payer MEDICARE, MEDICAID ==
[~2020-07-08] MED LIST changes: +ZOLO100T PO
--- NOTE | 2020-07-08 14:28 | REP ---
INDICATION: EPILEPSY W/ IMPAIRMENT. COMPARISON: Comparison CT study of the brain is from October 07, 2018.. TECHNIQUE: Helical scanning is acquired. 5 mm axial images were reformatted. Coronal MPR images were generated. FINDINGS: Digital preliminary finish rolls operator radiograph demonstrates a large metallic craniotomy prosthesis. Axial CT images demonstrate that this metallic craniectomy or craniotomy prosthesis is in place in the right frontal and right parietal region. This cast substantial spray artifact obscuring the frontal lobes and some of the temporal lobes bilaterally. There is significant image degradation associated with this. There is encephalomalacia visible in the right temporal lobe which appears to be unchanged. There is enlargement of the right temporal horn of the lateral ventricle also unchanged from the September 2018 prior study. No midline shift is evident. No other acute bony abnormality is seen. The visualized paranasal sinuses are clear. No intraorbital abnormality is seen. IMPRESSION: Status post right frontoparietal craniotomy with large metallic calvarial prosthesis producing substantial image degradation due to spray artifact. There is an cephalo malacia in the right temporal lobe and enlargement of the right temporal occipital horn of the right lateral ventricle is seen unchanged from 2019. No acute intracranial abnormality is observed.. <Electronically signed by Santos Jensen > 07/08/20 [id number]
== END ==
LOC: M RAD 13:56
PROVIDERS: ATTEND Physician Assistant Medical
DX: G40.309 Generalized idiopathic epilepsy and epileptic syndromes, not intractable, without status epilepticus (principal); G31.84 Mild cognitive impairment of uncertain or unknown etiology; Z98.890 Other specified postprocedural states

== ENCOUNTER → 2020-12-11 | Outpatient (CLI) | payer MEDICARE, MEDICAID ==
[~2020-12-11] MED LIST changes: +ERGO500029 PO; +STEL90IN SC; -VITA50005 PO; +VITA500C24 PO
[2020-12-11 09:39] LABS: HEMATOCRIT 38.3 % (36.0-47.0); HEMOGLOBIN 12.8 g/dl (12.0-15.5); MEAN CORPUSCULAR HEMOGLOBIN 31.4 pg (27.0-33.0); MEAN CORPUSCULAR HGB CONC 33.4 g/dl (32.0-36.5); MEAN CORPUSCULAR VOLUME 94.1 fl (80.0-96.0); PLATELET COUNT, AUTOMATED 247 10^3/uL (150-450); RED BLOOD COUNT 4.07 10^6/uL (4.00-5.40); WHITE BLOOD COUNT 11.6 10^3/uL (4.0-10.0)
[2020-12-11 10:00] LABS: HEMOGLOBIN A1c 5.1 %
[2020-12-11 10:15] LABS: PHENYTOIN (DILANTIN) 19.6 UG/ML (10.0-20.0); RHEUMATOID FACTOR QUANT < 10.0 IU/ML (<15.0); THYROID STIMULATING HORMONE 0.725 uIU/ML (0.358-3.740)
[2020-12-11 10:21] LABS: ATYPICAL LYMPH 4 % (0-5); LYMPHOCYTES 63 % (16-44); MONOCYTES 2 % (0-5); NEUTROPHILS 31 % (28-66); PLATELET ESTIMATE NORMAL (NORMAL)
[2020-12-11 10:34] LABS: ERYTHROCYTE SEDIMENTATION RATE 17 mm/hr (0-30)
[2020-12-11 13:15] LABS: VITAMIN B12 LEVEL 480 PG/ML (247-911)
[2020-12-11 13:17] LABS: FOLATE 4.5 NG/ML (>5.4)
[2020-12-12 12:08] LABS: ANTINUCLEAR ANTIBODIES DIRECT Negative (Negative)
== END ==
LOC: M WUC 08:29
PROVIDERS: ATTEND Physician Assistant Medical
DX: R41.3 Other amnesia (principal); R56.9 Unspecified convulsions; E78.5 Hyperlipidemia, unspecified; I10 Essential (primary) hypertension; Z51.81 Encounter for therapeutic drug level monitoring; Z79.899 Other long term (current) drug therapy

== ENCOUNTER → 2020-12-11 | Outpatient (CLI) | payer MEDICARE, MEDICAID ==
[2020-12-11 09:45] LABS: HEMATOCRIT 38.7 % (36.0-47.0); HEMOGLOBIN 12.9 g/dl (12.0-15.5); MEAN CORPUSCULAR HEMOGLOBIN 31.3 pg (27.0-33.0); MEAN CORPUSCULAR HGB CONC 33.3 g/dl (32.0-36.5); MEAN CORPUSCULAR VOLUME 93.9 fl (80.0-96.0); PLATELET COUNT, AUTOMATED 239 10^3/uL (150-450); RED BLOOD COUNT 4.12 10^6/uL (4.00-5.40); WHITE BLOOD COUNT 11.7 10^3/uL (4.0-10.0)
[2020-12-11 10:09] LABS: BLOOD UREA NITROGEN 9 MG/DL (7-18); CALCIUM LEVEL 9.3 MG/DL (8.8-10.2); CARBON DIOXIDE LEVEL 33 MEQ/L (21-32); CHLORIDE LEVEL 97 MEQ/L (98-107); CHOLESTEROL LEVEL 184 MG/DL (<200); CHOLESTEROL RISK RATIO 1.877 (<5); CREATININE FOR GFR 0.58 MG/DL (0.55-1.30); GLOMERULAR FILTRATION RATE > 60.0 (>39); GLUCOSE, FASTING 94 MG/DL (70-100); HDL CHOLESTEROL 98 MG/DL (>40); LDL CHOLESTEROL 78 MG/DL (<100); NON-HDL-C 86 MG/DL; POTASSIUM SERUM 4.1 MEQ/L (3.5-5.1); SODIUM LEVEL 134 MEQ/L (136-145); TRIGLYCERIDES LEVEL 40 MG/DL (<150)
[2020-12-11 10:24] LABS: ATYPICAL LYMPH 4 % (0-5); LYMPHOCYTES 63 % (16-44); MONOCYTES 2 % (0-5); NEUTROPHILS 31 % (28-66)
[2020-12-11 10:25] LABS: PLATELET ESTIMATE NORMAL (NORMAL)
== END ==
LOC: M WUC 08:27
PROVIDERS: ATTEND Student in an Organized Health Care Education/Training Program
DX: E78.5 Hyperlipidemia, unspecified (principal); I10 Essential (primary) hypertension

== ENCOUNTER 2021-02-20 16:21 | Emergency (ER) | payer MEDICARE, MEDICAID ==
[~2021-02-20] VITALS: Ht 149.9 cm; Wt 51.4 kg
[2021-02-20 16:37] VITALS: BP 180/78
[2021-02-20] MEDS ORDERED: DERMABOND TOPICAL SKIN ADHESIVE TOP ONE (16:45)
[2021-02-20] MEDS ORDERED: BOOSTRIX/ADACEL VACCINE (DIPHTH/PERTUSS/ACELL/TETANUS) 0.5ML SYR IM ONE (17:00)
--- NOTE | 2021-02-20 17:07 | REP ---
INDICATION: trauma COMPARISON: 07/08/2020 TECHNIQUE: Axial noncontrast images from the skull base to the thoracic inlet with coronal reformations. This CT examination was performed using the following dose reduction techniques: Automated exposure control, adjustment of mA and/or kv according to the patient's size, and use of iterative reconstruction technique. FINDINGS: The examination is nearly nondiagnostic due to extensive beam hardening artifact from large right craniotomy and calvarial prosthesis. 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 No obvious acute intracranial hemorrhage or extra-axial collection. IMPRESSION: Extremely limited/nearly nondiagnostic examination. No acute process identified. <Electronically signed by Rashaun Nevarez > 02/20/21 [id number]
--- NOTE | 2021-02-20 17:11 | REP ---
INDICATION: trauma COMPARISON: 10/07/2018 TECHNIQUE: Axial noncontrast images from the skull base to the thoracic inlet with coronal and sagittal re-formations This CT examination was performed using the following dose reduction techniques: Automated exposure control, adjustment of mA and/or kv according to the patient's size, and use of iterative reconstruction technique. FINDINGS: Osteopenia and advanced multilevel degenerative changes include osteophytosis, endplate sclerosis, disc space narrowing and facet arthropathy along with exaggerated lordosis. Alignment is maintained. There is no evidence for acute fracture/compression injury or subluxation. Spinal canal is patent. Paravertebral soft tissues are normal. IMPRESSION: Osteopenia and multilevel degenerative spondylosis. No evidence for acute pathology or trauma/injury. <Electronically signed by Rashaun Nevarez > 02/20/21 [id number]
[2021-02-20] MEDS ORDERED: ACETAMINOPHEN 325 MG TAB PO ONE (17:40)
== END 2021-02-20 18:22 | disposition home or self-care (01) ==
LOC: M ED 16:21 → EDBD 16:21 → M ED 18:22
DX: S01.511A Laceration without foreign body of lip, initial encounter (principal); W18.39XA Other fall on same level, initial encounter; Y92.89 Other specified places as the place of occurrence of the external cause; I10 Essential (primary) hypertension; E78.9 Disorder of lipoprotein metabolism, unspecified; F70 Mild intellectual disabilities; R56.9 Unspecified convulsions; Z87.820 Personal history of traumatic brain injury; Z79.899 Other long term (current) drug therapy; Z79.82 Long term (current) use of aspirin

== ENCOUNTER → 2021-03-18 | Outpatient (CLI) | payer MEDICARE, MEDICAID ==
[~2021-03-18] MED LIST changes: -CEFD1CAP8 PO; +CEFD300C41 PO; +CICL6.6S TOP; -CICL8SOL3 TOP; +POTA-151 PO; -POTA20TA6 PO
[2021-03-18 09:54] LABS: HEMATOCRIT 40.4 % (36.0-47.0); HEMOGLOBIN 13.5 g/dl (12.0-15.5); MEAN CORPUSCULAR HEMOGLOBIN 31.9 pg (27.0-33.0); MEAN CORPUSCULAR HGB CONC 33.4 g/dl (32.0-36.5); MEAN CORPUSCULAR VOLUME 95.5 fl (80.0-96.0); PLATELET COUNT, AUTOMATED 241 10^3/uL (150-450); RED BLOOD COUNT 4.23 10^6/uL (4.00-5.40)
[2021-03-18 10:24] LABS: ATYPICAL LYMPH 17 % (0-5); BASOPHILS 2 % (0-1); EOSINOPHILS 1 % (0-3); LYMPHOCYTES 37 % (16-44); MONOCYTES 5 % (0-5); NEUTROPHILS 38 % (28-66); OVALOCYTES 1+; PLATELET ESTIMATE NORMAL (NORMAL)
[2021-03-18 10:33] LABS: ALBUMIN 3.5 GM/DL (3.2-5.2); ALT/SGPT 35 U/L (12-78); BILIRUBIN,DIRECT 0.1 MG/DL (0.0-0.2); BILIRUBIN,TOTAL 0.3 MG/DL (0.2-1.0); BLOOD UREA NITROGEN 9 MG/DL (7-18); CARBON DIOXIDE LEVEL 32 MEQ/L (21-32); CHLORIDE LEVEL 100 MEQ/L (98-107); CREATININE FOR GFR 0.48 MG/DL (0.55-1.30); GLOMERULAR FILTRATION RATE > 60.0 (>39); GLUCOSE, FASTING 95 MG/DL (70-100); PHOSPHORUS LEVEL 3.5 MG/DL (2.5-4.9); SODIUM LEVEL 137 MEQ/L (136-145); TOTAL PROTEIN 6.4 GM/DL (6.4-8.2)
[2021-03-18 10:41] LABS: HEPATITIS B SURFACE ANTIBODY POSITIVE (POSITIVE)
[2021-03-18 11:21] LABS: HIV 1&2 SCREEN CENTAUR NEGATIVE (NEGATIVE)
== END ==
LOC: M WUC 08:20
PROVIDERS: ATTEND Family Medicine
DX: L40.0 Psoriasis vulgaris (principal); D72.820 Lymphocytosis (symptomatic)

== ENCOUNTER → 2021-03-18 | Outpatient (CLI) | payer MEDICARE, MEDICAID ==
[2021-03-18 09:54] LABS: HEMATOCRIT 40.5 % (36.0-47.0); HEMOGLOBIN 13.5 g/dl (12.0-15.5); MEAN CORPUSCULAR HEMOGLOBIN 31.7 pg (27.0-33.0); MEAN CORPUSCULAR HGB CONC 33.3 g/dl (32.0-36.5); MEAN CORPUSCULAR VOLUME 95.1 fl (80.0-96.0); PLATELET COUNT, AUTOMATED 239 10^3/uL (150-450); RED BLOOD COUNT 4.26 10^6/uL (4.00-5.40); WHITE BLOOD COUNT 12.3 10^3/uL (4.0-10.0)
[2021-03-18 10:25] LABS: ATYPICAL LYMPH 17 % (0-5); BASOPHILS 2 % (0-1); EOSINOPHILS 1 % (0-3); LYMPHOCYTES 37 % (16-44); MONOCYTES 5 % (0-5); NEUTROPHILS 38 % (28-66); OVALOCYTES 1+; PLATELET ESTIMATE NORMAL (NORMAL)
== END ==
LOC: M WUC 08:24
PROVIDERS: ATTEND Physician Assistant Medical
DX: D72.820 Lymphocytosis (symptomatic) (principal)

== ENCOUNTER → 2021-06-05 | Outpatient (CLI) | payer MEDICARE, MEDICAID ==
[~2021-06-05] MED LIST changes: +CLOB0.0548; +MEMA10TA19 PO
== END ==
LOC: M WUC 15:45
DX: S30.0XXA Contusion of lower back and pelvis, initial encounter (principal); W18.00XA Striking against unspecified object with subsequent fall, initial encounter; M51.37 Other intervertebral disc degeneration, lumbosacral region; Y92.9 Unspecified place or not applicable; Y93.9 Activity, unspecified; Y99.9 Unspecified external cause status

== ENCOUNTER → 2021-06-17 | Outpatient (CLI) | payer MEDICARE, MEDICAID | LOC: M WHC 12:38 | PROVIDERS: ATTEND Student in an Organized Health Care Education/Training Program | DX: Z12.31 Encounter for screening mammogram for malignant neoplasm of breast (principal) ==

== ENCOUNTER → 2022-08-10 | Outpatient (CLI) | payer MEDICARE, MEDICAID ==
[~2022-08-10] MED LIST changes: +SIMV-252 PO; -ZOCO10TA PO
[2022-08-10 10:00] LABS: APPEARANCE, URINE HAZY (CLEAR); BACTERIA, URINE AUTO 1+ (NEGATIVE); BILIRUBIN, URINE AUTO NEGATIVE (NEGATIVE); BLOOD, URINE BLOOD NEGATIVE (NEGATIVE); COLOR, URINE YELLOW (YELLOW); GLUCOSE, URINE (UA) AUTO NEGATIVE (NEGATIVE); KETONE, URINE AUTO NEGATIVE (NEGATIVE); LEUKOCYTE ESTERASE, URINE AUTO 2+ (NEGATIVE); MUCUS, URINE SMALL (NEGATIVE); NITRITE, URINE AUTO POSITIVE (NEGATIVE); PROTEIN, URINE AUTO NEGATIVE (NEGATIVE); RBC, URINE AUTO 2 /HPF (0-3); SPECIFIC GRAVITY URINE AUTO 1.012 (1.002-1.035); SQUAMOUS EPITHELIAL CELL UR AU 1 /HPF (0-6); UROBILINOGEN, URINE AUTO 0.2 mg/dL (0.0-2.0); WBC, URINE AUTO 7 /HPF (0-3)
== END ==
LOC: M WUC 08:40
PROVIDERS: ATTEND Student in an Organized Health Care Education/Training Program
DX: R39.9 Unspecified symptoms and signs involving the genitourinary system (principal)

== ENCOUNTER → 2022-12-02 | Outpatient (CLI) | payer MEDICARE, MEDICAID ==
[~2022-12-02] MED LIST changes: +ACET325T43 PO; -CEFD300C41 PO; +CEFD300C42 PO; +LATANOPROST; +PHEN30CA
[2022-12-02 11:03] LABS: HEMATOCRIT 40.8 % (36.0-47.0); HEMOGLOBIN 13.4 g/dl (12.0-15.5); MEAN CORPUSCULAR HEMOGLOBIN 30.9 pg (27.0-33.0); MEAN CORPUSCULAR HGB CONC 32.8 g/dl (32.0-36.5); MEAN CORPUSCULAR VOLUME 94.2 fl (80.0-96.0); PLATELET COUNT, AUTOMATED 276 10^3/uL (150-450); RED BLOOD COUNT 4.33 10^6/uL (4.00-5.40); WHITE BLOOD COUNT 17.1 10^3/uL (4.0-10.0)
[2022-12-02 11:33] LABS: ALBUMIN 3.5 G/DL (3.2-5.2); ALKALINE PHOSPHATASE 148 U/L (46-116); ALT/SGPT 39 U/L (7.0-40); AST/SGOT 21 U/L (<34); ATYPICAL LYMPH 43 % (0-5); BASOPHILS 1 % (0-1); BILIRUBIN,TOTAL 0.4 MG/DL (0.3-1.2); BLOOD UREA NITROGEN 11 MG/DL (9-23); CALCIUM LEVEL 9.2 MG/DL (8.3-10.6); CARBON DIOXIDE LEVEL 28 MMOL/L (20-31); CHLORIDE LEVEL 99 MMOL/L (98-107); CHOLESTEROL LEVEL 171 MG/DL (<200); CHOLESTEROL RISK RATIO 2.35 (<5); CREATININE FOR GFR 0.51 MG/DL (0.55-1.30); GLOMERULAR FILTRATION RATE > 60.0 (>39); GLUCOSE, FASTING 106 MG/DL (74-106); HDL CHOLESTEROL 72.7 MG/DL (>40); LDL CHOLESTEROL 80.5 MG/DL (<100); LYMPHOCYTES 10 % (16-44); MONOCYTES 7 % (0-5); NEUTROPHILS 39 % (28-66); NON-HDL-C 98.3 MG/DL; PLATELET ESTIMATE NORMAL (NORMAL); POTASSIUM SERUM 4.2 MMOL/L (3.5-5.1); SODIUM LEVEL 133 MMOL/L (136-145); TOTAL PROTEIN 6.1 G/DL (5.7-8.2); TRIGLYCERIDES LEVEL 89 MG/DL (<150)
[2022-12-02 11:34] LABS: SMUDGE CELLS 1+
== END ==
LOC: M WUC 08:33
PROVIDERS: ATTEND Student in an Organized Health Care Education/Training Program
DX: Z00.00 Encounter for general adult medical examination without abnormal findings (principal); I10 Essential (primary) hypertension; E78.5 Hyperlipidemia, unspecified

== ENCOUNTER 2023-03-03 08:57 | Inpatient (IN) | payer MEDICARE, MEDICAID ==
[~2023-03-03] VITALS: Ht 162.6 cm; Wt 65.2 kg
[~2023-03-03 08:57] MED LIST changes: +CEFD1CAP9 PO; -CEFD300C42 PO; -PHEN30CA
[2023-03-03] MEDS ORDERED: ISOVUE-370 76% 100ML VIAL As Ordered ONE (09:13)
[2023-03-03 09:35] LABS: HEMATOCRIT 40.9 % (36.0-47.0); HEMOGLOBIN 13.4 g/dl (12.0-15.5); MEAN CORPUSCULAR HEMOGLOBIN 30.2 pg (27.0-33.0); MEAN CORPUSCULAR HGB CONC 32.8 g/dl (32.0-36.5); MEAN CORPUSCULAR VOLUME 92.3 fl (80.0-96.0); PLATELET COUNT, AUTOMATED 295 10^3/uL (150-450); RED BLOOD COUNT 4.43 10^6/uL (4.00-5.40)
[2023-03-03 09:40] LABS: INR 1.08; PROTHROMBIN TIME 13.7 SECONDS (12.5-14.5)
[2023-03-03 09:42] LABS: PARTIAL THROMBOPLASTIN TIME 26.7 SECONDS (24.8-34.2)
[2023-03-03 09:48] LABS: CK-MB VALUE MASS < 1.0 NG/ML (<3.6); ETHYL ALCOHOL (ETHANOL) 0.006 % (0.000-0.010)
[2023-03-03 09:49] LABS: PHENYTOIN (DILANTIN) 7.8 UG/ML (10.0-20.0)
[2023-03-03 09:50] LABS: CPK CREATINE PHOSPHOKINASE 20 U/L (34-145); SALICYLATE LEVEL < 3.0 MG/DL (<30)
[2023-03-03 09:51] LABS: ALKALINE PHOSPHATASE 129 U/L (46-116); ALT/SGPT 38 U/L (7.0-40); AST/SGOT 19 U/L (<34); BILIRUBIN,DIRECT 0.1 MG/DL (<0.4); BILIRUBIN,TOTAL 0.3 MG/DL (0.3-1.2); BLOOD UREA NITROGEN 15 MG/DL (9-23); CALCIUM LEVEL 9.6 MG/DL (8.3-10.6); CARBON DIOXIDE LEVEL 30 MMOL/L (20-31); CHLORIDE LEVEL 103 MMOL/L (98-107); CREATININE FOR GFR 0.66 MG/DL (0.55-1.30); GLOMERULAR FILTRATION RATE > 60.0 (>39); GLUCOSE, FASTING 115 MG/DL (74-106); POTASSIUM SERUM 3.9 MMOL/L (3.5-5.1); SODIUM LEVEL 139 MMOL/L (136-145); TOTAL PROTEIN 5.9 G/DL (5.7-8.2)
[2023-03-03 09:52] LABS: THYROID STIMULATING HORMONE 0.586 uIU/ML (0.55-4.78)
[2023-03-03 10:08] LABS: RSV AMPLIFICATION NEGATIVE (NEGATIVE)
[2023-03-03 10:11] VITALS: BP 154/76; O2SAT 98
[2023-03-03 10:13] LABS: ATYPICAL LYMPH 23 % (0-5); EOSINOPHILS 1 % (0-3); LYMPHOCYTES 50 % (16-44); MONOCYTES 1 % (0-5); NEUTROPHILS 25 % (28-66)
[2023-03-03 10:15] LABS: PLATELET ESTIMATE NORMAL (NORMAL)
[2023-03-03 10:22] LABS: AMPHETAMINES LEVEL URINE NEGATIVE (NEGATIVE); BARBITURATES URINE NEGATIVE (NEGATIVE); BENZODIAZEPINES URINE NEGATIVE (NEGATIVE); CANNABINOIDS URINE NEGATIVE (NEGATIVE); COCAINE METABOLITE URINE NEGATIVE (NEGATIVE); METHADONE URINE NEGATIVE (NEGATIVE); OPIATES URINE NEGATIVE (NEGATIVE); PHENCYCLIDINE URINE NEGATIVE (NEGATIVE)
[2023-03-03] MEDS ORDERED: cefTRIAXone SOD 1 GM in D5W MINI-BAG PLUS 50 ML IV ONE (10:55)
[2023-03-03 11:01] LABS: CK-MB VALUE MASS < 1.0 NG/ML (<3.6)
[2023-03-03 11:03] LABS: CPK CREATINE PHOSPHOKINASE 19 U/L (34-145); MB/CK RELATIVE INDEX 5.26 (< OR =4)
[2023-03-03] MEDS ORDERED: MED REC IN PROGRESS XX SCH (11:40)
[2023-03-03] MEDS ORDERED: MOM 30ML SUSPENSION UDC PO PRN (12:00)
[2023-03-03] MEDS ORDERED: ACETAMINOPHEN TAB 650MG DOSE (2X325MG) PO PRN (12:00)
[2023-03-03] MEDS ORDERED: CLOPIDOGREL 300 MG TAB (PLAVIX) PO STA (12:28)
[2023-03-03] MEDS ORDERED: STEL45IN SC (13:01)
[2023-03-03] MEDS ORDERED: XALA0.007 OU (13:01)
[2023-03-03] MEDS ORDERED: IBAN150T6 PO (13:01)
[2023-03-03] MEDS ORDERED: FOLI1TAB11 PO (13:01)
[2023-03-03] MEDS ORDERED: HOME MED LIST COMPLETE! XX SCH (13:05)
[2023-03-03 13:43] LABS: INR 1.05; PARTIAL THROMBOPLASTIN TIME 24.2 SECONDS (24.8-34.2); PROTHROMBIN TIME 13.4 SECONDS (12.5-14.5)
[2023-03-03 13:55] LABS: CK-MB VALUE MASS < 1.0 NG/ML (<3.6)
[2023-03-03 13:56] LABS: ALBUMIN 3.1 G/DL (3.2-5.2); ALKALINE PHOSPHATASE 133 U/L (46-116); ALT/SGPT 38 U/L (7.0-40); AST/SGOT 18 U/L (<34); BILIRUBIN,TOTAL 0.2 MG/DL (0.3-1.2); BLOOD UREA NITROGEN 14 MG/DL (9-23); CARBON DIOXIDE LEVEL 29 MMOL/L (20-31); CHLORIDE LEVEL 104 MMOL/L (98-107); CHOLESTEROL LEVEL 179 MG/DL (<200); CHOLESTEROL RISK RATIO 2.73 (<5); CREATININE FOR GFR 0.53 MG/DL (0.55-1.30); GLOMERULAR FILTRATION RATE > 60.0 (>39); GLUCOSE, FASTING 107 MG/DL (74-106); HDL CHOLESTEROL 65.4 MG/DL (>40); LDL CHOLESTEROL 95.6 MG/DL (<100); NON-HDL-C 113.6 MG/DL; POTASSIUM SERUM 4.5 MMOL/L (3.5-5.1); SODIUM LEVEL 138 MMOL/L (136-145); TOTAL PROTEIN 5.8 G/DL (5.7-8.2); TRIGLYCERIDES LEVEL 90 MG/DL (<150)
[2023-03-03 13:59] LABS: CPK CREATINE PHOSPHOKINASE 38 U/L (34-145); MB/CK RELATIVE INDEX 2.63 (< OR =4)
[2023-03-03 14:08] LABS: PROCALCITONIN <0.04 ng/ml
[2023-03-03] MEDS: ENOXAPARIN 40MG/0.4ML SYRINGE (J1650 PER 10MG) SC SCH (14:09)
[2023-03-03 20:57] VITALS: BP 153/68; TEMP 96.7; O2SAT 96
[2023-03-03 21:13] VITALS: BP 153/68; TEMP 96.7; O2SAT 96
[2023-03-03 23:50] VITALS: BP 145/68; TEMP 97.4; O2SAT 95
[2023-03-04] VITALS (10 sets, daily range): BP systolic 123–145; BP diastolic 61–68; TEMP 97.4–98.6; O2SAT 90–100
[2023-03-04 06:16] LABS: HEMATOCRIT 41.1 % (36.0-47.0); HEMOGLOBIN 13.3 g/dl (12.0-15.5); MEAN CORPUSCULAR HEMOGLOBIN 30.4 pg (27.0-33.0); MEAN CORPUSCULAR HGB CONC 32.4 g/dl (32.0-36.5); MEAN CORPUSCULAR VOLUME 93.8 fl (80.0-96.0); PLATELET COUNT, AUTOMATED 271 10^3/uL (150-450); RED BLOOD COUNT 4.38 10^6/uL (4.00-5.40); WHITE BLOOD COUNT 10.7 10^3/uL (4.0-10.0)
[2023-03-04 06:36] LABS: BLOOD UREA NITROGEN 13 MG/DL (9-23); CALCIUM LEVEL 9.6 MG/DL (8.3-10.6); CARBON DIOXIDE LEVEL 31 MMOL/L (20-31); CHLORIDE LEVEL 105 MMOL/L (98-107); CREATININE FOR GFR 0.63 MG/DL (0.55-1.30); GLOMERULAR FILTRATION RATE > 60.0 (>39); GLUCOSE, FASTING 106 MG/DL (74-106); POTASSIUM SERUM 4.2 MMOL/L (3.5-5.1); SODIUM LEVEL 140 MMOL/L (136-145)
[2023-03-04] MEDS ORDERED: PHENYTOIN ER 100 MG CAP PO ONE (07:35)
[2023-03-04] MEDS: CALCIUM CARBONATE 500 MG CHEW U/D PO SCH ×2 (08:55→20:24)
[2023-03-04] MEDS: ASCORBIC ACID 500 MG TAB PO SCH (08:55)
[2023-03-04] MEDS: MEMANTINE 5MG TABLET (NAMENDA) PO SCH ×2 (08:55→20:24)
[2023-03-04] MEDS: MULTIVITAMINS/MINERALS THERAP 1 TAB PO SCH (08:56)
[2023-03-04] MEDS: FOLIC ACID 1MG TAB PO SCH (08:56)
[2023-03-04] MEDS: TOLTERODINE TARTRATE 2 MG LA CAP (DETROL LA) PO SCH (08:56)
[2023-03-04] MEDS: CLOPIDOGREL 75 MG TAB PO SCH (08:56)
[2023-03-04] MEDS: DOCUSATE SODIUM 100MG CAPSULE PO SCH (08:56)
[2023-03-04] MEDS: ENOXAPARIN 40MG/0.4ML SYRINGE (J1650 PER 10MG) SC SCH (08:56)
[2023-03-04] MEDS: OMEPRAZOLE 20MG CAP PO SCH (08:56)
[2023-03-04] MEDS ORDERED: PHENYTOIN ER 100 MG CAP PO SCH (09:00)
[2023-03-04] MEDS: cefTRIAXone SOD 1 GM in D5W MINI-BAG PLUS 50 ML IV SCH (11:30)
[2023-03-04] MEDS: SIMVASTATIN 10 MG TAB PO SCH (20:25)
[2023-03-04] MEDS: PHENYTOIN 50MG CHEW TABLET PO SCH (20:25)
[2023-03-04] MEDS: SERTRALINE 100 MG TAB PO SCH (20:25)
[2023-03-04] MEDS: PHENYTOIN ER 100 MG CAP PO SCH (20:25)
[2023-03-04] MEDS: LATANOPROST 0.005% OPHTH SOLN 2.5 ML OU SCH (20:26)
[2023-03-05 03:30] VITALS: BP 144/67; TEMP 98.2; O2SAT 92
[2023-03-05 05:44] LABS: HEMATOCRIT 37.8 % (36.0-47.0); HEMOGLOBIN 12.4 g/dl (12.0-15.5); MEAN CORPUSCULAR HEMOGLOBIN 30.5 pg (27.0-33.0); MEAN CORPUSCULAR HGB CONC 32.8 g/dl (32.0-36.5); MEAN CORPUSCULAR VOLUME 92.9 fl (80.0-96.0); PLATELET COUNT, AUTOMATED 260 10^3/uL (150-450); RED BLOOD COUNT 4.07 10^6/uL (4.00-5.40); WHITE BLOOD COUNT 11.1 10^3/uL (4.0-10.0)
[2023-03-05 05:56] LABS: BLOOD UREA NITROGEN 17 MG/DL (9-23); CALCIUM LEVEL 8.9 MG/DL (8.3-10.6); CARBON DIOXIDE LEVEL 29 MMOL/L (20-31); CHLORIDE LEVEL 106 MMOL/L (98-107); CREATININE FOR GFR 0.66 MG/DL (0.55-1.30); GLOMERULAR FILTRATION RATE > 60.0 (>39); GLUCOSE, FASTING 120 MG/DL (74-106); POTASSIUM SERUM 4.3 MMOL/L (3.5-5.1); SODIUM LEVEL 141 MMOL/L (136-145)
[2023-03-05 07:13] VITALS: BP 135/63; TEMP 97.5; O2SAT 93
[2023-03-05] MEDS: CLOPIDOGREL 75 MG TAB PO SCH (09:29)
[2023-03-05] MEDS: OMEPRAZOLE 20MG CAP PO SCH (09:30)
[2023-03-05] MEDS: ENOXAPARIN 40MG/0.4ML SYRINGE (J1650 PER 10MG) SC SCH (09:30)
[2023-03-05] MEDS: TOLTERODINE TARTRATE 2 MG LA CAP (DETROL LA) PO SCH (09:30)
[2023-03-05] MEDS: FOLIC ACID 1MG TAB PO SCH (09:30)
[2023-03-05] MEDS: CALCIUM CARBONATE 500 MG CHEW U/D PO SCH ×2 (09:30→20:06)
[2023-03-05] MEDS: MEMANTINE 5MG TABLET (NAMENDA) PO SCH ×2 (09:30→20:06)
[2023-03-05] MEDS: MULTIVITAMINS/MINERALS THERAP 1 TAB PO SCH (09:30)
[2023-03-05] MEDS: ASCORBIC ACID 500 MG TAB PO SCH (09:30)
[2023-03-05] MEDS: DOCUSATE SODIUM 100MG CAPSULE PO SCH (09:33)
[2023-03-05] MEDS: PHENYTOIN ER 100 MG CAP PO SCH ×2 (09:33→20:06)
[2023-03-05] MEDS: cefTRIAXone SOD 1 GM in D5W MINI-BAG PLUS 50 ML IV SCH (11:22)
[2023-03-05 12:41] VITALS: BP 120/64; TEMP 97.9; O2SAT 94
[2023-03-05 17:20] VITALS: BP 145/77; TEMP 98.1; O2SAT 98
[2023-03-05] MEDS ORDERED: PHEN50TA PO (17:56)
[2023-03-05] MEDS ORDERED: CLOP75TA2 PO (17:56)
[2023-03-05] MEDS ORDERED: CEFD300CAP PO (17:56)
[2023-03-05 19:22] VITALS: BP 140/72; TEMP 98; O2SAT 97
[2023-03-05] MEDS: LATANOPROST 0.005% OPHTH SOLN 2.5 ML OU SCH (20:05)
[2023-03-05] MEDS: SIMVASTATIN 10 MG TAB PO SCH (20:06)
[2023-03-05] MEDS: PHENYTOIN 50MG CHEW TABLET PO SCH (20:06)
[2023-03-05] MEDS: SERTRALINE 100 MG TAB PO SCH (20:06)
[2023-03-06 05:13] LABS: HEMATOCRIT 36.3 % (36.0-47.0); MEAN CORPUSCULAR HEMOGLOBIN 30.8 pg (27.0-33.0); MEAN CORPUSCULAR HGB CONC 33.1 g/dl (32.0-36.5); MEAN CORPUSCULAR VOLUME 93.3 fl (80.0-96.0); PLATELET COUNT, AUTOMATED 240 10^3/uL (150-450); RED BLOOD COUNT 3.89 10^6/uL (4.00-5.40); WHITE BLOOD COUNT 11.4 10^3/uL (4.0-10.0)
[2023-03-06 05:30] LABS: BLOOD UREA NITROGEN 15 MG/DL (9-23); CALCIUM LEVEL 9.1 MG/DL (8.3-10.6); CARBON DIOXIDE LEVEL 29 MMOL/L (20-31); CHLORIDE LEVEL 106 MMOL/L (98-107); CREATININE FOR GFR 0.64 MG/DL (0.55-1.30); GLOMERULAR FILTRATION RATE > 60.0 (>39); GLUCOSE, FASTING 107 MG/DL (74-106); POTASSIUM SERUM 4.4 MMOL/L (3.5-5.1); SODIUM LEVEL 141 MMOL/L (136-145)
[2023-03-06 07:37] VITALS: BP 128/93; TEMP 97.3; O2SAT 95
[2023-03-06] MEDS ORDERED: PROBCAP14 PO (09:29)
[2023-03-06] MEDS: MEMANTINE 5MG TABLET (NAMENDA) PO SCH (09:55)
[2023-03-06] MEDS: ASCORBIC ACID 500 MG TAB PO SCH (09:55)
[2023-03-06] MEDS: CALCIUM CARBONATE 500 MG CHEW U/D PO SCH (09:55)
[2023-03-06] MEDS: MULTIVITAMINS/MINERALS THERAP 1 TAB PO SCH (09:55)
[2023-03-06] MEDS: PHENYTOIN ER 100 MG CAP PO SCH (09:55)
[2023-03-06] MEDS: CLOPIDOGREL 75 MG TAB PO SCH (09:55)
[2023-03-06] MEDS: DOCUSATE SODIUM 100MG CAPSULE PO SCH (09:55)
[2023-03-06] MEDS: FOLIC ACID 1MG TAB PO SCH (09:56)
[2023-03-06] MEDS: ENOXAPARIN 40MG/0.4ML SYRINGE (J1650 PER 10MG) SC SCH (09:56)
[2023-03-06] MEDS: OMEPRAZOLE 20MG CAP PO SCH (09:56)
[2023-03-06] MEDS: TOLTERODINE TARTRATE 2 MG LA CAP (DETROL LA) PO SCH (09:56)
== END 2023-03-06 12:06 | disposition home or self-care (01) | DRG 65 ==
LOC: EDBD 08:57 → M ED 08:57 → M ED INP 12:00 → M PCU 20:56
PROVIDERS: ADMIT Student in an Organized Health Care Education/Training Program; ATTEND Internal Medicine Nephrology
PROC: B246ZZZ Ultrasonography of Right and Left Heart (ICD-10-PCS; principal; 2023-03-04)
DX: I63.9 Cerebral infarction, unspecified (principal); N39.0 Urinary tract infection, site not specified; I69.354 Hemiplegia and hemiparesis following cerebral infarction affecting left non-dominant side; D47.1 Chronic myeloproliferative disease; G89.29 Other chronic pain; M54.9 Dorsalgia, unspecified; R41.89 Other symptoms and signs involving cognitive functions and awareness; L40.0 Psoriasis vulgaris; E07.9 Disorder of thyroid, unspecified; E78.5 Hyperlipidemia, unspecified; I10 Essential (primary) hypertension; Z66 Do not resuscitate; B96.20 Unspecified Escherichia coli [E. coli] as the cause of diseases classified elsewhere; R29.810 Facial weakness; G40.909 Epilepsy, unspecified, not intractable, without status epilepticus; M81.0 Age-related osteoporosis without current pathological fracture; K21.9 Gastro-esophageal reflux disease without esophagitis; F32.A Depression, unspecified; N32.81 Overactive bladder; Z87.81 Personal history of (healed) traumatic fracture; Z90.49 Acquired absence of other specified parts of digestive tract; Z79.82 Long term (current) use of aspirin; Z79.899 Other long term (current) drug therapy; Z88.8 Allergy status to other drugs, medicaments and biological substances

== ENCOUNTER → 2023-03-21 | Outpatient (CLI) | payer MEDICARE, MEDICAID ==
[~2023-03-21] MED LIST changes: +CEFD300CAP PO; +CLOP75TA2 PO; +FOLI1TAB11 PO; +IBAN150T6 PO; +PHEN50TA PO; +PROBCAP14 PO; +XALA0.007 OU
[2023-03-21 15:46] LABS: ALBUMIN 3.4 G/DL (3.2-5.2); ALKALINE PHOSPHATASE 135 U/L (46-116); ALT/SGPT 50 U/L (7.0-40); AST/SGOT 30 U/L (<34); BILIRUBIN,TOTAL 0.3 MG/DL (0.3-1.2); BLOOD UREA NITROGEN 11 MG/DL (9-23); CALCIUM LEVEL 9.8 MG/DL (8.3-10.6); CARBON DIOXIDE LEVEL 29 MMOL/L (20-31); CHLORIDE LEVEL 100 MMOL/L (98-107); CREATININE FOR GFR 0.52 MG/DL (0.55-1.30); GLOMERULAR FILTRATION RATE > 60.0 (>39); GLUCOSE, FASTING 112 MG/DL (74-106); POTASSIUM SERUM 4.1 MMOL/L (3.5-5.1); SODIUM LEVEL 134 MMOL/L (136-145); TOTAL PROTEIN 6.5 G/DL (5.7-8.2)
[2023-03-21 15:50] LABS: HEMATOCRIT 39.4 % (36.0-47.0); HEMOGLOBIN 12.9 g/dl (12.0-15.5); MEAN CORPUSCULAR HEMOGLOBIN 30.9 pg (27.0-33.0); MEAN CORPUSCULAR HGB CONC 32.7 g/dl (32.0-36.5); MEAN CORPUSCULAR VOLUME 94.5 fl (80.0-96.0); PLATELET COUNT, AUTOMATED 236 10^3/uL (150-450); RED BLOOD COUNT 4.17 10^6/uL (4.00-5.40); WHITE BLOOD COUNT 15.5 10^3/uL (4.0-10.0)
[2023-03-21 15:51] LABS: PHENYTOIN (DILANTIN) 9.4 UG/ML (10.0-20.0)
[2023-03-21 17:20] LABS: ATYPICAL LYMPH 3 % (0-5); BASOPHILS 1 % (0-1); LYMPHOCYTES 44 % (16-44); MONOCYTES 7 % (0-5); NEUTROPHILS 45 % (28-66); PLATELET ESTIMATE NORMAL (NORMAL)
== END ==
LOC: M WUC 10:21
PROVIDERS: ATTEND Psychiatry & Neurology Neurology
DX: R56.9 Unspecified convulsions (principal); I67.9 Cerebrovascular disease, unspecified

== ENCOUNTER → 2023-03-21 | Outpatient (CLI) | payer MEDICARE, MEDICAID ==
[2023-03-21 15:50] LABS: ALBUMIN 3.4 G/DL (3.2-5.2); ALKALINE PHOSPHATASE 132 U/L (46-116); ALT/SGPT 49 U/L (7.0-40); AST/SGOT 30 U/L (<34); BASO # 0.1 10^3/uL (0.0-0.2); BASO % 0.5 % (0.0-1.0); BILIRUBIN,DIRECT 0.1 MG/DL (<0.4); BILIRUBIN,TOTAL 0.3 MG/DL (0.3-1.2); BLOOD UREA NITROGEN 12 MG/DL (9-23); CALCIUM LEVEL 9.6 MG/DL (8.3-10.6); CARBON DIOXIDE LEVEL 27 MMOL/L (20-31); CHLORIDE LEVEL 102 MMOL/L (98-107); CREATININE FOR GFR 0.51 MG/DL (0.55-1.30); EOS # 0.2 10^3/uL (0.0-0.5); EOS % 1.2 % (0.0-3.0); GLOMERULAR FILTRATION RATE > 60.0 (>39); GLUCOSE, FASTING 113 MG/DL (74-106); HEMATOCRIT 39.9 % (36.0-47.0); HEMOGLOBIN 12.9 g/dl (12.0-15.5); LYMPH # 9.2 10^3/uL (1.5-5.0); LYMPH % 60.1 % (24.0-44.0); MEAN CORPUSCULAR HEMOGLOBIN 30.5 pg (27.0-33.0); MEAN CORPUSCULAR HGB CONC 32.3 g/dl (32.0-36.5); MEAN CORPUSCULAR VOLUME 94.3 fl (80.0-96.0); MONO # 0.7 10^3/uL (0.0-0.8); MONO % 4.7 % (2.0-8.0); NEUTROPHILS # 5.1 10^3/uL (1.5-8.5); NEUTROPHILS % 33.2 % (36.0-66.0); PHOSPHORUS LEVEL 3.9 MG/DL (2.4-5.1); PLATELET COUNT, AUTOMATED 229 10^3/uL (150-450); POTASSIUM SERUM 4.2 MMOL/L (3.5-5.1); RED BLOOD COUNT 4.23 10^6/uL (4.00-5.40); SODIUM LEVEL 135 MMOL/L (136-145); TOTAL PROTEIN 6.1 G/DL (5.7-8.2); WHITE BLOOD COUNT 15.4 10^3/uL (4.0-10.0)
[2023-03-21 16:13] LABS: HIV 1&2 SCREEN NEGATIVE (NEGATIVE)
[2023-03-21 16:21] LABS: HEPATITIS C VIRUS ABY INDEX < 0.02 INDEX (<0.8)
== END ==
LOC: M WUC 10:17
PROVIDERS: ATTEND Nurse Practitioner Family
DX: L40.0 Psoriasis vulgaris (principal); Z79.899 Other long term (current) drug therapy; Z51.81 Encounter for therapeutic drug level monitoring; R56.9 Unspecified convulsions; I67.9 Cerebrovascular disease, unspecified; Z11.59 Encounter for screening for other viral diseases; Z72.89 Other problems related to lifestyle

== ENCOUNTER → 2023-03-30 | Outpatient (CLI) | payer MEDICARE, MEDICAID ==
[~2023-03-30] MED LIST changes: +GASTROGRAFIN SOLUTION 30ML As Ordered ONE; +ISOVUE-370 76% 100ML VIAL As Ordered ONE
== END ==
LOC: M RAD 12:07
PROVIDERS: ATTEND Internal Medicine Medical Oncology
DX: D47.9 Neoplasm of uncertain behavior of lymphoid, hematopoietic and related tissue, unspecified (principal)
CPT/HCPCS: 74177; Q9963; Q9967

== ENCOUNTER → 2023-03-31 | Outpatient (CLI) | payer MEDICARE, MEDICAID ==
[~2023-03-31] MED LIST changes: -GASTROGRAFIN SOLUTION 30ML As Ordered ONE; -ISOVUE-370 76% 100ML VIAL As Ordered ONE
== END ==
LOC: M WUC 12:30
PROVIDERS: ATTEND Physician Assistant
DX: G89.29 Other chronic pain (principal); M25.511 Pain in right shoulder

== ENCOUNTER → 2023-04-15 | Outpatient (CLI) | payer MEDICARE, MEDICAID | LOC: M WHC 11:00 | PROVIDERS: ATTEND Physician Assistant | DX: M85.88 Other specified disorders of bone density and structure, other site (principal); M81.0 Age-related osteoporosis without current pathological fracture ==

== ENCOUNTER → 2023-08-15 | Outpatient (REF) | payer MEDICARE, MEDICAID ==
[~2023-08-15] MED LIST changes: +MEMA10TA PO; -MEMA10TA19 PO
[2023-08-15 12:20] LABS: BASO # 0.1 10^3/uL (0.0-0.2); BASO % 0.6 % (0.0-1.0); EOS # 0.3 10^3/uL (0.0-0.5); EOS % 2.1 % (0.0-3.0); HEMATOCRIT 40.4 % (36.0-47.0); HEMOGLOBIN 13.1 g/dl (12.0-15.5); LYMPH # 7.1 10^3/uL (1.5-5.0); LYMPH % 52.3 % (24.0-44.0); MEAN CORPUSCULAR HEMOGLOBIN 30.6 pg (27.0-33.0); MEAN CORPUSCULAR HGB CONC 32.4 g/dl (32.0-36.5); MEAN CORPUSCULAR VOLUME 94.4 fl (80.0-96.0); MONO % 7.3 % (2.0-8.0); NEUTROPHILS # 5.1 10^3/uL (1.5-8.5); NEUTROPHILS % 37.4 % (36.0-66.0); PLATELET COUNT, AUTOMATED 269 10^3/uL (150-450); RED BLOOD COUNT 4.28 10^6/uL (4.00-5.40); WHITE BLOOD COUNT 13.6 10^3/uL (4.0-10.0)
[2023-08-15 12:53] LABS: LDH LACTATE DEHYDROGENASE 190 U/L (120-246)
[2023-08-15 12:54] LABS: ALBUMIN 3.2 G/DL (3.2-5.2); ALKALINE PHOSPHATASE 133 U/L (46-116); ALT/SGPT 42 U/L (7.0-40); AST/SGOT 23 U/L (<34); BILIRUBIN,TOTAL 0.3 MG/DL (0.3-1.2); BLOOD UREA NITROGEN 13 MG/DL (9-23); CALCIUM LEVEL 9.3 MG/DL (8.3-10.6); CARBON DIOXIDE LEVEL 33 MMOL/L (20-31); CHLORIDE LEVEL 103 MMOL/L (98-107); CREATININE FOR GFR 0.63 MG/DL (0.55-1.30); GLOMERULAR FILTRATION RATE > 60.0 (>39); GLUCOSE, FASTING 95 MG/DL (74-106); IRON (FE) 78 UG/DL (50-170); PERCENT SATURATION 28.1 % (13.2-45.0); POTASSIUM SERUM 4.5 MMOL/L (3.5-5.1); SODIUM LEVEL 138 MMOL/L (136-145); TOTAL IRON BINDING CAPACITY 278 UG/DL (250-425); TOTAL PROTEIN 5.9 G/DL (5.7-8.2)
[2023-08-15 12:55] LABS: FERRITIN 40.8 NG/ML (7.3-270.7)
== END ==
LOC: M LABWUC 11:33
PROVIDERS: ATTEND Internal Medicine Medical Oncology
DX: C85.90 Non-Hodgkin lymphoma, unspecified, unspecified site (principal)

== ENCOUNTER 2024-03-31 20:43 | Inpatient (IN) | payer MEDICARE, MEDICAID ==
[~2024-03-31] VITALS: Ht 147.3 cm; Wt 66.2 kg
[2024-03-31] VITALS (13 sets, daily range): BP systolic 95–190; BP diastolic 51–93; TEMP 96.3; O2SAT 98–100
[~2024-03-31 20:43] MED LIST changes: +ACET1TAB55 PO; -FLUO0.0114 AS; +FLUO0.0133 AS; +IBAN150T10 PO; -IBAN150T6 PO; +NYST1POW3 TOP; -NYST1POW9 TOP
[2024-03-31] MEDS ORDERED: ISOVUE-370 76% 100ML VIAL As Ordered ONE (20:51)
[2024-03-31 21:33] LABS: HEMATOCRIT 41.3 % (36.0-47.0); HEMOGLOBIN 13.5 g/dl (12.0-15.5); MEAN CORPUSCULAR HEMOGLOBIN 30.5 pg (27.0-33.0); MEAN CORPUSCULAR HGB CONC 32.7 g/dl (32.0-36.5); MEAN CORPUSCULAR VOLUME 93.4 fl (80.0-96.0); RED BLOOD COUNT 4.42 10^6/uL (4.00-5.40); WHITE BLOOD COUNT 13.5 10^3/uL (4.0-10.0)
[2024-03-31 22:09] LABS: INR 0.99; PARTIAL THROMBOPLASTIN TIME 27.5 SECONDS (24.8-34.2); PROTHROMBIN TIME 13.4 SECONDS (12.5-14.5)
[2024-03-31 22:31] LABS: ATYPICAL LYMPH 3 % (0-5); BASOPHILS 2 % (0-1); EOSINOPHILS 2 % (0-3); LYMPHOCYTES 51 % (16-44); MONOCYTES 3 % (0-5); NEUTROPHILS 39 % (28-66); PLATELET ESTIMATE NORMAL (NORMAL)
[2024-03-31 22:32] LABS: ANISOCYTOSIS 1+; OVALOCYTES 1+; POIKILOCYTOSIS 1+
[2024-03-31 22:45] LABS: PLATELET COUNT, AUTOMATED 212 10^3/uL (150-450)
[2024-03-31 22:47] LABS: CK-MB VALUE MASS < 1.0 NG/ML (<3.6)
[2024-03-31 22:49] LABS: BLOOD UREA NITROGEN 12 MG/DL (9-23); CALCIUM LEVEL 8.9 MG/DL (8.3-10.6); CARBON DIOXIDE LEVEL 25 MMOL/L (20-31); CHLORIDE LEVEL 102 MMOL/L (98-107); CREATININE FOR GFR 0.65 MG/DL (0.55-1.30); GLOMERULAR FILTRATION RATE > 60.0 (>39); GLUCOSE, FASTING 135 MG/DL (74-106); POTASSIUM SERUM 4.3 MMOL/L (3.5-5.1); SODIUM LEVEL 136 MMOL/L (136-145)
[2024-03-31 22:52] LABS: CPK CREATINE PHOSPHOKINASE 37 U/L (34-145)
[2024-03-31] MEDS: NS (Normal Saline) 0.9% 1,000 ML IV ONE (23:20)
[2024-04-01] MEDS ORDERED: MED REC IN PROGRESS XX SCH (00:25)
[2024-04-01 00:32] LABS: KETONE, URINE AUTO RFX NEGATIVE (NEGATIVE); LEUKOCYTE ESTERASE UR AUTO RFX NEGATIVE (NEGATIVE); RBC, URINE AUTO RFX 0 /HPF (0-3); SQUAM EPITHELIAL CELL UR AURFX 0 /HPF (0-6); WBC, URINE AUTO RFX 5 /HPF (0-3)
[2024-04-01 00:34] LABS: NITRITE, URINE AUTO RFX POSITIVE (NEGATIVE)
[2024-04-01] MEDS: NS (Normal Saline) 0.9% 1,000 ML IV ONE (04:15)
[2024-04-01] MEDS: ATORVASTATIN 20 MG TAB PO ONE (04:19)
[2024-04-01] MEDS ORDERED: cefTRIAXone SOD 2GM VIAL IM SCH (04:40)
[2024-04-01] MEDS ORDERED: MULT-90 PO (04:49)
[2024-04-01] MEDS ORDERED: GUAI5EL PO (04:49)
[2024-04-01] MEDS ORDERED: AMLO1TAB24 PO (04:49)
[2024-04-01] MEDS ORDERED: FLUT0.003 TOP (04:49)
[2024-04-01] MEDS ORDERED: NEOM28OI TOP (04:49)
[2024-04-01] MEDS ORDERED: DESI13CR2 TOP (04:49)
[2024-04-01 05:24] VITALS: BP 164/75; TEMP 96.8; O2SAT 100
[2024-04-01] MEDS ORDERED: SFHIBU200 PO (05:29)
[2024-04-01] MEDS ORDERED: CLOP75TA2 PO (05:29)
[2024-04-01] MEDS ORDERED: OMEP-173 PO (05:29)
[2024-04-01] MEDS ORDERED: PHEN26CR TOP (05:30)
[2024-04-01] MEDS ORDERED: HOME MED LIST COMPLETE! XX SCH (05:35)
[2024-04-01] MEDS ORDERED: NEOSPORIN OINT 0.9 GM PKT TOP PRN (05:50)
[2024-04-01] MEDS ORDERED: guaiFENesin SYRUP 200MG 10ML UDC PO PRN (05:50)
[2024-04-01] MEDS: cefTRIAXone SOD 2 GM in DEXTROSE 5% (D5W) ADV/MINI-BAG 50 ML IV SCH (06:03)
[2024-04-01 07:00] LABS: BASO % 0.3 % (0.0-1.0); EOS # 0.1 10^3/uL (0.0-0.5); EOS % 0.6 % (0.0-3.0); HEMATOCRIT 40.6 % (36.0-47.0); HEMOGLOBIN 13.4 g/dl (12.0-15.5); LYMPH # 6.9 10^3/uL (1.5-5.0); LYMPH % 55.6 % (24.0-44.0); MEAN CORPUSCULAR HEMOGLOBIN 30.7 pg (27.0-33.0); MEAN CORPUSCULAR VOLUME 93.1 fl (80.0-96.0); MONO # 0.5 10^3/uL (0.0-0.8); MONO % 3.8 % (2.0-8.0); NEUTROPHILS # 4.9 10^3/uL (1.5-8.5); NEUTROPHILS % 39.5 % (36.0-66.0); PLATELET COUNT, AUTOMATED 218 10^3/uL (150-450); RED BLOOD COUNT 4.36 10^6/uL (4.00-5.40); WHITE BLOOD COUNT 12.4 10^3/uL (4.0-10.0)
[2024-04-01 07:23] LABS: ALBUMIN 2.9 G/DL (3.2-5.2); ALKALINE PHOSPHATASE 133 U/L (35-104); ALT/SGPT 37 U/L (7.0-40); AST/SGOT 19 U/L (<34); BILIRUBIN,TOTAL 0.2 MG/DL (0.3-1.2); BLOOD UREA NITROGEN 10 MG/DL (9-23); CALCIUM LEVEL 8.1 MG/DL (8.3-10.6); CARBON DIOXIDE LEVEL 26 MMOL/L (20-31); CHLORIDE LEVEL 102 MMOL/L (98-107); CREATININE FOR GFR 0.53 MG/DL (0.55-1.30); GLOMERULAR FILTRATION RATE > 60.0 (>39); GLUCOSE, FASTING 162 MG/DL (74-106); SODIUM LEVEL 139 MMOL/L (136-145); TOTAL PROTEIN 5.7 G/DL (5.7-8.2)
[2024-04-01 07:24] LABS: PROCALCITONIN <0.04 ng/ml
[2024-04-01 07:52] LABS: CHOLESTEROL LEVEL 181 MG/DL (<200); CHOLESTEROL RISK RATIO 2.81 (<5); HDL CHOLESTEROL 64.4 MG/DL (>40); LDL CHOLESTEROL 99.2 MG/DL (<100); NON-HDL-C 116.6 MG/DL; TRIGLYCERIDES LEVEL 87 MG/DL (<150)
[2024-04-01 07:55] LABS: HEMOGLOBIN A1c 5.4 % (4.0-6.0)
[2024-04-01 08:24] VITALS: BP 138/63; TEMP 97; O2SAT 97
[2024-04-01] MEDS: DOCUSATE SODIUM 100MG CAPSULE PO SCH (09:00)
[2024-04-01] MEDS ORDERED: PHENYTOIN ER 100 MG CAP PO SCH (09:00)
[2024-04-01] MEDS: ENOXAPARIN 40MG/0.4ML SYRINGE (J1650 PER 10MG) SC SCH (09:47)
[2024-04-01] MEDS: ASCORBIC ACID 500 MG TAB PO SCH (09:47)
[2024-04-01] MEDS: TOLTERODINE TARTRATE 2 MG LA CAP (DETROL LA) PO SCH (09:47)
[2024-04-01] MEDS: CALCIUM CARBONATE 500 MG CHEW U/D PO SCH (09:48)
[2024-04-01] MEDS: MEMANTINE 5MG TABLET (NAMENDA) PO SCH (09:48)
[2024-04-01] MEDS: FOLIC ACID 1MG TAB PO SCH (09:48)
[2024-04-01] MEDS: ASPIRIN 81MG ENTERIC TABLET PO SCH (09:49)
[2024-04-01] MEDS: OMEPRAZOLE 20MG CAP PO SCH (09:49)
[2024-04-01] MEDS: PHENYTOIN ER 100 MG CAP PO SCH (09:53)
[2024-04-01 10:40] LABS: PHENYTOIN (DILANTIN) 7.7 UG/ML (10.0-20.0)
[2024-04-01 11:42] VITALS: BP 140/66; TEMP 97.4; O2SAT 97
[2024-04-01 16:29] VITALS: BP 159/69; TEMP 97.5; O2SAT 97
[2024-04-01 20:15] VITALS: BP 163/69; TEMP 97.6; O2SAT 96
[2024-04-01] MEDS ORDERED: CLOPIDOGREL 75 MG TAB PO SCH (21:00)
[2024-04-01] MEDS: LATANOPROST 0.005% OPHTH SOLN 2.5 ML OU SCH (22:09)
[2024-04-01] MEDS: ATORVASTATIN 20 MG TAB PO SCH (22:10)
[2024-04-01] MEDS: SERTRALINE 100 MG TAB PO SCH (22:10)
[2024-04-01] MEDS: PHENYTOIN 125MG/5ML SUSP ORAL SYRINGE *DRAW UP EXACT DOSE PO SCH (22:11)
[2024-04-02] VITALS (8 sets, daily range): BP systolic 124–176; BP diastolic 58–79; TEMP 97.2–98.3; O2SAT 93–98
[2024-04-02 07:57] LABS: HEMATOCRIT 41.4 % (36.0-47.0); HEMOGLOBIN 14.3 g/dl (12.0-15.5); MEAN CORPUSCULAR HGB CONC 34.5 g/dl (32.0-36.5); MEAN CORPUSCULAR VOLUME 89.6 fl (80.0-96.0); PLATELET COUNT, AUTOMATED 218 10^3/uL (150-450); RED BLOOD COUNT 4.62 10^6/uL (4.00-5.40); WHITE BLOOD COUNT 14.9 10^3/uL (4.0-10.0)
[2024-04-02 08:06] LABS: BLOOD UREA NITROGEN 8 MG/DL (9-23); CARBON DIOXIDE LEVEL 25 MMOL/L (20-31); CHLORIDE LEVEL 110 MMOL/L (98-107); CREATININE FOR GFR 0.59 MG/DL (0.55-1.30); GLOMERULAR FILTRATION RATE > 60.0 (>39); GLUCOSE, FASTING 111 MG/DL (74-106); POTASSIUM SERUM 4.9 MMOL/L (3.5-5.1); SODIUM LEVEL 141 MMOL/L (136-145)
[2024-04-02] MEDS: amLODIPine 5 MG TAB PO SCH (11:24)
[2024-04-02] MEDS: PHENYTOIN 125MG/5ML SUSP ORAL SYRINGE *DRAW UP EXACT DOSE PO SCH (11:39)
[2024-04-02] MEDS: ACETAMINOPHEN 325 MG TAB PO PRN (21:23)
[2024-04-03 03:54] VITALS: BP 145/67; TEMP 96.8; O2SAT 97
[2024-04-03 08:00] VITALS: BP 149/70; TEMP 97.3; O2SAT 97
[2024-04-03 09:52] VITALS: BP 145/67
[2024-04-03] MEDS: CEFDINIR 250MG/5ML 60ML SUSP BTL PO SCH (10:29)
[2024-04-03] MEDS ORDERED: PHEN30CA PO (10:31)
[2024-04-03] MEDS ORDERED: ATOR40TA75 PO (10:31)
[2024-04-03] MEDS ORDERED: CEFD250S26 PO (10:31)
[2024-04-03] MEDS ORDERED: PHEN100C PO (10:31)
[2024-04-03] MEDS: MIRALAX *UNIT DOSE* 17GM PACKET PO SCH (11:25)
[2024-04-03 12:00] VITALS: BP 132/63; TEMP 97.7; O2SAT 99
[2024-04-04] MEDS ORDERED: ENTER DRUG NAME HERE (PATIENT'S OWN MED) PO ONE (14:00)
== END 2024-04-03 14:27 | disposition home or self-care (01) | DRG 689 ==
LOC: EDBD 20:43 → M ED 20:43 → M ED INP 04-01 03:28 → M PCU 04-01 05:14
PROVIDERS: ADMIT Student in an Organized Health Care Education/Training Program; ATTEND Student in an Organized Health Care Education/Training Program
PROC: B246ZZZ Ultrasonography of Right and Left Heart (ICD-10-PCS; principal; 2024-04-02)
DX: N39.0 Urinary tract infection, site not specified (principal); G93.41 Metabolic encephalopathy; I69.354 Hemiplegia and hemiparesis following cerebral infarction affecting left non-dominant side; Z66 Do not resuscitate; B96.20 Unspecified Escherichia coli [E. coli] as the cause of diseases classified elsewhere; M54.9 Dorsalgia, unspecified; G89.29 Other chronic pain; E78.5 Hyperlipidemia, unspecified; G40.909 Epilepsy, unspecified, not intractable, without status epilepticus; M81.0 Age-related osteoporosis without current pathological fracture; K21.9 Gastro-esophageal reflux disease without esophagitis; F32.A Depression, unspecified; N32.81 Overactive bladder; E07.9 Disorder of thyroid, unspecified; H40.9 Unspecified glaucoma; Z79.899 Other long term (current) drug therapy; Z88.8 Allergy status to other drugs, medicaments and biological substances

== ENCOUNTER → 2024-04-09 | Outpatient (CLI) | payer MEDICARE, MEDICAID ==
[~2024-04-09] MED LIST changes: +AMLO1TAB24 PO; +ATOR40TA75 PO; +CEFD250S26 PO; +DESI13CR2 TOP; +FLUT0.003 TOP; +GUAI5EL PO; +MULT-90 PO; +NEOM28OI TOP; +OMEP-173 PO; +PHEN26CR TOP; +SFHIBU200 PO
[2024-04-09 12:04] LABS: HEMATOCRIT 37.8 % (36.0-47.0); HEMOGLOBIN 12.4 g/dl (12.0-15.5); MEAN CORPUSCULAR HEMOGLOBIN 30.4 pg (27.0-33.0); MEAN CORPUSCULAR HGB CONC 32.8 g/dl (32.0-36.5); MEAN CORPUSCULAR VOLUME 92.6 fl (80.0-96.0); PLATELET COUNT, AUTOMATED 150 10^3/uL (150-450); RED BLOOD COUNT 4.08 10^6/uL (4.00-5.40); WHITE BLOOD COUNT 5.9 10^3/uL (4.0-10.0)
[2024-04-09 12:11] LABS: ALBUMIN 3.2 G/DL (3.2-5.2); ALKALINE PHOSPHATASE 145 U/L (35-104); ALT/SGPT 43 U/L (7.0-40); AST/SGOT 26 U/L (<34); BILIRUBIN,DIRECT 0.2 MG/DL (<0.4); BILIRUBIN,TOTAL 0.5 MG/DL (0.3-1.2); BLOOD UREA NITROGEN 10 MG/DL (9-23); CALCIUM LEVEL 9.1 MG/DL (8.3-10.6); CARBON DIOXIDE LEVEL 29 MMOL/L (20-31); CHLORIDE LEVEL 99 MMOL/L (98-107); CREATININE FOR GFR 0.63 MG/DL (0.55-1.30); GLOMERULAR FILTRATION RATE > 60.0 (>39); GLUCOSE, FASTING 123 MG/DL (74-106); HEPATITIS B SURFACE ANTIBODY NEGATIVE (POSITIVE); PHOSPHORUS LEVEL 2.9 MG/DL (2.4-5.1); POTASSIUM SERUM 3.7 MMOL/L (3.5-5.1); SODIUM LEVEL 137 MMOL/L (136-145); TOTAL PROTEIN 6.3 G/DL (5.7-8.2)
[2024-04-09 12:34] LABS: HIV 1&2 SCREEN NEGATIVE (NEGATIVE)
[2024-04-09 12:42] LABS: HEPATITIS C VIRUS ABY INDEX 0.13 INDEX (<0.8)
[2024-04-09 12:46] LABS: ATYPICAL LYMPH 8 % (0-5); EOSINOPHILS 4 % (0-3); LYMPHOCYTES 67 % (16-44); MONOCYTES 7 % (0-5); NEUTROPHILS 9 % (28-66); PLATELET ESTIMATE NORMAL (NORMAL)
[2024-04-11 13:23] LABS: QuantiFERON-TB Gold Plus NEGATIVE (NEGATIVE)
== END ==
LOC: M WUC 08:51
PROVIDERS: ATTEND Nurse Practitioner Family
DX: Z00.00 Encounter for general adult medical examination without abnormal findings (principal); L40.0 Psoriasis vulgaris; Z79.899 Other long term (current) drug therapy; Z51.81 Encounter for therapeutic drug level monitoring; G40.909 Epilepsy, unspecified, not intractable, without status epilepticus; Z11.59 Encounter for screening for other viral diseases

== ENCOUNTER → 2024-04-09 | Outpatient (CLI) | payer MEDICARE, MEDICAID ==
[2024-04-09 12:06] LABS: PHENYTOIN (DILANTIN) 9.7 UG/ML (10.0-20.0)
[2024-04-09 12:09] LABS: ALBUMIN 3.1 G/DL (3.2-5.2); ALKALINE PHOSPHATASE 146 U/L (35-104); ALT/SGPT 45 U/L (7.0-40); AST/SGOT 24 U/L (<34); BILIRUBIN,TOTAL 0.6 MG/DL (0.3-1.2); BLOOD UREA NITROGEN 10 MG/DL (9-23); CALCIUM LEVEL 8.9 MG/DL (8.3-10.6); CARBON DIOXIDE LEVEL 30 MMOL/L (20-31); CHLORIDE LEVEL 100 MMOL/L (98-107); CHOLESTEROL LEVEL 161 MG/DL (<200); CHOLESTEROL RISK RATIO 2.56 (<5); CREATININE FOR GFR 0.64 MG/DL (0.55-1.30); GLOMERULAR FILTRATION RATE > 60.0 (>39); GLUCOSE, FASTING 122 MG/DL (74-106); HDL CHOLESTEROL 62.8 MG/DL (>40); LDL CHOLESTEROL 77.2 MG/DL (<100); NON-HDL-C 98.2 MG/DL; POTASSIUM SERUM 3.6 MMOL/L (3.5-5.1); SODIUM LEVEL 137 MMOL/L (136-145); TOTAL PROTEIN 6.2 G/DL (5.7-8.2); TRIGLYCERIDES LEVEL 105 MG/DL (<150)
[2024-04-09 12:15] LABS: HEMATOCRIT 37.2 % (36.0-47.0); HEMOGLOBIN 12.4 g/dl (12.0-15.5); MEAN CORPUSCULAR HEMOGLOBIN 30.9 pg (27.0-33.0); MEAN CORPUSCULAR HGB CONC 33.3 g/dl (32.0-36.5); MEAN CORPUSCULAR VOLUME 92.8 fl (80.0-96.0); PLATELET COUNT, AUTOMATED 153 10^3/uL (150-450); RED BLOOD COUNT 4.01 10^6/uL (4.00-5.40); WHITE BLOOD COUNT 5.6 10^3/uL (4.0-10.0)
[2024-04-09 12:52] LABS: ATYPICAL LYMPH 7 % (0-5); EOSINOPHILS 2 % (0-3); LYMPHOCYTES 73 % (16-44); MONOCYTES 6 % (0-5); NEUTROPHILS 8 % (28-66); PLATELET ESTIMATE NORMAL (NORMAL)
== END ==
LOC: M WUC 08:49
PROVIDERS: ATTEND Family Medicine
DX: Z00.00 Encounter for general adult medical examination without abnormal findings (principal); G40.909 Epilepsy, unspecified, not intractable, without status epilepticus

== ENCOUNTER → 2024-09-03 | Outpatient (CLI) | payer MEDICARE, MEDICAID | LOC: M RAD 12:58 | PROVIDERS: ATTEND Internal Medicine | DX: E04.1 Nontoxic single thyroid nodule (principal) ==

== ENCOUNTER → 2024-11-23 | Outpatient (CLI) | payer MEDICARE, MEDICAID ==
[~2024-11-23] MED LIST changes: +KEPP1TAB PO; +LACT20EL PO; +METH-1164 PO; +SENN-225 PO; -SENO8.6T5 PO; +TAB-TAB3 PO; +TIMO5DRO9 OD; +VYZU0.02 OU
[2024-11-23 11:28] LABS: PLATELET COUNT, AUTOMATED 276 10^3/uL (150-450)
[2024-11-23 11:59] LABS: BASO # 0.1 10^3/uL (0.0-0.2); BASO % 0.4 % (0.0-1.0); EOS # 0.2 10^3/uL (0.0-0.5); EOS % 1.7 % (0.0-3.0); LYMPH # 7.6 10^3/uL (1.5-5.0); LYMPH % 55.3 % (24.0-44.0); MONO # 0.7 10^3/uL (0.0-0.8); MONO % 4.7 % (2.0-8.0); NEUTROPHILS # 5.2 10^3/uL (1.5-8.5); NEUTROPHILS % 37.7 % (36.0-66.0)
[2024-11-23 12:00] LABS: ALT/SGPT 57 U/L (7.0-40); AST/SGOT 38 U/L (<34); CALCIUM LEVEL 9.3 MG/DL (8.3-10.6); CARBON DIOXIDE LEVEL 27 MMOL/L (20-31); CHLORIDE LEVEL 98 MMOL/L (98-107); CREATININE FOR GFR 0.49 MG/DL (0.55-1.30); GLOMERULAR FILTRATION RATE > 90.0 (>39); POTASSIUM SERUM 4.2 MMOL/L (3.5-5.1); SODIUM LEVEL 133 MMOL/L (136-145)
[2024-11-23 12:04] LABS: PLATELET ESTIMATE NORMAL (NORMAL)
== END ==
LOC: M LAB 10:07 → M WUC 10:07
PROVIDERS: ATTEND Family Medicine
DX: G93.41 Metabolic encephalopathy (principal); E87.1 Hypo-osmolality and hyponatremia

== ENCOUNTER → 2024-11-23 | Outpatient (CLI) | payer MEDICARE, MEDICAID ==
[~2024-11-23] MED LIST changes: +ASPI81TAEC PO
[2024-11-23 12:11] LABS: BASO # 0.1 10^3/uL (0.0-0.2); BASO % 0.5 % (0.0-1.0); EOS # 0.3 10^3/uL (0.0-0.5); EOS % 1.8 % (0.0-3.0); LYMPH # 7.7 10^3/uL (1.5-5.0); LYMPH % 56.5 % (24.0-44.0); MONO # 0.7 10^3/uL (0.0-0.8); MONO % 4.8 % (2.0-8.0); NEUTROPHILS # 5.0 10^3/uL (1.5-8.5); NEUTROPHILS % 36.2 % (36.0-66.0); PLATELET COUNT, AUTOMATED 280 10^3/uL (150-450)
[2024-11-23 12:39] LABS: ALT/SGPT 58 U/L (7.0-40); AST/SGOT 43 U/L (<34); CALCIUM LEVEL 9.5 MG/DL (8.3-10.6); CARBON DIOXIDE LEVEL 28 MMOL/L (20-31); CHLORIDE LEVEL 97 MMOL/L (98-107); CREATININE FOR GFR 0.51 MG/DL (0.55-1.30); GLOMERULAR FILTRATION RATE > 90.0 (>39); POTASSIUM SERUM 4.3 MMOL/L (3.5-5.1); SODIUM LEVEL 133 MMOL/L (136-145)
== END ==
LOC: M WUC 10:10 → M LAB 10:10
PROVIDERS: ATTEND Psychiatry & Neurology Neurology
DX: R56.9 Unspecified convulsions (principal); R41.82 Altered mental status, unspecified; G93.41 Metabolic encephalopathy; E87.1 Hypo-osmolality and hyponatremia

== ENCOUNTER 2024-12-07 11:02 | Inpatient (IN) | payer MEDICARE, MEDICAID ==
[~2024-12-07] VITALS: Ht 149.9 cm; Wt 58.0 kg
[~2024-12-07 11:02] MED LIST changes: -ASPI81TAEC PO
[2024-12-07 13:08] LABS: BASO # 0.1 10^3/uL (0.0-0.2); BASO % 0.5 % (0.0-1.0); EOS # 0.2 10^3/uL (0.0-0.5); EOS % 1.5 % (0.0-3.0); LYMPH # 7.2 10^3/uL (1.5-5.0); LYMPH % 59.5 % (24.0-44.0); MONO # 0.7 10^3/uL (0.0-0.8); MONO % 6.1 % (2.0-8.0); NEUTROPHILS # 3.9 10^3/uL (1.5-8.5); NEUTROPHILS % 32.2 % (36.0-66.0); PLATELET COUNT, AUTOMATED 195 10^3/uL (150-450)
[2024-12-07] MEDS ORDERED: ISOVUE-370 76% 100 ML VIAL As Ordered ONE (13:15)
[2024-12-07] MEDS ORDERED: LACT20EL PO (13:23)
[2024-12-07] MEDS ORDERED: HOME MED LIST COMPLETE! XX SCH (13:25)
[2024-12-07 13:27] LABS: CK-MB VALUE MASS < 1.0 NG/ML (<3.6)
[2024-12-07 13:28] LABS: ALT/SGPT 47 U/L (7.0-40); AST/SGOT 34 U/L (<34); CALCIUM LEVEL 9.8 MG/DL (8.3-10.6); CARBON DIOXIDE LEVEL 30 MMOL/L (20-31); CHLORIDE LEVEL 100 MMOL/L (98-107); CREATININE FOR GFR 0.53 MG/DL (0.55-1.30); GLOMERULAR FILTRATION RATE > 90.0 (>39); POTASSIUM SERUM 4.2 MMOL/L (3.5-5.1); SODIUM LEVEL 139 MMOL/L (136-145)
[2024-12-07 13:30] LABS: CPK CREATINE PHOSPHOKINASE 29 U/L (34-145)
[2024-12-07 13:36] LABS: INR 1.0
[2024-12-07 14:03] LABS: AMPHETAMINES LEVEL URINE NEGATIVE (NEGATIVE); BARBITURATES URINE NEGATIVE (NEGATIVE); BENZODIAZEPINES URINE NEGATIVE (NEGATIVE); CANNABINOIDS URINE NEGATIVE (NEGATIVE); COCAINE METABOLITE URINE NEGATIVE (NEGATIVE); METHADONE URINE NEGATIVE (NEGATIVE); OPIATES URINE NEGATIVE (NEGATIVE); PHENCYCLIDINE URINE NEGATIVE (NEGATIVE)
[2024-12-07 14:46] LABS: CK-MB VALUE MASS < 1.0 NG/ML (<3.6)
[2024-12-07 14:50] LABS: CPK CREATINE PHOSPHOKINASE 36 U/L (34-145)
[2024-12-07] MEDS: NS (Normal Saline) 0.9% 1,000 ML IV SCH ×2 (17:41→17:42)
[2024-12-07 18:25] LABS: INR 0.96
[2024-12-07 18:26] LABS: CHOLESTEROL LEVEL 173.0 MG/DL (<200); CHOLESTEROL RISK RATIO 2.62 (<5); ESTIMATED AVERAGE GLUCOSE 111.0 MG/DL (60-110); LDL CHOLESTEROL 91.8 MG/DL (<100); NON-HDL-C 107.2 MG/DL; TRIGLYCERIDES LEVEL 77.0 MG/DL (<150)
[2024-12-07 20:02] LABS: KETONE, URINE AUTO RFX NEGATIVE (NEGATIVE); LEUKOCYTE ESTERASE UR AUTO RFX NEGATIVE (NEGATIVE); MUCUS, URINE RFX SMALL (NEGATIVE); NITRITE, URINE AUTO RFX NEGATIVE (NEGATIVE); RBC, URINE AUTO RFX 1 /HPF (0-3); SQUAM EPITHELIAL CELL UR AURFX 0 /HPF (0-6); WBC, URINE AUTO RFX 0 /HPF (0-3)
[2024-12-07 20:48] VITALS: BP 115/69; TEMP 97.9; O2SAT 99
[2024-12-07] MEDS: LACTULOSE 20 GM/30 ML SYRUP UDC PO SCH (22:26)
[2024-12-07] MEDS: CLOPIDOGREL 75 MG TAB PO SCH (22:26)
[2024-12-07] MEDS: ATORVASTATIN 20 MG TAB PO SCH (22:26)
[2024-12-07] MEDS: SERTRALINE 100 MG TAB PO SCH (22:26)
[2024-12-07] MEDS: MEMANTINE 5 MG TABLET PO SCH (22:27)
[2024-12-07] MEDS: TIMOLOL MALEATE 0.5% OPHTH SOLN 5 ML OD SCH (22:27)
[2024-12-07] MEDS: PHENYTOIN ER 100 MG CAP PO SCH (22:47)
[2024-12-07] MEDS: PHENYTOIN 125MG/5ML SUSP ORAL SYRINGE *DRAW UP EXACT DOSE PO SCH (22:47)
[2024-12-08 03:36] VITALS: BP 133/64; TEMP 98.1; O2SAT 97
[2024-12-08 06:59] LABS: PLATELET COUNT, AUTOMATED 173 10^3/uL (150-450)
[2024-12-08 07:27] LABS: ALT/SGPT 49 U/L (7.0-40); AST/SGOT 42 U/L (<34); CALCIUM LEVEL 8.9 MG/DL (8.3-10.6); CARBON DIOXIDE LEVEL 24 MMOL/L (20-31); CHLORIDE LEVEL 105 MMOL/L (98-107); CREATININE FOR GFR 0.50 MG/DL (0.55-1.30); GLOMERULAR FILTRATION RATE > 90.0 (>39); POTASSIUM SERUM 4.0 MMOL/L (3.5-5.1); SODIUM LEVEL 139 MMOL/L (136-145)
[2024-12-08] MEDS: ASCORBIC ACID 500 MG TAB PO SCH (09:00)
[2024-12-08] MEDS: TOLTERODINE TARTRATE 2 MG LA CAP PO SCH (09:01)
[2024-12-08] MEDS: CALCIUM CARBONATE 500 MG CHEW U/D PO SCH (09:01)
[2024-12-08] MEDS: FOLIC ACID 1 MG TAB PO SCH (09:02)
[2024-12-08] MEDS: MULTIVITAMINS/MINERALS THERAP 1 TAB PO SCH (09:02)
[2024-12-08] MEDS: DOCUSATE SODIUM 100 MG CAPSULE PO SCH (09:02)
[2024-12-08] MEDS: OMEPRAZOLE 20MG CAP PO SCH (09:02)
[2024-12-08] MEDS ORDERED: PROHANCE 279.3MG/ML 15ML VIAL As Ordered ONE (10:11)
[2024-12-08 11:55] VITALS: BP 140/65; TEMP 98.1; O2SAT 98
[2024-12-08] MEDS: ACETAMINOPHEN 325 MG TAB PO PRN (16:23)
[2024-12-08 20:03] VITALS: BP 143/67; TEMP 97.9; O2SAT 97
[2024-12-09 03:31] VITALS: BP 148/69; TEMP 97.9; O2SAT 96
[2024-12-09 06:33] LABS: PLATELET COUNT, AUTOMATED 164 10^3/uL (150-450)
[2024-12-09 07:09] LABS: ALT/SGPT 61 U/L (7.0-40); AST/SGOT 46 U/L (<34); CALCIUM LEVEL 8.5 MG/DL (8.3-10.6); CARBON DIOXIDE LEVEL 26 MMOL/L (20-31); CHLORIDE LEVEL 107 MMOL/L (98-107); CREATININE FOR GFR 0.47 MG/DL (0.55-1.30); GLOMERULAR FILTRATION RATE > 90.0 (>39); POTASSIUM SERUM 3.9 MMOL/L (3.5-5.1); SODIUM LEVEL 142 MMOL/L (136-145)
[2024-12-09 12:40] VITALS: BP 130/65; TEMP 97.7; O2SAT 96
[2024-12-09 21:15] VITALS: BP 140/75; TEMP 97.9; O2SAT 96
[2024-12-10 04:12] VITALS: BP 149/71; TEMP 97.7; O2SAT 98
[2024-12-10 06:44] LABS: PLATELET COUNT, AUTOMATED 199 10^3/uL (150-450)
[2024-12-10 07:08] LABS: ALT/SGPT 57 U/L (7.0-40); AST/SGOT 52 U/L (<34); CALCIUM LEVEL 8.9 MG/DL (8.3-10.6); CARBON DIOXIDE LEVEL 27 MMOL/L (20-31); CHLORIDE LEVEL 102 MMOL/L (98-107); CREATININE FOR GFR 0.52 MG/DL (0.55-1.30); GLOMERULAR FILTRATION RATE > 90.0 (>39); POTASSIUM SERUM 4.6 MMOL/L (3.5-5.1); SODIUM LEVEL 139 MMOL/L (136-145)
[2024-12-10] MEDS: ASPIRIN 81 MG ENTERIC TABLET PO SCH (09:45)
[2024-12-10 12:00] VITALS: BP 139/65; TEMP 97.4; O2SAT 97
[2024-12-10 12:42] VITALS: BP 139/65; TEMP 97.4; O2SAT 97
[2024-12-10 20:59] VITALS: BP 136/73; TEMP 98.2; O2SAT 97
[2024-12-11 04:08] VITALS: BP 141/64; TEMP 97.9; O2SAT 96
[2024-12-11 07:18] LABS: PLATELET COUNT, AUTOMATED 208 10^3/uL (150-450)
[2024-12-11 07:53] LABS: ALT/SGPT 52 U/L (7.0-40); AST/SGOT 39 U/L (<34); CALCIUM LEVEL 8.8 MG/DL (8.3-10.6); CARBON DIOXIDE LEVEL 28 MMOL/L (20-31); CHLORIDE LEVEL 103 MMOL/L (98-107); CREATININE FOR GFR 0.58 MG/DL (0.55-1.30); GLOMERULAR FILTRATION RATE > 90.0 (>39); POTASSIUM SERUM 3.7 MMOL/L (3.5-5.1); SODIUM LEVEL 139 MMOL/L (136-145)
[2024-12-11] MEDS ORDERED: ASPI81TAEC PO (09:34)
== END 2024-12-11 11:58 | disposition home or self-care (01) | DRG 65 ==
LOC: EDBD 11:02 → M ED 11:02 → M ED INP 17:21 → M MSPAV 20:47
PROVIDERS: ADMIT Internal Medicine; ATTEND Internal Medicine Nephrology
PROC: B246ZZZ Ultrasonography of Right and Left Heart (ICD-10-PCS; principal; 2024-12-10)
DX: I63.9 Cerebral infarction, unspecified (principal); I69.354 Hemiplegia and hemiparesis following cerebral infarction affecting left non-dominant side; K86.2 Cyst of pancreas; F03.90 Unspecified dementia, unspecified severity, without behavioral disturbance, psychotic disturbance, mood disturbance, and anxiety; E78.5 Hyperlipidemia, unspecified; G40.909 Epilepsy, unspecified, not intractable, without status epilepticus; K21.9 Gastro-esophageal reflux disease without esophagitis; F32.A Depression, unspecified; I10 Essential (primary) hypertension; F70 Mild intellectual disabilities; M81.0 Age-related osteoporosis without current pathological fracture; N32.81 Overactive bladder; Z90.49 Acquired absence of other specified parts of digestive tract; Z90.79 Acquired absence of other genital organ(s); R26.89 Other abnormalities of gait and mobility; Z79.899 Other long term (current) drug therapy; Z88.8 Allergy status to other drugs, medicaments and biological substances; M54.9 Dorsalgia, unspecified; G89.29 Other chronic pain; L40.9 Psoriasis, unspecified; S00.93XA Contusion of unspecified part of head, initial encounter; W19.XXXA Unspecified fall, initial encounter; Y92.009 Unspecified place in unspecified non-institutional (private) residence as the place of occurrence of the external cause; Z66 Do not resuscitate

== ENCOUNTER → 2024-12-18 | Outpatient (CLI) | payer MEDICARE, MEDICAID ==
[~2024-12-18] MED LIST changes: +ASPI81TAEC PO; +LIDOCAINE 1% MDV 20 ML VIAL SC SCH
[2024-12-18 14:15] VITALS: TEMP 96
[2024-12-18 15:05] VITALS: BP 134/66; O2SAT 99
== END ==
LOC: M IRPRO 14:06
PROVIDERS: ATTEND Physician Assistant Medical
DX: E04.1 Nontoxic single thyroid nodule (principal)

== ENCOUNTER 2024-12-30 23:43 | Emergency (ER) | payer MEDICARE, MEDICAID ==
[~2024-12-30] VITALS: Ht 149.9 cm; Wt 61.9 kg
[~2024-12-30 23:43] MED LIST changes: -LIDOCAINE 1% MDV 20 ML VIAL SC SCH
[2024-12-31 02:48] VITALS: BP 158/71; TEMP 98; O2SAT 98
== END 2024-12-31 03:31 | disposition home or self-care (01) ==
LOC: M ED 23:43
DX: S00.03XA Contusion of scalp, initial encounter (principal); M25.512 Pain in left shoulder; W19.XXXA Unspecified fall, initial encounter; Y92.410 Unspecified street and highway as the place of occurrence of the external cause; Y93.9 Activity, unspecified; Y99.9 Unspecified external cause status; M19.012 Primary osteoarthritis, left shoulder; I10 Essential (primary) hypertension; E78.5 Hyperlipidemia, unspecified; K21.9 Gastro-esophageal reflux disease without esophagitis; Z86.73 Personal history of transient ischemic attack (TIA), and cerebral infarction without residual deficits; R56.9 Unspecified convulsions; Z79.899 Other long term (current) drug therapy; Z88.1 Allergy status to other antibiotic agents

== ENCOUNTER 2025-02-10 18:37 | Emergency (ER) | payer MEDICARE, MEDICAID ==
[2025-02-10 19:58] VITALS: TEMP 97.4
[2025-02-10 20:35] VITALS: BP 156/77
[2025-02-10] MEDS: ACETAMINOPHEN *IV* 1,000 MG in IV 1 EA IV ONE (20:44)
[2025-02-10 21:21] LABS: BASO # 0.1 10^3/uL (0.0-0.2); BASO % 0.3 % (0.0-1.0); EOS # 0.2 10^3/uL (0.0-0.5); EOS % 1.1 % (0.0-3.0); LYMPH # 5.7 10^3/uL (1.5-5.0); LYMPH % 37.3 % (24.0-44.0); MONO # 0.7 10^3/uL (0.0-0.8); MONO % 4.4 % (2.0-8.0); NEUTROPHILS # 8.6 10^3/uL (1.5-8.5); NEUTROPHILS % 56.7 % (36.0-66.0); PLATELET COUNT, AUTOMATED 212 10^3/uL (150-450)
[2025-02-10 21:47] LABS: INR 0.96
[2025-02-10 21:52] VITALS: O2SAT 98
[2025-02-10 21:52] LABS: CALCIUM LEVEL 9.6 MG/DL (8.3-10.6); CARBON DIOXIDE LEVEL 32 MMOL/L (20-31); CHLORIDE LEVEL 96 MMOL/L (98-107); CREATININE FOR GFR 0.51 MG/DL (0.55-1.30); GLOMERULAR FILTRATION RATE > 90.0 (>39); POTASSIUM SERUM 3.8 MMOL/L (3.5-5.1); SODIUM LEVEL 136 MMOL/L (136-145)
[2025-02-17] MEDS ORDERED: ASPI-551 PO (13:52)
[2025-02-17] MEDS ORDERED: CAL-1CHW PO (13:55)
== END 2025-02-11 00:19 | disposition home or self-care (01) ==
LOC: M ED 18:37 → EDBD 18:37 → M ED 02-11 00:19
DX: S01.81XA Laceration without foreign body of other part of head, initial encounter (principal); W19.XXXA Unspecified fall, initial encounter; Y92.009 Unspecified place in unspecified non-institutional (private) residence as the place of occurrence of the external cause; Y93.89 Activity, other specified; Y99.9 Unspecified external cause status; Z86.73 Personal history of transient ischemic attack (TIA), and cerebral infarction without residual deficits; Z79.899 Other long term (current) drug therapy; Z88.1 Allergy status to other antibiotic agents; Z79.01 Long term (current) use of anticoagulants
CPT/HCPCS: 70450; 70486; 72125; 80048; 85025; 85610; 85730; 96365; 99284; J0134